=== PATIENT | female | born 1960 | race Caucasian/White ===

== ENCOUNTER 2018-12-01 21:02 | Inpatient (IN) | payer MEDICARE ==
[2018-12-01 21:56] LABS: #Basophils 0.1 thou/uL (0.0-0.2); #Eosinphils 0.1 thou/uL (0.0-0.7); #Lymphocytes 1.5 thou/uL (1.20-3.40); #Monocytes 0.6 thou/uL (0.11-0.59); #Neutrophils 6.3 thou/uL (1.40-6.50); %Basophils 0.7 % (0.0-1.0); %Eosinophils 1.3 % (0.0-10.0); %Lymphocytes 17.7 % (21.0-51.0); %Monocytes 7.1 % (0.0-10.0); %Neutrophils 73.2 % (42.0-75.0); Hemoglobin 9.6 g/dL (12.0-16.0); Mean Corpuscular HGB CONC 32.6 g/dL (32.0-36.0); Mean Corpuscular Hemoglobin 27.1 pg (27.0-31.0); Mean Corpuscular Volume 83.1 fL (78.0-98.0); Mean Platelet Volume 9.4 fL (7.4-10.4); Platelet Count 283 thou/uL (130-400); RBC Distribution Width 19.8 % (11.5-14.5); Red Blood Cell (RBC) Count 3.53 mill/uL (4.20-5.40); White Blood Cell (WBC) Count 8.6 thou/uL (4.8-10.8)
[2018-12-01 22:02] LABS: INR-International Normal Ratio 3.8; Prothrombin Time 37.7 SEC (12.0-14.7)
[2018-12-01 22:15] LABS: ALT (SGPT) Less than 7 U/L (8-55); AST (SGOT) 11 U/L (5-34); Albumin 3.7 g/dL (3.5-5.0); Alkaline Phosphatase 60 U/L (40-150); Anion Gap 12 mmol/L (10-20); BUN (Urea Nitrogen) 38 mg/dL (9.8-20.1); Bilirubin, Total 0.7 mg/dL (0.2-1.2); Calc. Creatinine Clearance 0 mL/min (70-130); Calcium 9.6 mg/dL (7.8-10.44); Carbon Dioxide 25 mmol/L (22-29); Chloride 102 mmol/L (98-107); Estimated GFR-MDRD 24; Globulin 2.7 g/dL (2.4-3.5); Glucose 95 mg/dL (70-105); Potassium 3.4 mmol/L (3.5-5.1); Protein, Total 6.4 g/dL (6.0-8.3); Sodium 136 mmol/L (136-145)
[2018-12-02 01:12] VITALS: BMI 24.7
[2018-12-02 01:18] LABS: Troponin I 0.026 ng/mL (< 0.028)
[2018-12-02] MEDS ORDERED: Ondansetron PF 4 MG/2 ML Vial IVP PRN ×2 (02:23→07:40)
[2018-12-02] MEDS ORDERED: Sodium Chloride 0.9% 1,000 ML IV SCH (02:23)
[2018-12-02 04:42] LABS: Troponin I 0.041 ng/mL (< 0.028)
[2018-12-02] MEDS ORDERED: Diabetic Tussin 200 MG/10 ML UDCUP PO PRN (07:40)
[2018-12-02] MEDS ORDERED: hydrALAZINE 20 MG/ML VIAL SLOW IVP PRN (07:40)
[2018-12-02] MEDS ORDERED: Artificial Tears 18 DROP/0.9 ML EA EYE PRN (07:40)
[2018-12-02] MEDS ORDERED: Bisacodyl 10 MG SUPP PR PRN (07:40)
[2018-12-02] MEDS ORDERED: Sodium Chloride 0.65% Nasal 44 ML BOT EA NARE PRN (07:40)
[2018-12-02] MEDS ORDERED: Calcium Carbonate 500 MG ChewTAB PO PRN (07:40)
[2018-12-02] MEDS ORDERED: Senokot S 8.6-50 MG TAB PO PRN (07:40)
[2018-12-02] MEDS ORDERED: Eucerin (Mineral Oil/Petrolatum,White) 30 gm Jar TOP PRN (07:40)
[2018-12-02] MEDS ORDERED: Cepastat Lozenges 1 LOZ PO PRN (07:40)
[2018-12-02] MEDS ORDERED: Acetaminophen 325 MG TAB PO PRN (07:40)
[2018-12-02] MEDS ORDERED: Loperamide HCl 2 MG CAP PO PRN (07:40)
[2018-12-02] MEDS ORDERED: Loratadine 10 MG TAB PO PRN (07:40)
[2018-12-02] MEDS ORDERED: Ondansetron ODT 4 MG TAB SL PRN (07:40)
[2018-12-02] MEDS ORDERED: LEVOTHYROXINE SODIUM PO SCH (09:00)
[2018-12-02] MEDS: FLUoxetine HCl 20 MG CAP PO SCH (09:06)
[2018-12-02] MEDS: Atorvastatin Calcium 40 MG TAB PO SCH (09:06)
[2018-12-02] MEDS: 1/2 NS w/KCL 20 mEq 1,000 ML IV SCH ×2 (09:06→21:47)
[2018-12-02] MEDS: predniSONE 5 MG TAB PO SCH (09:07)
[2018-12-02] MEDS: Pantoprazole 40 MG VIAL IVP SCH ×2 (09:07→21:10)
[2018-12-02 09:24] LABS: Iron 19 ug/dL (50-170); Iron Binding Capacity, Total 339 mcg/dL (265-497)
[2018-12-02] MEDS: cycloSPORINE, Modified 25 MG CAP PO SCH ×2 (09:53→21:10)
[2018-12-02] MEDS: cycloSPORINE, Modified 100 MG CAP PO SCH ×2 (09:54→21:09)
--- NOTE | 2018-12-02 10:49 | CON ---
DATE OF CONSULTATION: HISTORY OF PRESENT ILLNESS: The patient is a 58-year-old woman, who presented with melenic stools. The patient has a history of aortic valve replacement. Nearly 20 years ago, the patient placement of an aortic valve. She has been on chronic anticoagulation. The patient has had previous GI hemorrhages. The patient most recently 4 months ago had a peripheral stent placed. Plavix was added to her medications which included Coumadin and aspirin. The patient states she recently that developed melenic stools. She presented to the emergency room. The patient's INR had recently been elevated. The patient denies having any chest discomfort. PAST MEDICAL HISTORY: 1. AVR. 2. Peripheral vascular disease. 3. Hypertension. 4. History of renal transplantation. 5. Dyslipidemia. 6. Hypothyroidism. PAST SURGICAL HISTORY: , renal transplant, aortic valve replacement, ankle surgery and a . SOCIAL HISTORY: Nonsmoker. MEDICATIONS: 1. Coumadin 7.5 mg at bedtime. 2. Prednisone 5 daily. 3. Prilosec 20 daily. 4. CellCept 1000 b.i.d. 5. Prilosec 20 daily. 6. Toprol 50 XL daily. 7. Synthroid 75 mcg daily. 8. Imdur 60 q.a.m. 9. Prozac 20 daily. 10. Hydrochlorothiazide 12.5 daily. 11. Aspirin 81 daily. 12. Plavix 75 daily. 13. Lipitor 40 at bedtime. 14. Cyclosporine 25 mg p.o. b.i.d. 15. Docosahexaenoic acid 2000 mg daily. FAMILY HISTORY: Positive family history of heart disease. ALLERGIES: ALLERGIC TO OPIOIDS AND CIPROFLOXACIN. REVIEW OF SYSTEMS: Ten-point system, otherwise unremarkable. PHYSICAL EXAMINATION: GENERAL: This is a pale woman, in no acute distress. VITAL SIGNS: Blood pressure of 112/58. NECK: No jugular venous distention. LUNGS: Clear to auscultation. HEART: Regular rate and rhythm. Normal S1 and S2 with an aortic click. 3/6 systolic murmur. ABDOMEN: Nondistended. EXTREMITIES: Showed no edema. VASCULAR: Radial pulses 2+. LABORATORY DATA: Sodium 136, potassium 3.4, chloride 102, bicarbonate 25, BUN 30, and creatinine is 2.1. Troponin was 0.041. Her white blood cell count is 8.6, hemoglobin 9.6, hematocrit 29.4, and platelets 283. INR was 3.8. IMAGING DATA: EKG revealed her to have sinus bradycardia with a left bundle- branch block. IMPRESSION: 1. Gastrointestinal hemorrhage, on triple drug therapy. 2. History of aortic valve replacement. 3. History of renal transplant. 4. Hypertension. 5. History of peripheral vascular disease, status post percutaneous transluminal coronary angioplasty and stent. 6. Dyslipidemia. PLAN: This patient relates with a GI hemorrhage, she was on triple drug therapy. The patient can be taken off Plavix and she had a peripheral stent. We will hold aspirin and Coumadin at this time. It is possible to safely hold the anticoagulation for approximately a week with a mechanical aortic valve. We will await GI evaluation. We will check the patient's echocardiogram and follow this patient with you through her hospitalization. Job ID: [id number] LEIA
[2018-12-02] MEDS: Mycophenolate 250 MG CAP PO SCH ×2 (10:52→21:09)
--- NOTE | 2018-12-02 12:09 | HP ---
PRIMARY CARE PHYSICIAN: Dr. Dahiana Gordon at [facility]. REASON FOR ADMISSION: GI bleed. HISTORY OF PRESENT ILLNESS: A 58-year-old female, who has history of a mechanical aortic wall and for that she is on chronic anticoagulation therapy with warfarin. She is also having stent in her right lower extremity for peripheral arterial disease, which was done about a year ago and she is taking aspirin as well as Plavix chronically. The patient was having coffee-ground emesis and she was also having black tarry stool. The patient was feeling generalized weak. This was going on for last about 3 to 4 days, but coffee-ground vomiting started yesterday. She was feeling dizzy, lightheaded, and that is why she went to [facility], where her hemoglobin was found 6.5. She was given 2 units of blood transfusion. She was given vitamin K as well as Protonix and subsequently, she was transferred to our hospital for further evaluation and treatment. The patient reports that she had similar type of problem in past and at that time she had endoscopy done in 2008. Since then, she never had any endoscopy done. The patient denies any NSAID abuse. She denies any fever or chills. She denies any UTI symptoms. She denies any chest pain, palpitation, or shortness of breath. She denies any orthopnea, PND, or leg swelling. REVIEW OF SYSTEMS: CONSTITUTIONAL: Negative for weight loss or gain, ability to conduct usual activities. SKIN: Negative for rash, itching. EYES: Negative for double vision, pain. ENT/MOUTH: Negative for nose bleeding, neck stiffness, pain, tenderness. CARDIOVASCULAR: Negative for palpitations, dyspnea on exertion, orthopnea. RESPIRATORY: Negative for shortness of breath, wheezing, cough, hemoptysis, fever or night sweats. GASTROINTESTINAL: Negative for poor appetite, abdominal pain, heartburn, nausea, vomiting, constipation, or diarrhea. GENITOURINARY: Negative for urgency, frequency, dysuria, nocturia. MUSCULOSKELETAL: Negative for pain, swelling. NEUROLOGIC/PSYCHIATRIC: Negative for anxiety, depression. ALLERGY/IMMUNOLOGIC: Negative for skin rash, bleeding tendency. Please see my HPI for pertinent positives and negatives. All other review of systems reviewed and negative except as mentioned in HPI. PAST MEDICAL HISTORY: Hypertension, chronic kidney disease stage 4, hypothyroidism, peripheral arterial disease, coronary artery disease, dyslipidemia, hypothyroidism, history of renal transplant, immunosuppressive status, and gastroesophageal reflux disease. PAST SURGICAL HISTORY: Left kidney transplantation, bilateral nephrectomy, mechanical aortic wall, , peripheral arterial disease stent placement, and right ankle ORIF. PAST PSYCHIATRIC HISTORY: Anxiety and depression. SOCIAL HISTORY: The patient is an ex-smoker. She quit smoking several years ago. She denies any tobacco, alcohol, or illicit drug abuse. FAMILY HISTORY: No family history of coronary artery disease, stroke, or cancer. ALLERGIES: CIPROFLOXACIN AND OPIOID. CURRENT HOME MEDICATIONS: 1. Tylenol PM 2 tablet p.o. at bedtime. 2. Aspirin 81 mg daily. 3. Lipitor 40 mg p.o. daily. 4. Plavix 75 mg p.o. daily. 5. Cyclosporine 125 mg p.o. b.i.d. 6. Fish oil daily. 7. Prozac 20 mg daily. 8. Hydrochlorothiazide 12.5 mg daily. 9. Imdur 60 mg daily. 10. Synthroid 75 mcg p.o. daily. 11. Metoprolol with hydrochlorothiazide 1 tablet daily. 12. CellCept 1000 mg b.i.d. 13. Omeprazole 20 mg daily. 14. Prednisone 5 mg daily. 15. Warfarin 7.5 mg p.o. daily. EMERGENCY ROOM COURSE: The patient was given Protonix 80 mg, vitamin K 5 mg, and 2 units of blood transfusion. PHYSICAL EXAMINATION: VITAL SIGNS: Currently; temperature 98.7, pulse 72, respiratory rate 18, saturation 98% on room air, and blood pressure 112/58. Weight 148 pounds. GENERAL: The patient is currently alert, awake, in no obvious acute distress. HEENT: Head, normocephalic and atraumatic. Eyes, conjunctivae pale. No icterus. No nystagmus. ENT, pale mucous membranes. No oral lesion. No pharyngeal erythema. No exudate. NECK: Supple. No JVD. No thyromegaly. No carotid bruit. LUNGS: Clear to auscultation without any rhonchi or rales. CARDIAC: S1 and S2. Regular. Mechanical heart sound noted. Systolic murmur present. ABDOMEN: Soft and benign without any tenderness. EXTREMITIES: No edema. NEUROLOGIC: Nonfocal examination. BACK: Unremarkable. SKIN: No skin rash. Pallor plus. PSYCHIATRIC: Normal affect. SIGNIFICANT LABORATORY DATA: WBC 8.4, hemoglobin 6.2, MCV 77.4, and platelet 313. INR 5.6. BMP; sodium 139, potassium 4.3, chloride 103, carbon dioxide 24, BUN 44, creatinine 2.26, glucose 126, calcium 9.8, AST 9, ALT 7, alkaline phosphatase 60, and albumin 3.7. CK-MB 1.4 and troponin 0.024. Iron 19, TIBC 339, and percent saturation 6. Urinalysis normal. Stool for guaiac positive. Chest x-ray based on my review no acute cardiopulmonary process. ASSESSMENT AND PLAN: 1. Acute gastrointestinal bleed. The patient has coffee-grounds emesis, melena, and guaiac-positive stool. Her hemoglobin is 6.4. She required 2 units of blood transfusion. Currently, hemoglobin is 9.6. The patient is on aspirin and Plavix, as well as warfarin and prednisone, that makes her high risk for gastrointestinal bleed. Her coagulopathy has been reversed partially with vitamin K. At this point, I will consult Cardiology as well as Gastroenterology to determine the starting point of chronic anticoagulation therapy given her mechanical aortic wall. At this point, we will hold on aspirin, warfarin, and Plavix. We will consult medical laboratory specialist for endoscopic evaluation. We will monitor H and H. We will continue with Protonix 40 mg IV b.i.d. 2. Anemia due to acute blood loss. The patient was given 2 units of blood transfusion. Currently, hemoglobin is 9.6. We will repeat CBC tomorrow and we will repeat hemoglobin any time whenever the patient has any episode of bleeding. Our goal is to keep hemoglobin above 7. 3. Warfarin-induced coagulopathy. Given vitamin K and currently INR is 3.8. Given mechanical aortic wall, the patient will need warfarin and aspirin, but we will consult Cardiology when to start this medication as well as we will wait for endoscopic result as well. 4. Chronic kidney disease stage 4. We will monitor renal function. The patient is following Nephrology at [facility]. 5. History of renal transplant. The patient is on chronic immunosuppressive therapy with cyclosporine, mycophenolate mofetil, and prednisone, which we will continue as per home dosage. 6. Immunosuppressed status. The patient is immunosuppressive from immunosuppressive medication. We will watch for any kind of infection. 7. Dyslipidemia. Continue Lipitor 40 mg p.o. at bedtime. 8. Anxiety and depression. Continue Prozac 20 mg p.o. daily. 9. Hypothyroidism. Continue levothyroxine 75 mcg p.o. daily. 10. Gastroesophageal reflux disease. Continue Protonix 40 mg IV b.i.d. 11. Hypertension, but currently low blood pressure and that is why we will hold on blood pressure medication today and whenever blood pressure permits, then we will resume blood pressure medication. 12. Deep venous thrombosis prophylaxis. Sequential compression devices boots. 13. Gastrointestinal prophylaxis. The patient is already on Protonix therapy. 14. Hypokalemia. We will replace IV fluid with potassium and we will repeat labs tomorrow. CODE STATUS: The patient is full code. The patient does not have any surrogate decision maker. DISPOSITION PLAN: Based on clinical course, we are expecting the patient's stay in hospital more than 2 midnights. Plan of care discussed with the patient and family member. Job ID: [id number]
--- NOTE | 2018-12-02 14:02 | CON ---
DATE OF CONSULTATION: 12/02/2018 REASON FOR CONSULTATION: Anemia and gastrointestinal bleed. HISTORY OF PRESENT ILLNESS: Ms. Cherry is a 58-year-old female, who presented to [facility] [facility] initially after having an episode of coffee-ground emesis. There, she was noted to be profoundly anemic with a hemoglobin of 6.5 with a supratherapeutic INR of 8.5. She does not have any abdominal pain. She does have preceding periodic dysphagia mostly to solid food. She denies having any melenic stool. As mentioned before, she did have coffee-grounds emesis but no ac hematemesis. Currently, she had received 2 units of RBC transfusion and vitamin K in the outlying ER. This morning, her INR has decreased down to 3+. Currently, she feels fine with normal vitals without any other physical complaints. PAST MEDICAL HISTORY: 1. Hypothyroidism. 2. Hypertension. 3. Hyperlipidemia. 4. History of GI bleed in 2008. Reportedly had both upper and lower endoscopy. 5. Status post aortic valve replacement, mechanical bowel on chronic anticoagulant. 6. Status post nephrectomy. 7. Kidney transplant bilaterally. 8. . 9. Peripheral vascular disease with one lower extremity stent. HOME MEDICATIONS: Include: 1. Coumadin. 2. Prednisone. 3. CellCept. 4. Levothyroxine. 5. Imdur. 6. HCTZ. 7. Cyclosporine. 8. Plavix. 9. Aspirin. 10. Tylenol p.r.n. pain. SOCIAL HISTORY: The patient has prior history of smoking. No active tobacco or alcohol usage. FAMILY HISTORY: Negative for any known GI problem, liver disease, or GI malignancy. PHYSICAL EXAMINATION: VITAL SIGNS: Temperature is 97.8, blood pressure 123/71, pulse of 75. HEENT: Head exam shows anicteric sclerae. NECK: Supple. CV: Shows normal S1 and S2. Regular rate and rhythm. CHEST: Shows breath sounds. No adventitious sounds. ABDOMEN: Soft, nontender. Good bowel sounds. EXTREMITIES: Shows no edema. LABORATORY DATA: WBC 8.6, hemoglobin 9.6 (after 2 units RBC). Platelet count of 283, MCV of 83.1, and INR 3.8. Electrolytes within normal range. Creatinine 2.1, bilirubin 0.7, AST of 11, ALT of less than 7. ASSESSMENT: 1. Evidence of upper gastrointestinal bleed characterized as coffee-ground emesis. The patient does not have any signs of ongoing severe bleeding at the present time. 2. Anemia from acute gastrointestinal blood loss. Unknown baseline at this point. Her blood count has risen after transfusion. RECOMMENDATIONS: 1. Proceed with endoscopy to elucidate source of bleeding and to control if necessary. 2. Further recommendation to follow pending endoscopic finding. Job ID: [id number]
--- NOTE | 2018-12-02 14:57 | OP ---
DATE OF PROCEDURE: 12/02/2018 PROCEDURE PERFORMED: Esophagogastroduodenoscopy. PREMEDICATION: Given by Anesthesiology Department. PREPROCEDURE DIAGNOSES: 1. Coffee-grounds emesis. 2. Severe anemia. POSTPROCEDURE DIAGNOSES: 1. LA grade C severe erosive esophagitis with stigmata of recent bleed. 2. 5 cm hiatal hernia. 3. Normal stomach and duodenum. DESCRIPTION OF PROCEDURE: Written consents were obtained prior to procedure. After adequate sedation, forward viewing endoscope was advanced down the stomach under direct vision to the second portion of duodenum. The duodenum and the bulb appeared normal. The pylorus was patent. The gastric antrum, body, fundus, and cardia all appeared normal. Retroflexion showed a hiatal hernia. The gastric narrowing appears at 40 cm with Z-line approximately at 35 cm. In the lower esophagus, there was severe erosive esophagitis circumferentially involved in the lower 15 cm of the esophagus. There was adherent amount of blood clot that was declotted. No active bleeding was seen. The upper esophagus appeared normal. The patient tolerated the procedure well. ASSESSMENT: 1. Severely erosive esophagitis. 2. Large hiatal hernia. RECOMMENDATION: 1. Pantoprazole 40 mg p.o. b.i.d. on discharge. 2. The patient needs to be re-scoped in approximately 3 months to evaluate status of her esophagitis and to exclude any underlying Mejia's. Job ID: [id number]
[2018-12-02] MEDS ORDERED: Lidocaine 1% PF 5 ML VIAL ONE (16:05)
[2018-12-02] MEDS ORDERED: PROPOFOL 200 MG/20 ML VIAL ONE (16:05)
[2018-12-02] MEDS: Zolpidem Tartrate 5 MG TAB PO PRN (21:20)
[2018-12-03 05:55] LABS: INR-International Normal Ratio 1.3
[2018-12-03 06:00] LABS: #Basophils 0.1 thou/uL (0.0-0.2); #Eosinphils 0.2 thou/uL (0.0-0.7); #Lymphocytes 1.5 thou/uL (1.20-3.40); #Monocytes 0.6 thou/uL (0.11-0.59); %Basophils 1.1 % (0.0-1.0); %Eosinophils 2.9 % (0.0-10.0); %Lymphocytes 28.4 % (21.0-51.0); %Monocytes 10.7 % (0.0-10.0); %Neutrophils 56.9 % (42.0-75.0); Hemoglobin 9.4 g/dL (12.0-16.0); Mean Corpuscular HGB CONC 31.9 g/dL (32.0-36.0); Mean Corpuscular Hemoglobin 26.9 pg (27.0-31.0); Mean Corpuscular Volume 84.4 fL (78.0-98.0); Mean Platelet Volume 9.9 fL (7.4-10.4); Platelet Count 259 thou/uL (130-400); RBC Distribution Width 19.8 % (11.5-14.5); Red Blood Cell (RBC) Count 3.49 mill/uL (4.20-5.40); White Blood Cell (WBC) Count 5.2 thou/uL (4.8-10.8)
[2018-12-03] MEDS: Levothyroxine Sodium 75 MCG TAB PO SCH (06:19)
[2018-12-03 06:24] LABS: ALT (SGPT) 7 U/L (8-55); AST (SGOT) 14 U/L (5-34); Albumin 3.4 g/dL (3.5-5.0); Alkaline Phosphatase 53 U/L (40-150); Anion Gap 15 mmol/L (10-20); BUN (Urea Nitrogen) 19 mg/dL (9.8-20.1); Bilirubin, Total 1.1 mg/dL (0.2-1.2); Calc. Creatinine Clearance 43 mL/min (70-130); Calcium 9.4 mg/dL (7.8-10.44); Carbon Dioxide 21 mmol/L (22-29); Chloride 107 mmol/L (98-107); Estimated GFR-MDRD 35; Globulin 2.7 g/dL (2.4-3.5); Glucose 72 mg/dL (70-105); Potassium 3.9 mmol/L (3.5-5.1); Protein, Total 6.1 g/dL (6.0-8.3); Sodium 139 mmol/L (136-145)
--- NOTE | 2018-12-03 09:16 | PDOC.PN ---
- Subjective Encounter Start Date: 12/03/18 Encounter Start Time: 07:20 Patient seen and examined. No new complaints. No overnight events - Objective Resuscitation Status - Order Detail: 12/02/18 07:37 Resuscitation Status Routine Resuscitation Status: FULL: Full Resuscitation MAR Reviewed: Yes Vital Signs & Weight: Vital Signs (12 hours) Temp Pulse Resp BP Pulse Ox 12/03/18 07:33 98.1 F 59 L 20 142/71 H 96 12/03/18 03:12 98.2 F 81 18 118/65 99 Weight Admit Weight 148 lb 4.8 oz Weight 149 lb 2 oz I&O: 12/02/18 12/03/18 12/04/18 06:59 06:59 06:59 Intake Total 227 1365 Output Total 2200 Balance 227 -835 Result Diagrams: 12/03/18 05:16 12/03/18 05:16 EKG Reviewed by me: Yes (nsr) Phys Exam - Physical Examination Constitutional: NAD HEENT: PERRLA, moist MMs, sclera anicteric Neck: no JVD, supple Respiratory: no wheezing, no rales, no rhonchi Cardiovascular: RRR, no rub SM+, prosthetic click+ Gastrointestinal: soft, non-tender, no distention, positive bowel sounds Musculoskeletal: no edema, pulses present Neurological: non-focal, normal sensation Lymphatic: no nodes Psychiatric: normal affect, A&O x 3 Skin: no rash, normal turgor Dx/Plan (1) Acute GI bleeding Code(s): K92.2 - GASTROINTESTINAL HEMORRHAGE, UNSPECIFIED Status: Acute (2) Anemia due to acute blood loss Code(s): D62 - ACUTE POSTHEMORRHAGIC ANEMIA Status: Acute (3) Erosive esophagitis Code(s): K22.10 - ULCER OF ESOPHAGUS WITHOUT BLEEDING Status: Acute (4) Warfarin-induced coagulopathy Code(s): D68.32 - HEMORRHAGIC DISORD D/T EXTRINSIC CIRCULATING ANTICOAGULANTS; T45.515A - ADVERSE EFFECT OF ANTICOAGULANTS, INITIAL ENCOUNTER Status: Acute (5) Anxiety and depression Code(s): F41.9 - ANXIETY DISORDER, UNSPECIFIED; F32.9 - MAJOR DEPRESSIVE DISORDER, SINGLE EPISODE, UNSPECIFIED Status: Chronic (6) CKD (chronic kidney disease) stage 4, GFR 15-29 ml/min Code(s): N18.4 - CHRONIC KIDNEY DISEASE, STAGE 4 (SEVERE) Status: Chronic (7) Chronic anticoagulation Code(s): Z79.01 - MISSIONARY COORDINATOR (CURRENT) USE OF ANTICOAGULANTS Status: Chronic (8) Dyslipidemia Code(s): E78.5 - HYPERLIPIDEMIA, UNSPECIFIED Status: Chronic (9) GERD (gastroesophageal reflux disease) Code(s): K21.9 - GASTRO-ESOPHAGEAL REFLUX DISEASE WITHOUT ESOPHAGITIS Status: Chronic (10) H/O kidney transplant Status: Chronic (11) H/O mechanical aortic valve replacement Code(s): Z95.2 - PRESENCE OF PROSTHETIC HEART VALVE Status: Chronic (12) Hiatal hernia Code(s): K44.9 - DIAPHRAGMATIC HERNIA WITHOUT OBSTRUCTION OR GANGRENE Status: Chronic (13) Hypertension Code(s): I10 - ESSENTIAL (PRIMARY) HYPERTENSION Status: Chronic (14) Hypothyroidism Code(s): E03.9 - HYPOTHYROIDISM, UNSPECIFIED Status: Chronic (15) Immunosuppressed status Code(s): D89.9 - DISORDER INVOLVING THE IMMUNE MECHANISM, UNSPECIFIED Status: Chronic - Plan cont current plan of care * will start warfarin when GI OK * medication reviewed as below * symptomatic treatment * overall stable medically * will consider discharge tomorrow * repeat labs tomorrow * ambulate as tolerated. Review of Systems - Review of Systems ENT: negative: Ear Pain, Ear Discharge, Nose Pain, Nose Discharge, Nose Congestion, Mouth Pain, Mouth Swelling, Throat Pain, Throat Swelling, Other Respiratory: negative: Cough, Dry, Shortness of Breath, Hemoptysis, SOB with Excertion, Pleuritic Pain, Sputum, Wheezing Cardiovascular: negative: chest pain, palpitations, orthopnea, paroxysmal nocturnal dyspnea, edema, light headedness, other Gastrointestinal: negative: Nausea, Vomiting, Abdominal Pain, Diarrhea, Constipation, Melena, Hematochezia, Other Genitourinary: negative: Dysuria, Frequency, Incontinence, Hematuria, Retention , Other Musculoskeletal: negative: Neck Pain, Shoulder Pain, Arm Pain, Back Pain, Hand Pain, Leg Pain, Foot Pain, Other - Medications/Allergies Allergies/Adverse Reactions: Allergies Allergy/AdvReac Type Severity Reaction Status Date / Time ciprofloxacin Allergy Verified 12/02/18 01:17 Opioids-Meperidine and Allergy Verified 12/02/18 01:17 Related Medications: Current Medications Acetaminophen (Tylenol) 650 mg PO Q4H PRN PRN Reason: Headache/Fever/Mild Pain (1-3) Artificial Tears (Tears Naturale) 2 drop EA EYE PRN PRN PRN Reason: Dry Eyes Atorvastatin Calcium (Lipitor) 40 mg PO DAILY [facility] Last Admin: 12/02/18 09:06 Dose: 40 mg Bisacodyl (Dulcolax) 10 mg NM DAILYPRN PRN PRN Reason: Constipation Calcium Carbonate (Tums) 1,000 mg PO Q4H PRN PRN Reason: Heartburn or Indigestion Cyclosporine (Neoral) 25 mg PO BID [facility] Last Admin: 12/02/18 21:10 Dose: 25 mg Cyclosporine (Neoral) 100 mg PO BID [facility] Last Admin: 12/02/18 21:09 Dose: 100 mg Fluoxetine HCl (Prozac) 20 mg PO DAILY [facility] Last Admin: 12/02/18 09:06 Dose: Not Given Guaifenesin (Robitussin Sf) 200 mg PO Q4H PRN PRN Reason: Cough Hydralazine HCl (Apresoline) 10 mg SLOW IVP Q4H PRN PRN Reason: SBP > 180 and HR < 70 Levothyroxine Sodium (Synthroid) 75 mcg PO 0600 [facility] Last Admin: 12/03/18 06:19 Dose: 75 mcg Loperamide HCl (Imodium) 2 mg PO PRN PRN PRN Reason: Diarrhea/Loose Stools Loratadine (Claritin) 10 mg PO DAILYPRN PRN PRN Reason: Sinus Symptoms Mineral Oil/White Petrolatum (Eucerin Cream) 0 gm TOP BIDPRN PRN PRN Reason: Dry Skin Mycophenolate Mofetil (Cellcept) 1,000 mg PO BID [facility] Last Admin: 12/02/18 21:09 Dose: 1,000 mg Ondansetron HCl (Zofran Odt) 4 mg SL Q6H PRN PRN Reason: Nausea/Vomiting Ondansetron HCl (Zofran) 4 mg IVP Q6H PRN PRN Reason: Nausea/Vomiting Pantoprazole Sodium (Protonix) 40 mg IVP Q12HR [facility] Last Admin: 12/02/18 21:10 Dose: 40 mg Prednisone (Prednisone) 5 mg PO DAILY [facility] Last Admin: 12/02/18 09:07 Dose: 5 mg Senna/Docusate Sodium (Senokot S) 2 tab PO BID PRN PRN Reason: Constipation Sodium Chloride ([place] Nasal [place] 0.65%) 0 ml EA NARE QIDPRN PRN PRN Reason: Nasal Congestion Sodium Chloride (Flush - Normal Saline) 10 ml IVF Q12HR JANEL[facility] Last Admin: 12/02/18 21:10 Dose: 10 ml Sodium Chloride (Flush - Normal Saline) 10 ml IVF PRN PRN PRN Reason: Saline Flush Throat Lozenges (Cepastat Lozenges) 1 mikhail PO Q2H PRN PRN Reason: Sore Throat Zolpidem Tartrate (Ambien) 5 mg PO HSPRN PRN PRN Reason: Insomnia Last Admin: 12/02/18 21:20 Dose: 5 mg
[2018-12-03] MEDS: predniSONE 5 MG TAB PO SCH (09:33)
[2018-12-03] MEDS: FLUoxetine HCl 20 MG CAP PO SCH (09:33)
[2018-12-03] MEDS: Atorvastatin Calcium 40 MG TAB PO SCH (09:33)
[2018-12-03] MEDS: Mycophenolate 250 MG CAP PO SCH ×2 (09:34→21:25)
[2018-12-03] MEDS: cycloSPORINE, Modified 100 MG CAP PO SCH ×2 (09:35→21:25)
[2018-12-03] MEDS: Pantoprazole 40 MG VIAL IVP SCH (09:35)
[2018-12-03] MEDS: cycloSPORINE, Modified 25 MG CAP PO SCH ×2 (09:36→21:25)
--- NOTE | 2018-12-03 16:57 | PRG ---
DATE OF SERVICE: 12/03/2018 SUBJECTIVE: The patient feels fine. She denies having any nausea, vomiting, or abdominal pain. No evidence of bleeding. OBJECTIVE: VITAL SIGNS: Temperature is 98.9, blood pressure 135/66, pulse is 77. GENERAL: She is alert, sitting up, in no distress. HEENT: Shows anicteric sclerae. Oropharynx clear. CV: Exam shows normal S1 and S2. Regular rate and rhythm. CHEST: Shows bilateral breath sounds. ABDOMEN: Soft, nontender. No palpable mass or organomegaly. She has active bowel sounds. EXTREMITIES: Show no edema. LABORATORY DATA: WBCs 5.2, hemoglobin 9.4, platelet count of 259. INR is 1.3. Electrolytes within normal range. Creatinine 1.53. ASSESSMENT: 1. Gastroesophageal reflux with hiatal hernia and severe erosive esophagitis. 2. Status post upper gastrointestinal bleeding from supratherapeutic INR. No further signs of bleeding with stable blood count. RECOMMENDATION: 1. Advanced diet to regular. 2. The patient can change to p.o. pantoprazole 40 mg b.i.d. 3. Can be discharged to home from GI standpoint tomorrow if all goes well. We will need to have followup EGD at [facility] in 2 to 3 months to assess healing and exclude any underlying Mejia's. Job ID: [id number]
[2018-12-03] MEDS: Zolpidem Tartrate 5 MG TAB PO PRN (21:26)
[2018-12-04 05:08] LABS: #Eosinphils 0.2 thou/uL (0.0-0.7); #Lymphocytes 1.6 thou/uL (1.20-3.40); #Monocytes 0.5 thou/uL (0.11-0.59); #Neutrophils 3.1 thou/uL (1.40-6.50); %Basophils 0.6 % (0.0-1.0); %Eosinophils 3.4 % (0.0-10.0); %Lymphocytes 29.1 % (21.0-51.0); %Monocytes 9.4 % (0.0-10.0); %Neutrophils 57.6 % (42.0-75.0); Hemoglobin 9.9 g/dL (12.0-16.0); Mean Corpuscular HGB CONC 31.9 g/dL (32.0-36.0); Mean Corpuscular Hemoglobin 27.4 pg (27.0-31.0); Mean Platelet Volume 10.2 fL (7.4-10.4); Platelet Count 276 thou/uL (130-400); RBC Distribution Width 19.7 % (11.5-14.5); Red Blood Cell (RBC) Count 3.61 mill/uL (4.20-5.40); White Blood Cell (WBC) Count 5.4 thou/uL (4.8-10.8)
[2018-12-04 05:12] LABS: INR-International Normal Ratio 1.1; Prothrombin Time 14.2 SEC (12.0-14.7)
[2018-12-04 05:24] LABS: Anion Gap 16 mmol/L (10-20); BUN (Urea Nitrogen) 18 mg/dL (9.8-20.1); Calc. Creatinine Clearance 46 mL/min (70-130); Calcium 9.5 mg/dL (7.8-10.44); Carbon Dioxide 22 mmol/L (22-29); Chloride 105 mmol/L (98-107); Estimated GFR-MDRD 38; Glucose 85 mg/dL (70-105); Potassium 3.7 mmol/L (3.5-5.1); Sodium 139 mmol/L (136-145)
[2018-12-04] MEDS: Levothyroxine Sodium 75 MCG TAB PO SCH (06:12)
[2018-12-04] MEDS: Atorvastatin Calcium 40 MG TAB PO SCH (09:05)
[2018-12-04] MEDS: cycloSPORINE, Modified 25 MG CAP PO SCH (09:05)
[2018-12-04] MEDS: Mycophenolate 250 MG CAP PO SCH (09:05)
[2018-12-04] MEDS: cycloSPORINE, Modified 100 MG CAP PO SCH (09:05)
[2018-12-04] MEDS: predniSONE 5 MG TAB PO SCH (09:05)
[2018-12-04] MEDS: FLUoxetine HCl 20 MG CAP PO SCH (09:06)
--- NOTE | 2018-12-04 11:07 | DIS ---
DATE OF ADMISSION: 12/01/2018 DATE OF DISCHARGE: 12/04/2018 PRIMARY CARE PHYSICIAN: Dr. Bel Munoz. DISCHARGE DISPOSITION: Home. PRIMARY DISCHARGE DIAGNOSES: 1. Acute gastrointestinal bleed, resolved. 2. Anemia due to acute blood loss. 3. Erosive esophagitis. 4. Warfarin-induced coagulopathy. SECONDARY DISCHARGE DIAGNOSES: Renal transplant status, immunosuppressed status, hypothyroidism, hypertension, hiatal hernia, history of mechanical aortic valve replacement, gastroesophageal reflux disease, dyslipidemia, chronic kidney disease stage 4, chronic anticoagulation, anxiety and depression. PRIMARY PROCEDURE/OPERATION: Dr. Shell did upper endoscopy and found with erosive esophagitis. Stomach and duodenum were normal. RADIOLOGICAL INVESTIGATION: Echocardiography showed diastolic dysfunction, normal functioning mechanical aortic valve. SIGNIFICANT LABORATORY DATA: WBC 5.4, hemoglobin 9.9, platelet 276. INR 1.1. Sodium 139, creatinine 1.43, calcium 9.5. LFT normal. DISCHARGE MEDICATIONS: 1. Tylenol PM one or two tablets p.o. at bedtime p.r.n. 2. Aspirin 81 mg daily. 3. Lipitor 40 mg daily. 4. Cyclosporine 125 mg b.i.d. 5. Fish oil 2000 mg p.o. daily. 6. Prozac 20 mg daily. 7. Hydrochlorothiazide 12.5 mg daily. 8. Imdur 60 mg daily. 9. Synthroid 75 mcg p.o. daily. 10. Toprol with hydrochlorothiazide 1 tablet daily. 11. CellCept 1000 mg p.o. b.i.d. 12. Prednisone 5 mg daily. 13. Warfarin 7.5 mg daily. 14. Ferrous sulfate 325 mg p.o. daily. 15. Protonix 40 mg p.o. b.i.d. CONTRAINDICATION: None. CODE STATUS: Full code. INPATIENT PIPE COVERER HELPER: Dr. Whalen, financial accounting analyst was following; Dr. Alfredo Shell, woodworking machine operator was consulted. TEST RESULTS PENDING ON DISCHARGE: None. ALLERGIES: CIPROFLOXACIN AND OPIOID. DISCHARGE PLAN: Posthospital, the patient has appointment with Dr. Bel Munoz at [facility] in one week. The patient will follow up with her financial accounting analyst. HOSPITAL COURSE: A 58-year-old female with above-mentioned medical problem, who was admitted by me, please see my HPI for further details. The patient was taking warfarin for her mechanical mitral valve, and she is also on aspirin, Plavix, and prednisone. She was at high risk for bleeding and she had coffee-ground emesis at home. When she came to emergency room, her hemoglobin was 6.2. She was given total of 1 unit of blood transfusion and her hemoglobin improved to 9.9 and remained stable. She also had coagulopathy from warfarin and that was corrected with vitamin K. By the time of discharge, her INR was 1.1. For anemia, we consulted woodworking machine operator and they found erosive esophagitis. For her mechanical aortic valve, we consulted Cardiology and we did echocardiography. The patient's medical problems remained stable. We restarted warfarin and low dose of aspirin upon discharge. We are holding Plavix for now. The patient will follow up with primary care physician. I have seen and examined the patient at bedside today. All review of systems reviewed with her and negative. Her physical examination is normal. She has mechanical aortic valve click. On discharge, we changed to p.o. Protonix twice daily along with ferrous sulfate. The patient is medically stable for discharge today. Job ID: [id number]
[2018-12-04 12:27] VITALS: BP 135/81; TEMP 98.2
== END 2018-12-04 13:05 | disposition home or self-care (01) | DRG 381 ==
LOC: ERS 21:02 → 2NO 22:25
PROVIDERS: ADMIT Internal Medicine; ATTEND Internal Medicine
PROC: 0DJ08ZZ Inspection of Upper Intestinal Tract, Via Natural or Artificial Opening Endoscopic (ICD-10-PCS; principal; 2018-12-01)
DX: K22.10 Ulcer of esophagus without bleeding (principal); D62 Acute posthemorrhagic anemia; N18.4 Chronic kidney disease, stage 4 (severe); Z94.0 Kidney transplant status; K21.0 Gastro-esophageal reflux disease with esophagitis; K92.2 Gastrointestinal hemorrhage, unspecified; Z79.01 Long term (current) use of anticoagulants; I12.9 Hypertensive chronic kidney disease with stage 1 through stage 4 chronic kidney disease, or unspecified chronic kidney disease; I73.9 Peripheral vascular disease, unspecified; E78.5 Hyperlipidemia, unspecified; E03.9 Hypothyroidism, unspecified; I25.10 Atherosclerotic heart disease of native coronary artery without angina pectoris; Z95.2 Presence of prosthetic heart valve; E87.6 Hypokalemia; F41.9 Anxiety disorder, unspecified; F32.9 Major depressive disorder, single episode, unspecified; K44.9 Diaphragmatic hernia without obstruction or gangrene
CPT/HCPCS: 36415; 80048; 80053; 82728; 83540; 83550; 84484; 85025; 85610; 86850; 86900; 86901; 93005; 93306; C9113; J2001; J2704; J3480; J7502; J7512; J7515; J7517

== ENCOUNTER 2020-10-23 23:18 | Inpatient (IN) | payer MEDICARE ==
[2020-10-24 00:04] LABS: Prothrombin Time 88.1 sec (12.0-14.7)
[2020-10-24 00:14] LABS: INR-International Normal Ratio 10.9; PTT 169.2 sec (22.9-36.1)
[2020-10-24] MEDS ORDERED: Phytonadione 10 MG/ML AMP ONE (00:46)
[2020-10-24 00:50] LABS: SARS-CoV-2 NAA Rapid Test Not Detected (NotDetected)
[2020-10-24] MEDS ORDERED: Norepinephrine 8 MG/0.9% NS 250 ML IVPB SCH (01:00)
[2020-10-24] MEDS ORDERED: HUMAN PROTHROMBIN COMPLX IV SCH (01:00)
[2020-10-24] MEDS ORDERED: Phytonadione 10 MG/ML AMP SLOW IVP SCH (01:00)
[2020-10-24] MEDS ORDERED: ADMIXTURE FEE IV SCH (01:00)
[2020-10-24] MEDS ORDERED: Cefepime 2 GM VIAL ONE (01:37)
[2020-10-24] MEDS ORDERED: Vancomycin 1 GM/200 ML BAG ONE (01:37)
[2020-10-24 01:58] LABS: #Basophils 0.1 thou/uL (0.0-0.2); #Eosinphils 0.1 thou/uL (0.0-0.7); #Lymphocytes 1.1 thou/uL (1.20-3.40); #Neutrophils 10.8 thou/uL (1.40-6.50); %Basophils 0.4 % (0.0-1.0); %Eosinophils 0.7 % (0.0-10.0); %Lymphocytes 8.1 % (21.0-51.0); %Monocytes 7.8 % (0.0-10.0); Hemoglobin 8.5 g/dL (12.0-16.0); Mean Corpuscular HGB CONC 31.7 g/dL (32.0-36.0); Mean Corpuscular Hemoglobin 26.5 pg (27.0-31.0); Mean Corpuscular Volume 83.7 fL (78.0-98.0); Mean Platelet Volume 9.8 fL (7.4-10.4); Platelet Count 263 thou/uL (130-400); RBC Distribution Width 16.7 % (11.5-14.5)
[2020-10-24 02:06] LABS: INR-International Normal Ratio 1.7; Prothrombin Time 19.9 sec (12.0-14.7)
[2020-10-24 02:07] LABS: PTT 56.8 sec (22.9-36.1)
[2020-10-24] MEDS ORDERED: Enoxaparin Sodium 60 MG/0.6 ML SYRINGE ONE (02:19)
[2020-10-24 02:21] LABS: ALT (SGPT) 136 U/L (8-55); AST (SGOT) 211 U/L (5-34); Albumin 2.4 g/dL (3.5-5.0); Alkaline Phosphatase 60 U/L (40-110); Anion Gap 15 mmol/L (10-20); BUN (Urea Nitrogen) 37 mg/dL (9.8-20.1); Bilirubin, Total 1.1 mg/dL (0.2-1.2); Calc. Creatinine Clearance 0 mL/min (70-130); Calcium 8.2 mg/dL (7.8-10.44); Carbon Dioxide 16 mmol/L (22-29); Chloride 105 mmol/L (98-107); Globulin 2.7 g/dL (2.4-3.5); Glucose 61 mg/dL (70-105); Potassium 3.7 mmol/L (3.5-5.1); Protein, Total 5.1 g/dL (6.0-8.3); Sodium 132 mmol/L (136-145)
[2020-10-24] MEDS ORDERED: [UNRECOGNIZED DRUG - REMARK] IVPB PRN (02:51)
[2020-10-24 04:21] LABS: INR-International Normal Ratio 2.3; Prothrombin Time 25.9 sec (12.0-14.7)
[2020-10-24 05:26] VITALS: BMI 22.6
[2020-10-24] MEDS ORDERED: FLU VACC QS2020-21(6MOS UP)/PF 60 MCG/0.5 ML SYRINGE IM ONE (06:15)
[2020-10-24] MEDS: Sodium Chloride 0.9% 1,000 ML IV SCH ×2 (06:17→15:07)
[2020-10-24] MEDS: Levothyroxine Sodium 75 MCG TAB PO SCH (06:18)
--- NOTE | 2020-10-24 07:36 | HP ---
REASON FOR ADMISSION: Left buttock pain. HISTORY OF PRESENT ILLNESS: This is a 60-year-old female patient who presented to [facility] complaining of left buttock pain. She described that she had a pimple that she popped that pimple, it drained pus. She was found to have external hemorrhoids and swelling of her left buttock. She was also found to have an elevated CK level and her creatinine has been worse than her baseline. She was scheduled to be admitted to our telemetry, but at some point, the patient became hypotensive, required to be on Levophed, so she was transferred to our emergency room. Currently, she is off the Levophed. She had a right subclavian access that was oozing blood. An INR was checked and it was 10. Patient is on Coumadin. She was given Kcentra and vitamin K. Her repeat INR is 1.7. She is currently being given a dose of Lovenox because she does have an aortic valve. I did review her records and it seems that she was admitted to our hospital in 2019 with a gastrointestinal bleed. PAST MEDICAL HISTORY: 1. GI bleed. 2. Hypothyroidism. 3. High blood pressure. 4. Hiatal hernia. 5. Mechanical aortic valve replacement. 6. GERD. 7. High cholesterol. 8. Chronic kidney disease, stage 4. 9. Status post renal transplant. 10. Anxiety. 11. Depression. SOCIAL HISTORY: She does not smoke. Does not drink alcohol. FAMILY HISTORY: Reviewed, found to be negative. ALLERGIES: TO CIPRO, OPIOIDS, AND MEPERIDINE. REVIEW OF SYSTEMS: All systems reviewed, except the above mentioned, found to be negative. PHYSICAL EXAMINATION: GENERAL: Awake, alert, oriented, does not appear in distress. VITAL SIGNS: Her blood pressure is 131/75, pulse is 72, temperature is 98.7, saturating 98% on room air. HEENT: Head is nontraumatic, normocephalic. Pupils equal, reactive. Extraocular movements are intact. Nonicteric sclerae. Well injected conjunctivae. Oral mucosa normal. Nasal mucosa normal. NECK: Supple. No adenopathy. No murmur. Thyroid is not palpable. Trachea is midline. No supraclavicular adenopathy. HEART: S1, S2, regular. Systolic murmur is heard. No displacement of PMI. LUNGS: Clear to auscultation bilaterally. No wheezes. No rhonchi. No crackles. ABDOMEN: Bowel sounds are positive. Nontender abdomen. No hepatosplenomegaly. EXTREMITIES: No lower extremity edema. No cyanosis SKIN: Examination of her left buttock reveals redness and it is warm and hard to touch. The area is erythematous. NEURO: Cranial nerve 2 through 12 within normal limits. Normal motor function. Normal sensory function and reflexes. LABORATORY DATA: Blood work shows sodium 132, potassium 3.7, BUN 38, creatinine 2.81. Her baseline is around 1.43. Her CK is 5000, previously 6150. CRP 31.52. Urinalysis shows wbc's and small leukocyte esterase, but negative nitrites. COVID-[address] of the abdomen and pelvis preliminary read did not show any abscess. It showed thickening of the skin and phlegmon formation. We are awaiting an official radiological read. ASSESSMENT AND PLAN: This is a 60-year-old female patient who is presenting with extensive cellulitis of her left buttock and possible urinary tract infection, found to have worsening kidney function and rhabdomyolysis, worsened by the fact that she has been having poor oral intake for the past couple of weeks. She is also apparently homeless, in the ER at some point, she became hypotensive, required to be on Levophed. Currently, she is off that medication. A central line was placed. Her INR was 10. There was some oozing of blood around the point of insertion of the central line. She was given Kcentra but currently her INR is 1.7. Since she does have a metallic valve, she is receiving a dose of Lovenox. Infectious Disease: The patient will be admitted to the IMCU, will be started on Zosyn and vancomycin. She already received cefepime and vancomycin. This will be to cover her cellulitis and her urinary tract infection. Awaiting the official results of the CT of the abdomen and pelvis. It does not seem that she has a drainable abscess, to consult Surgery yet. Renal system, electrolytes: The patient has worsening of her kidney function. She does have a transplanted kidney. We will resume her anti-rejection medications. She will be on IV fluids. We will recheck her CK level after hydration. Cardiac: The patient has a metallic aortic valve. We need to keep the INR between 2 and 3. We will resume her Coumadin. She did receive a dose of Lovenox, which should cover her for 24 hours and then we will adjust the Coumadin as per her INR. Endocrinology: The patient has history of hypothyroidism. We will continue with Synthroid. One hour of critical care time was spent to manage the patient. Job ID: [id number]
--- NOTE | 2020-10-24 08:10 | CT ---
CT OF THE ABDOMEN AND PELVIS WITHOUT CONTRAST: INDICATION: A 68-year-old female with left buttock pain. COMPARISON: None. FINDINGS: Respiratory motion artifact and patient motion artifact limits image detail. There are prominent mitral annular calcifications. Unopacified liver is unremarkable appearing. There is layered debris within the gallbladder. Both kidneys are atrophic. There is an exophytic 2 cm cyst off the lateral margin of the right kidne y. No hydronephrosis is evident. Unopacified pancreas, spleen, and right adrenal gland are normal-appearing. There is a 1.6 cm nodule involving the left adrenal gland that is incompletely characterized. There is a normal appendix in the right lower quadrant. There is scattered diverticula involving the colon without evidence of active diverticulitis. No definite drainable fluid collection is evident. There is a left lower quadrant transplant kidney. No hydronephrosis is evident. There is a Castro ca theter in a partially decompressed bladder. Rectum and perirectal soft tissues are unremarkable-appe aring. No definite acute osseous abnormality is evident. Edematous change is seen along the left aspect of the anus which may reflect phlegmon or potentially a developing perianal fistula. No definite gas filled tract is grossly evident on current images. IMPRESSION: 1. Soft tissue and fluid density seen adjacent to the left aspect of the anus extending into the lef t gluteal subcutaneous fat may reflect developing left perianal fistula or perianal phlegmon. 2. Layered debris within the gallbladder may reflect gallbladder sludge or small stones. 3. Atrophic kidneys with right renal cyst. 4. Left adrenal nodule incompletely characterized. Followup MRI of the abdomen may be helpful for f urther characterization. 5. Colonic diverticulosis. 6. Left lower quadrant transplant kidney. POS:
[2020-10-24 08:12] LABS: Hemoglobin 8.8 g/dL (12.0-16.0); Mean Corpuscular HGB CONC 31.6 g/dL (32.0-36.0); Mean Corpuscular Hemoglobin 26.4 pg (27.0-31.0); Mean Corpuscular Volume 83.5 fL (78.0-98.0); Mean Platelet Volume 10.4 fL (7.4-10.4); Platelet Count 251 thou/uL (130-400); RBC Distribution Width 16.7 % (11.5-14.5); Red Blood Cell (RBC) Count 3.32 mill/uL (4.20-5.40); White Blood Cell (WBC) Count 10.3 thou/uL (4.8-10.8)
[2020-10-24 08:16] LABS: INR-International Normal Ratio 2.6; Prothrombin Time 28.4 sec (12.0-14.7)
[2020-10-24 08:31] LABS: ALT (SGPT) 142 U/L (8-55); AST (SGOT) 217 U/L (5-34); Albumin 2.5 g/dL (3.5-5.0); Alkaline Phosphatase 59 U/L (40-110); Anion Gap 14 mmol/L (10-20); BUN (Urea Nitrogen) 34 mg/dL (9.8-20.1); Calc. Creatinine Clearance 22 mL/min (70-130); Calcium 8.1 mg/dL (7.8-10.44); Carbon Dioxide 16 mmol/L (22-29); Chloride 106 mmol/L (98-107); Globulin 2.7 g/dL (2.4-3.5); Potassium 4.1 mmol/L (3.5-5.1); Protein, Total 5.2 g/dL (6.0-8.3); Sodium 132 mmol/L (136-145)
[2020-10-24 08:34] LABS: Band 13 % (5-11); Lymphocytes 10 % (21-51); MDiff Complete? YES; Monocytes 3 % (0-10); Neutrophil 74 % (42-75); Platelet Morphology Comment Appears Adequate; Polychromasia SLIGHT = 2-3 cells (100X) (0-2/hpf)
[2020-10-24 08:36] LABS: Glucose 59 mg/dL (70-105)
[2020-10-24 08:44] LABS: CK (CPK) 4501 U/L (29-168)
[2020-10-24] MEDS: predniSONE 5 MG TAB PO SCH (09:46)
[2020-10-24] MEDS: cycloSPORINE, Modified 25 MG CAP PO SCH ×2 (09:47→20:35)
[2020-10-24] MEDS: Mycophenolate 250 MG CAP PO SCH ×2 (09:48→20:35)
[2020-10-24] MEDS: Piperacillin/Tazobactam 2.25 GM in Sodium Chloride 0.9% 100 ML IVPB SCH ×2 (09:48→18:00)
[2020-10-24] MEDS: cycloSPORINE, Modified 100 MG CAP PO SCH ×2 (09:48→20:35)
[2020-10-24] MEDS ORDERED: Fentanyl 100 MCG/2 ML VIAL ONE (10:42)
[2020-10-24] MEDS ORDERED: Midazolam HCl 2 mg/2 ml Vial SLOW IVP SCH (10:42)
[2020-10-24] MEDS ORDERED: Midazolam HCl 2 mg/2 ml Vial ONE (10:42)
[2020-10-24] MEDS ORDERED: Fentanyl 100 MCG/2 ML VIAL SLOW IVP SCH ×2 (10:45→11:45)
--- NOTE | 2020-10-24 11:10 | CON ---
DATE OF CONSULTATION: HISTORY OF PRESENT ILLNESS: Didi Cherry is a 60-year-old female from [place], who presented to the ER with dark urine. 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 She sees most of her physicians at [place] and [place] here locally. Then additionally, she complained of some pain in the gluteal area. There is some drainage. She also has history of hemorrhoids. She came in here hypotensive, though when reviewing the notes in the ER, respirations 18, pulse 78, saturations 100% on room air, temperature is 98, and blood pressure was 134/75. Though, she did complain of significant pain, she has since been on Levophed, is off it in the ICU, she is awake, alert, responsive. PAST MEDICAL HISTORY: Hypothyroidism, high cholesterol, renal failure. PAST SURGICAL HISTORY: Coronary artery bypass surgery done in [place], renal transplant, bilateral nephrectomy, aortic prosthetic valve, , ankle surgery. SOCIAL HISTORY: No recent alcohol or tobacco abuse. HOME MEDICATIONS: Include; 1. Prednisone 5. 2. Cyclosporine 25 and 10. 3. Coumadin 7.5. 4. Protonix 40. 5. CellCept 100 b.i.d. 6. Metoprolol 50. 7. Synthroid 75. 8. Ismo 60. 9. Hydrochlorothiazide 12.5. 10. Prozac 20. 11. Tylenol. She is now started on; 1. Synthroid. 2. Zosyn. 3. Vancomycin. 4. Prednisone. ALLERGIES: CIPRO, CODEINE, OPIATES. REVIEW OF SYSTEMS: Otherwise 10-point negative. PHYSICAL EXAMINATION: GENERAL: She is awake, alert, responsive, in no distress. VITAL SIGNS: Blood pressure 140/80, pulse saturations 100%. CHEST: No wheezing. No crackles. CARDIAC: Normal S1 and S2. No gallops. ABDOMEN: No masses. LABORATORY DATA: Show white count 10,000, platelet count is normal, H and H . INR is 2.6. Creatinine 2, BUN 37. Coronavirus test was negative. X-ray was clear. CT abdomen is noted, shows evidence of soft tissue density in the left gluteal area. ASSESSMENT AND PLAN: Left gluteal abscess; chronic renal failure, status post transplant; coronary artery disease; status post aortic valve surgery; long-term anticoagulation. Pulmonary jones, she is on adequate antibiotic. Await cultures. She is seen by General Surgery. Further recommendation thereafter. We will continue to observe while she is in the ICU. Consultation note 70 minutes, 50% direct patient care. Job ID: [id number]
--- NOTE | 2020-10-24 11:41 | PDOC.BPN ---
- Brief Progress Note [id number] Progress note dictated
--- NOTE | 2020-10-24 12:23 | PRG ---
DATE OF SERVICE: 10/24/2020 SUBJECTIVE: The patient is awake, in mild distress. No new complaints. The patient was admitted with sepsis/septic shock, initially required Levophed, currently she is off Levophed. The patient was found to have cellulitis/abscess of the left buttock/urinary tract infection. Also, the patient was found to have worsening of her kidney function and rhabdomyolysis. Initially, the patient was placed on Levophed, she is weaned off. The patient also was found to be in rhabdo. She was given IV fluids. Central line was placed. Also, she was found to be coagulopathic with INR of 10. The patient received Kcentra. PHYSICAL EXAMINATION: VITAL SIGNS: Blood pressure is 90/50. Pulse is 68, respiratory rate is 18, and oxygen saturation is 96%. GENERAL: Awake, alert, not in acute distress. HEAD AND NECK: Normocephalic and atraumatic. NECK: Supple. CHEST: Fair bilateral air entry. HEART: S1, S2. Regular. Systolic murmur is heard. ABDOMEN: Soft, nontender. NEUROLOGIC: She is awake, alert, oriented. SKIN: There is redness and warmth to the left buttock. LABORATORY DATA: Today, WBC 13, hemoglobin 8.5, platelets 263. Sodium is 137, potassium 3.7, BUN is 37, creatinine is 2.7, glucose 61. Latest INR is 2.3. ASSESSMENT: 1. Septic shock. 2. Cellulitis/abscess of the left buttock. 3. Coagulopathy. The patient received Kcentra. 4. Acute on chronic renal failure. 5. Anxiety and depression. 6. History of kidney transplant. 7. Immunosuppressed status. 8. History of mechanical aortic valve replacement. 9. On chronic anticoagulation. PLAN: 1. Continue with broad-spectrum antibiotics. 2. Surgeon was consulted for possible drainage. 3. Continue with IV fluids. 4. May need to be restarted back on vasopressors if her MAP is less than 65. 5. We will restart the patient on anticoagulation. The patient has a mechanical valve. 6. Continue with antirejection therapy. Job ID: [id number]
--- NOTE | 2020-10-24 16:19 | CON ---
DATE OF CONSULTATION: 10/24/2020 The patient was evaluated and discussed with Dr. Silverio, who agrees with the plan as stated below. HISTORY OF PRESENT ILLNESS: This is a 60-year-old female who presented to [place] ER complaining of left buttock pain. Per chart review, she described a pimple that she popped and drained pus. On evaluation, she had a boil that was approximately 9 x 7 cm at the medial portion of her left glute. The patient is endorsing left buttock pain on palpation. There is also some left labial swelling and erythema, although this does not appear to be tender to palpation. PAST MEDICAL HISTORY: 1. GI bleed. 2. Hypothyroidism. 3. HTN. 4. Hiatal hernia. 5. Mechanical aortic valve replacement. 6. GERD. 7. High cholesterol. 8. CKD, stage 4, S/P renal transplant. 9. Anxiety. 10. Depression. SOCIAL HISTORY: She does not smoke, although she used to smoke half a pack per day for many years. She denies alcohol consumption. ALLERGIES: SHE STATES OPIOIDS MAKE HER "VERY, VERY SICK." PER CHART REVIEW, SHE ALSO HAS AN ALLERGY TO CIPROFLOXACIN AND MEPERIDINE. REVIEW OF SYSTEMS: As described in the HPI. PHYSICAL EXAMINATION: GENERAL APPEARANCE: The patient is awake, alert, and in no acute distress. HEENT: EOM grossly intact. NECK: Supple with grossly normal range of motion. RESPIRATORY: No respiratory distress. Equal rise and fall of chest. CARDIOVASCULAR: Regular rate and rhythm. BUTTOCKS: There is a 9 x 7 cm erythematous, indurated area with a small 1 x 1 cm purulent opening. She has copious external hemorrhoids, but they do not appear to be involved in the boil. GENITOURINARY: Her left labia majora is mildly erythematous and edematous. It is not indurated, fluctuant, or tender to palpation. EXTREMITIES: She is able to move all 4 extremities equally with grossly normal strength. ASSESSMENT: Abscess of the left gluteal cleft. PLAN: The plan is to ulises and drain this boil at the bedside. General Surgery will follow for this. Management of her other medical problems will be done by her primary team. Job ID: [id number] [facility]
[2020-10-24] MEDS ORDERED: Warfarin Sodium 3 MG TAB PO SCH (17:00)
[2020-10-24 17:41] LABS: Bacteria/HPF None Seen HPF (None Seen); Bilirubin Negative (Negative); Blood, Urine 2+ (Negative); Clarity Clear (Clear); Glucose, Urine (Dipstick) Normal (Negative); Ketone, Urine Negative (Negative); Leukocyte Negative Leu/uL (Negative); Nitrite Negative (Negative); Protein, Urine (Dipstick) 20 mg/dL (Neg-Trace); RBC/HPF 0-3 HPF (0-3); Specific Gravity, Urine 1.011 (1.002-1.036); Squamous Epithelial None Seen HPF (0-3); Urobilinogen Normal mg/dL (Less than 2); WBC/HPF 0-3 HPF (0-3); pH, Urine 5.5 (5.0-9.0)
[2020-10-24 17:42] LABS: Anion Gap 12 mmol/L (10-20); BUN (Urea Nitrogen) 30 mg/dL (9.8-20.1); CK (CPK) 3092 U/L (29-168); Calc. Creatinine Clearance 24 mL/min (70-130); Carbon Dioxide 18 mmol/L (22-29); Chloride 106 mmol/L (98-107); Glucose 99 mg/dL (70-105); Potassium 3.9 mmol/L (3.5-5.1); Sodium 132 mmol/L (136-145)
[2020-10-24 17:43] LABS: Urine Culture Reflex No No
[2020-10-24] MEDS: Sodium Bicarbonate 150 MEQ in Dextrose 5% in Water 1,000 ML IV SCH (18:01)
[2020-10-24 18:27] LABS: Creatinine, Urine 42.03 mg/dL (47-110)
--- NOTE | 2020-10-24 18:57 | CON ---
DATE OF CONSULTATION: 10/24/2020 SERVICE: Nephrology. REASON FOR CONSULTATION: Acute renal failure. REQUESTING PROVIDER: Dr. Mancini. HISTORY OF PRESENT ILLNESS: A 60-year-old female with known history of end-stage renal disease, status post renal transplant in 1996; valvular heart disease, status post mechanical aortic valve replacement, on chronic anticoagulation; amongst others; who was admitted due to acute renal failure and septic shock as well as left buttock abscess. The patient reportedly developed urine for several days, for which she presented to [facility] on October 23. She also reported a left gluteal area swelling and pain. The patient was evaluated and found to have elevated CK level above 6000 and also elevated creatinine, hence diagnosis of rhabdomyolysis was made and the patient was started on IV fluid. While in the ER, the patient developed hypotension, which did not improve with IV fluid, hence was started on Levophed and subsequently transferred to the emergency room here in [facility] from where she was admitted to the ICU. The patient has been seen by General Surgery and she is status post incision and drainage of the left gluteal abscess at the bedside. She also reported being weak for some time as well as poor oral intake, but denied fever. Several days prior to presentation to the emergency room, she reportedly developed a pimple on the left buttocks, which she squeezed. The patient also was found to have supratherapeutic INR of 10, for which she received vitamin K and Kcentra. Hemodynamics has improved and the patient is currently off Levophed. The patient also was found to have worsening acidosis with CO2 of 16, hence Nephrology consult. She reports being weak, but denied hematemesis, vomiting, change in bowel habit, or dysuria. She also denied change in medications and has been taking all her medications up until yesterday. PAST MEDICAL HISTORY: 1. 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 2. CKD stage 4 of transplanted kidney. 3. Status post bilateral nephrectomies. 4. Hyperlipidemia. 5. Aortic valve dysfunction, status post mechanical aortic valve replacement, on anticoagulation. 6. Chronic anticoagulation with Coumadin. 7. High blood pressure. 8. Hypothyroidism. 9. Prior history of GI bleeding. 10. Gastroesophageal reflux disease. 11. Anxiety and depression. 12. Coronary artery disease. PAST SURGICAL HISTORY: 1. Bilateral nephrectomy. 2. Mechanical aortic valve replacement. 3. EGD. 4. Bilateral nephrectomies. 5. . 6. Peripheral angiography with stent placement. 7. Right ankle open reduction and internal fixation. FAMILY HISTORY: Reviewed, but noncontributory. SOCIAL HISTORY: Lives with family. Denied alcohol or recreational drug use or smoking. ALLERGIES: REPORTED ALLERGIC AND ADVERSE REACTION TO THE FOLLOWING; 1. CIPRO. 2. OPIOIDS. 3. MEPERIDINE. HOME MEDICATIONS: 1. CellCept 1000 mg p.o. b.i.d. 2. Amiodarone 200 mg p.o. daily. 3. Cyclosporine 125 mg p.o. b.i.d. 4. Fenofibrate 67 mg p.o. daily. 5. Isosorbide mononitrate 60 mg p.o. daily. 6. Warfarin 3 mg daily except on and Saturdays when the patient takes 4.5. 7. Levothyroxine 75 mcg p.o. daily. 8. Lexapro 10 mg p.o. daily. 9. Lipitor 40 mg p.o. daily. 10. Metoprolol and hydrochlorothiazide 1 tablet daily. 11. Omeprazole 20 mg p.o. daily. 12. Prednisone 5 mg p.o. daily. 13. Trazodone 50 mg p.o. daily. REVIEW OF SYSTEMS: 12-point review of system performed was negative other than pertinent positives and negatives included in the history of present illness. PHYSICAL EXAMINATION: VITAL SIGNS: Temperature 100 degrees Fahrenheit, pulse 69, respiratory rate 21, blood pressure 110/54, SpO2 of 98% on room air. GENERAL: Elderly looking female, in no obvious distress. Fatigued, but afebrile and anicteric. HEENT: Normocephalic and atraumatic. Oral mucosa is mildly dry. NECK: Supple with no JVD. CARDIOVASCULAR: Regular rhythm and rate with normal heart sounds. noted as well as systolic murmur. RESPIRATORY: Good air entry bilaterally with no obvious crackle or rhonchi or use of accessory muscles. GI: Full, soft, nontender, nondistended with normal bowel sounds. MUSCULOSKELETAL: Dressing on left gluteal area with some erythema noted. No edema of the extremities other than left gluteal area noted. COM[employer]ED [employer]: Conscious, alert, oriented x3 with appropriate mental status. Cranial nerves 2 through 12 are grossly intact. LABORATORY DATA: CBC today showed WBC count of 10.3, hemoglobin of 8.8, MCV of 83.7, platelet of 251. On presentation yesterday on October 23, 2020; WBC was 13.1, hemoglobin 10.8, and platelet 278. Coagulation panel on presentation yesterday, October 23, 2020; showed PT 88.1, INR 10.9, PTT 169.2. PT/INR earlier today at 7:58 a.m. showed PTT 28.4, INR 2.6. Chemistry: Most recent BMP earlier this morning showed sodium 132, potassium 4.1, chloride 106, CO2 of 16, BUN 34, creatinine 2.52, glucose 59, calcium 8.1, total bilirubin 1.0, AST 217, ALT 142, alkaline phosphatase 59, total protein 5.2, albumin 2.5. CK earlier today was 4500. On presentation, however, on October 22, sodium was 129, potassium 4.1, CO2 of 22, chloride 94, BUN 48, creatinine 3.69, glucose 125, calcium 9.4 total bilirubin 1.2, AST 265, ALT 164, alkaline phosphatase 77, total protein 6.2, albumin 3.0. Initial cardiac markers showed CK 6150 with troponin of 0.053. Urinalysis performed on October 23, 2020, showed yellow, slightly cloudy urine with pH of 5.0, specific gravity of 1.015. Positive protein, blood, and bilirubin as well as leukocyte esterase. Glucose, ketone, nitrite were negative. Microscopy showed 4 to 6 rbc and 7 to 10 wbc. IMAGING STUDIES: CT scan of the abdomen and pelvis performed on October 23 showed soft tissue and fluid density seen adjacent to the left aspect of the anus extending to the left gluteal subcutaneous fat, which may reflect developing perianal fistula or perianal abscess. Layered debris within the gallbladder also was noted, which may reflect gallbladder sludge of small stone. Atrophic kidneys with right renal cyst, left adrenal nodule, as well as colonic diverticulosis and left lower quadrant transplanted kidney were noted. ASSESSMENT: 1. Acute kidney injury: Most likely due to hemodynamic factors related to severe dehydration and rhabdomyolysis. The patient admitted to poor oral intake for several days and decreased urine, which is grossly concentrated, was found to have elevated CK and hypotension. Creatinine is trending down with IV fluid therapy. 2. Chronic kidney disease stage 4 of transplanted kidney. 3. End-stage renal disease, status post renal transplant in 1996. 4. Rhabdomyolysis: Due to acute dehydration in the patient predisposed due to medications. The patient is on amiodarone, fenofibrate, Lipitor, cyclosporine, which are predisposed to rhabdomyolysis. 5. Septic shock: Related to left gluteal abscess. Improved with IV fluid, on pressors. Currently off pressors. 6. Severe metabolic acidosis: Due to acute kidney injury and use of normal saline therapy. 7. Supratherapeutic INR related to Coumadin therapy. 8. Hyponatremia: Due to volume depletion with appropriate ADH secretion. PLAN: 1. We will get repeat BMP and CK level. We will also get urine electrolytes as well as urine protein creatinine ratio. 2. We will discontinue normal saline and start sodium bicarbonate infusion in view of worsening metabolic acidosis. 3. We will continue immunosuppressive therapy. 4. We will plan to get a cyclosporine level. 5. We will monitor electrolytes. Further treatment to follow depending on hospital course. Avoid nephrotoxic agent. Renally dose all medications. We will get medical record from [facility] to get the patient's recent baseline of creatinine. Many thanks for involving us in the care of this patient. We will follow along with you. Job ID: [id number]
[2020-10-24] MEDS: traZODone HCl 50 MG TAB PO SCH (20:35)
--- NOTE | 2020-10-24 21:35 | OP ---
DATE OF PROCEDURE: 10/24/2020 PREOPERATIVE DIAGNOSES: 4 x 3 cm Left perianal/gluteal abscess. POSTOPERATIVE DIAGNOSES: 4 x 3 cm Left perianal/gluteal abscess. PROCEDURES PERFORMED: Incision and drainage of 4 x 3 cm left perianal/gluteal abscess. ANESTHESIA: Conscious sedation. INDICATIONS FOR PROCEDURE: This is a 60-year-old woman, admitted on 10/23/2020 with septicemia. She was found with left perianal/gluteal abscess, for which I was asked to evaluate the patient. Decision was made to incise and drain this abscess. DESCRIPTION OF PROCEDURE: Verbal informed consent was obtained from the patient, who was placed in the left lateral recumbent position. She was given midazolam 1 mg followed by fentanyl 50 mcg. The left gluteal/perianal area were prepped in the usual fashion. I used an 11 scalpel to incise the dome of this abscess in a crucifix fashion. I then used curved hemostat to enter the abscess cavity. The cultures were taken. Necrotic core debris were evacuated using sterile suction catheter tip. The wound bed was then packed with quarter-inch iodoform gauze and mesh pants applied. The patient tolerated the procedure without any apparent complication and remains hemodynamically stable following completion of the procedure. Job ID: [id number] [facility]
[2020-10-25] MEDS: Piperacillin/Tazobactam 2.25 GM in Sodium Chloride 0.9% 100 ML IVPB SCH ×3 (01:09→16:58)
[2020-10-25 01:30] LABS: Vancomycin, Random 15.1 ug/mL (See Comment)
[2020-10-25] MEDS: Sodium Bicarbonate 150 MEQ in Dextrose 5% in Water 1,000 ML IV SCH (01:58)
[2020-10-25] MEDS ORDERED: Vancomycin 1 GM in Premix Bag 1 BAG IVPB SCH ×2 (02:00→02:15)
[2020-10-25 04:48] LABS: Prothrombin Time 42.7 sec (12.0-14.7)
[2020-10-25 04:50] LABS: INR-International Normal Ratio 4.4
[2020-10-25 04:55] LABS: ALT (SGPT) 115 U/L (8-55); AST (SGOT) 128 U/L (5-34); Albumin 2.2 g/dL (3.5-5.0); Alkaline Phosphatase 56 U/L (40-110); Anion Gap 14 mmol/L (10-20); BUN (Urea Nitrogen) 27 mg/dL (9.8-20.1); CK (CPK) 2058 U/L (29-168); Calc. Creatinine Clearance 27 mL/min (70-130); Calcium 7.8 mg/dL (7.8-10.44); Carbon Dioxide 23 mmol/L (22-29); Chloride 102 mmol/L (98-107); Globulin 2.4 g/dL (2.4-3.5); Glucose 116 mg/dL (70-105); Potassium 3.3 mmol/L (3.5-5.1); Protein, Total 4.6 g/dL (6.0-8.3); Sodium 136 mmol/L (136-145)
[2020-10-25 05:08] LABS: Hemoglobin 7.2 g/dL (12.0-16.0); Mean Corpuscular HGB CONC 31.5 g/dL (32.0-36.0); Mean Corpuscular Hemoglobin 26.8 pg (27.0-31.0); Mean Corpuscular Volume 84.9 fL (78.0-98.0); Platelet Count 156 thou/uL (130-400); RBC Distribution Width 16.9 % (11.5-14.5); Red Blood Cell (RBC) Count 2.69 mill/uL (4.20-5.40); White Blood Cell (WBC) Count 7.5 thou/uL (4.8-10.8)
[2020-10-25 05:33] LABS: #Eosinphils 0.1 thou/uL (0.0-0.7); #Lymphocytes 1.1 thou/uL (1.20-3.40); #Monocytes 0.5 thou/uL (0.11-0.59); #Neutrophils 5.8 thou/uL (1.40-6.50); %Basophils 0.3 % (0.0-1.0); %Eosinophils 1.1 % (0.0-10.0); %Lymphocytes 14.4 % (21.0-51.0); %Monocytes 6.8 % (0.0-10.0); %Neutrophils 77.4 % (42.0-75.0); MDiff Complete? YES; Platelet Clumps MODERATE; Platelet Morphology Comment PLT clumps seen-ADEQ
[2020-10-25] MEDS ORDERED: Sodium Bicarbonate 150 MEQ in Dextrose 5% in Water 1,000 ML IV SCH (05:43)
[2020-10-25] MEDS ORDERED: Potassium Chloride 20 MEQ TAB PO SCH (05:45)
[2020-10-25] MEDS: Levothyroxine Sodium 75 MCG TAB PO SCH (06:11)
--- NOTE | 2020-10-25 08:52 | PRG ---
DATE OF SERVICE: 10/25/2020 SUBJECTIVE: This morning, she is awake, alert, and responsive. No pain. No shortness of breath. HISTORY OF PRESENT ILLNESS: VITAL SIGNS: Temperature 99, pulse 69, sats 100% on room air, blood pressure 130/73. CHEST: No wheezing. No crackles. CARDIAC: Normal S1 and S2. No gallops. ABDOMEN: No masses. LABORATORY DATA: White count 7000, hemoglobin and hematocrit 7 and 22, and platelet count is normal. Creatinine is 2 and BUN 27. INR is 4. ASSESSMENT: 1. Gluteal abscess. So far, all cultures are negative. 2. Chronic renal failure, renal transplant. PLAN: 1. Await cultures. 2. Coumadin has been decreased to a milligram a day, try and keep the INR between 2 and 3. 3. We will continue to follow while in the ICU. 4. Otherwise PT and supportive care. Job ID: [id number]
[2020-10-25] MEDS: predniSONE 5 MG TAB PO SCH (09:33)
[2020-10-25] MEDS: cycloSPORINE, Modified 25 MG CAP PO SCH ×2 (09:33→19:41)
[2020-10-25] MEDS: cycloSPORINE, Modified 100 MG CAP PO SCH ×2 (09:33→19:41)
[2020-10-25] MEDS: Mycophenolate 250 MG CAP PO SCH ×2 (09:37→19:41)
--- NOTE | 2020-10-25 10:58 | PDOC.NEPPN ---
- Subjective Encounter Date: 10/25/20 Subjective: Seen and examined. Feeling better. Making more urine. Remained afebrile. - Objective Vital Signs & Weight: Vital Signs (12 hours) Temp Pulse Resp BP Pulse Ox 10/25/20 08:00 98.4 F 67 15 133/73 100 10/25/20 04:00 98.4 F 10/25/20 00:00 98.6 F Weight Weight 131 lb 13.383 oz Most Recent Monitor Data Heart Rate from ECG 66 NIBP 138/75 NIBP BP-Mean 96 Respiration from ECG 0 SpO2 100 I&O: 10/24/20 10/25/20 10/26/20 06:59 06:59 06:59 Intake Total 4855 960 Output Total 600 2125 400 Balance -600 2730 560 Result Diagrams: 10/25/20 04:01 10/25/20 04:01 Nephrology ROS - Medication Medications: Active Medications Generic Name Dose Route Start Last Admin Trade Name Freq PRN Reason Stop Dose Admin Cyclosporine 100 mg 10/24/20 09:00 10/25/20 09:33 Cyclosporine, Modified 100 Mg Cap PO 100 mg BID JANELLE Administration Cyclosporine 25 mg 10/24/20 09:00 10/25/20 09:33 Cyclosporine, Modified 25 Mg Cap PO 25 mg BID JANELLE Administration Piperacillin Sod/Tazobactam 100 mls @ 200 mls/hr 10/24/20 10:00 10/25/20 09:32 Sod 2.25 gm/ Sodium Chloride IVPB 100 mls 0200,1000,1800 JANELLE Administration Levothyroxine Sodium 75 mcg 10/24/20 06:00 10/25/20 06:11 Levothyroxine Sodium 75 Mcg Tab PO 75 mcg 0600 JANELLE Administration Mycophenolate Mofetil 1,000 mg 10/24/20 09:00 10/25/20 09:37 Mycophenolate 250 Mg Cap PO 1,000 mg BID JANELLE Administration Pantoprazole Sodium 40 mg 10/25/20 09:00 10/25/20 09:32 Pantoprazole 40 Mg Tab PO 40 mg DAILY JANELLE Administration Prednisone 5 mg 10/24/20 08:00 10/25/20 09:33 Prednisone 5 Mg Tab PO 5 mg QAM-WM JANELLE Administration Trazodone HCl 50 mg 10/24/20 21:00 10/24/20 20:35 Trazodone Hcl 50 Mg Tab PO 50 mg HS JANELLE Administration - Exam General Appearance: awake alert Eye: anicteric sclera ENT: normocephalic atraumatic, moist mucosa Neck: supple, symmetric, no JVD Respiratory: no wheezes, no rales, no ronchi, normal chest expansion Cardiovascular: RRR, murmur present Gastrointestinal: soft, non-tender, non-distended, normal bowel sounds Extremities: no edema Neurological: CN's grossly intact, no focal deficits PSYCH: A&O x 3 Nephrology Results - Labs Result Diagrams: 10/25/20 04:01 10/25/20 04:01 Lab results: WBC 7.5 thou/uL (4.8-10.8) 10/25/20 04:01 Hgb 7.2 g/dL (12.0-16.0) L 10/25/20 04:01 Hct 22.9 % (36.0-47.0) L 10/25/20 04:01 MCV 84.9 fL (78.0-98.0) 10/25/20 04:01 Plt Count 156 thou/uL (130-400) 10/25/20 04:01 Neutrophils % 77.4 % (42.0-75.0) H 10/25/20 04:01 Band Neuts % (Manual) 13 % (5-11) H 10/24/20 07:58 Sodium 136 mmol/L (136-145) 10/25/20 04:01 Potassium 3.3 mmol/L (3.5-5.1) L 10/25/20 04:01 Chloride 102 mmol/L (98-107) 10/25/20 04:01 Carbon Dioxide 23 mmol/L (22-29) 10/25/20 04:01 BUN 27 mg/dL (9.8-20.1) H 10/25/20 04:01 Creatinine 2.03 mg/dL (0.6-1.1) H 10/25/20 04:01 Glucose 116 mg/dL (70-105) H 10/25/20 04:01 Lactic Acid 0.6 mmol/L (0.5-2.2) 10/23/20 23:45 Calcium 7.8 mg/dL (7.8-10.44) 10/25/20 04:01 Total Bilirubin 1.0 mg/dL (0.2-1.2) 10/25/20 04:01 AST 128 U/L (5-34) H 10/25/20 04:01 ALT 115 U/L (8-55) H 10/25/20 04:01 Alkaline Phosphatase 56 U/L (40-110) 10/25/20 04:01 Creatine Kinase 2058 U/L (29-168) H 10/25/20 04:01 Serum Total Protein 4.6 g/dL (6.0-8.3) L 10/25/20 04:01 Albumin 2.2 g/dL (3.5-5.0) L 10/25/20 04:01 Urine Ketones Negative mg/dL (Negative) 10/24/20 Unknown Urine Blood 2+ (Negative) A 10/24/20 Unknown Urine Nitrite Negative (Negative) 10/24/20 Unknown Ur Leukocyte Esterase Negative Stephania/uL (Negative) 10/24/20 Unknown Urine RBC 0-3 HPF (0-3) 10/24/20 Unknown Urine WBC 0-3 HPF (0-3) 10/24/20 Unknown Ur Squamous Epith Cells None Seen HPF (0-3) 10/24/20 Unknown Urine Bacteria None Seen HPF (None Seen) 10/24/20 Unknown Sodium 136 mmol/L (136-145) 10/25/20 04:01 Potassium 3.3 mmol/L (3.5-5.1) L 10/25/20 04:01 Chloride 102 mmol/L (98-107) 10/25/20 04:01 Carbon Dioxide 23 mmol/L (22-29) 10/25/20 04:01 Anion Gap 14 mmol/L (10-20) 10/25/20 04:01 BUN 27 mg/dL (9.8-20.1) H 10/25/20 04:01 Creatinine 2.03 mg/dL (0.6-1.1) H 10/25/20 04:01 Glucose 116 mg/dL (70-105) H 10/25/20 04:01 Calcium 7.8 mg/dL (7.8-10.44) 10/25/20 04:01 Albumin 2.2 g/dL (3.5-5.0) L 10/25/20 04:01 Nephrology AP PN - Plan ASSESSMENT: Acute kidney injury: Due to hemodynamic factors related to severe dehydration and rhabdomyolysis. Creatinine is trending down with IV fluid therapy towards baseline Rhabdomyolysis: Due to acute dehydration in the patient predisposed due to medications. The patient is on amiodarone, fenofibrate, Lipitor, cyclosporine, which are predisposed to rhabdomyolysis. CK is trending down. Hyponatremia: Due to volume depletion with appropriate ADH secretion. Resolved. Hypokalemia Chronic kidney disease stage 4 of transplanted kidney. End-stage renal disease, status post renal transplant in 1996. Septic shock: Related to left gluteal abscess. Resolved with IV fluid and pressors. Currently off pressors. Severe metabolic acidosis: Due to acute kidney injury and use of normal saline therapy. Supratherapeutic INR related to Coumadin therapy. PLAN Substitute sodium bicarbonate with LR. Replete serum potassium. Avoid nephrotoxic agents. Hold lipitor and fenofibrate. Continue current immunosuppressive therapy.
[2020-10-25] MEDS: Lactated Ringer's 1,000 ML IV SCH ×2 (14:04→19:40)
--- NOTE | 2020-10-25 14:47 | PDOC.HOSPP ---
- Subjective Encounter Date: 10/25/20 Encounter Time: 09:20 Subjective: feels better, no sob, slept well last night no abd pain or nausea - Objective Vital Signs & Weight: Vital Signs (12 hours) Temp Pulse Resp BP Pulse Ox 10/25/20 12:00 98.9 F 10/25/20 08:00 98.4 F 67 15 133/73 100 10/25/20 04:00 98.4 F Weight Weight 131 lb 13.383 oz Most Recent Monitor Data Heart Rate from ECG 65 NIBP 112/61 NIBP BP-Mean 78 Respiration from ECG 1 SpO2 100 I&O: 10/24/20 10/25/20 10/26/20 06:59 06:59 06:59 Intake Total 4855 2406 Output Total 600 2125 700 Balance -600 2730 1706 Result Diagrams: 10/25/20 04:01 10/25/20 04:01 Hospitalist ROS - Medication Medications: Active Medications Generic Name Dose Route Start Last Admin Trade Name Freq PRN Reason Stop Dose Admin Cyclosporine 100 mg 10/24/20 09:00 10/25/20 09:33 Cyclosporine, Modified 100 Mg Cap PO 100 mg BID JANELLE Administration Cyclosporine 25 mg 10/24/20 09:00 10/25/20 09:33 Cyclosporine, Modified 25 Mg Cap PO 25 mg BID JANELLE Administration Piperacillin Sod/Tazobactam 100 mls @ 200 mls/hr 10/24/20 10:00 10/25/20 09:32 Sod 2.25 gm/ Sodium Chloride IVPB 100 mls 0200,1000,1800 JANELLE Administration Lactated Ringer's 1,000 mls @ 125 mls/hr 10/25/20 05:45 10/25/20 14:04 Lactated Ringer's IV 1,000 mls .Q8H JANELLE Administration Levothyroxine Sodium 75 mcg 10/24/20 06:00 10/25/20 06:11 Levothyroxine Sodium 75 Mcg Tab PO 75 mcg 0600 JANELLE Administration Mycophenolate Mofetil 1,000 mg 10/24/20 09:00 10/25/20 09:37 Mycophenolate 250 Mg Cap PO 1,000 mg BID JANELLE Administration Pantoprazole Sodium 40 mg 10/25/20 09:00 10/25/20 09:32 Pantoprazole 40 Mg Tab PO 40 mg DAILY JANELLE Administration Prednisone 5 mg 10/24/20 08:00 10/25/20 09:33 Prednisone 5 Mg Tab PO 5 mg QAM-WM JANELLE Administration Trazodone HCl 50 mg 10/24/20 21:00 10/24/20 20:35 Trazodone Hcl 50 Mg Tab PO 50 mg HS JANELLE Administration Hospitalist Exam Vitals: Vital Signs (12 hours) Temp Pulse Resp BP Pulse Ox 10/25/20 12:00 98.9 F 10/25/20 08:00 98.4 F 67 15 133/73 100 10/25/20 04:00 98.4 F Weight Weight 131 lb 13.383 oz Most Recent Monitor Data Heart Rate from ECG 65 NIBP 112/61 NIBP BP-Mean 78 Respiration from ECG 1 SpO2 100 General Appearance: awake alert Eye: PERRL, anicteric sclera ENT: no oropharyngeal lesions, moist mucosa Neck: supple, no JVD Heart: RRR, no murmur Respiratory: no wheezes, no rales Gastrointestinal: soft, non-tender, non-distended, normal bowel sounds Extremities: no cyanosis, no edema Neurological: cranial nerve grossly intact, no focal deficits Psychiatric: normal affect, A&O x 3 Hosp A/P (1) Sepsis Code(s): A41.9 - SEPSIS, UNSPECIFIED ORGANISM Status: Resolved Qualifiers: Sepsis type: sepsis due to unspecified organism Sepsis acute organ dysfu nction status: with acute organ dysfunction Severe sepsis acute organ dys function type: acute renal failure Severe sepsis shock status: with septic shock (2) Perirectal abscess Code(s): K61.1 - RECTAL ABSCESS Status: Acute (3) Warfarin-induced coagulopathy Code(s): D68.32 - HEMORRHAGIC DISORD D/T EXTRINSIC CIRCULATING ANTICOAGULANTS; T45.515A - ADVERSE EFFECT OF ANTICOAGULANTS, INITIAL ENCOUNTER Status: Acute (4) Anxiety and depression Code(s): F41.9 - ANXIETY DISORDER, UNSPECIFIED; F32.9 - MAJOR DEPRESSIVE DISORDER, SINGLE EPISODE, UNSPECIFIED Status: Chronic (5) CKD (chronic kidney disease) stage 4, GFR 15-29 ml/min Code(s): N18.4 - CHRONIC KIDNEY DISEASE, STAGE 4 (SEVERE) Status: Chronic (6) Chronic anticoagulation Code(s): Z79.01 - SHELTER (CURRENT) USE OF ANTICOAGULANTS Status: Chronic (7) Dyslipidemia Code(s): E78.5 - HYPERLIPIDEMIA, UNSPECIFIED Status: Chronic (8) GERD (gastroesophageal reflux disease) Code(s): K21.9 - GASTRO-ESOPHAGEAL REFLUX DISEASE WITHOUT ESOPHAGITIS Status: Chronic Qualifiers: Esophagitis presence: esophagitis presence not specified Qualified Code(s): K21.9 - Gastro-esophageal reflux disease without esophagitis (9) H/O kidney transplant Status: Chronic (10) H/O mechanical aortic valve replacement Code(s): Z95.2 - PRESENCE OF PROSTHETIC HEART VALVE Status: Chronic (11) Hiatal hernia Code(s): K44.9 - DIAPHRAGMATIC HERNIA WITHOUT OBSTRUCTION OR GANGRENE Status: Chronic (12) Hypertension Code(s): I10 - ESSENTIAL (PRIMARY) HYPERTENSION Status: Chronic Qualifiers: Hypertension type: essential hypertension Qualified Code(s): I10 - Essen tial (primary) hypertension (13) Hypothyroidism Code(s): E03.9 - HYPOTHYROIDISM, UNSPECIFIED Status: Chronic Qualifiers: Hypothyroidism type: acquired Qualified Code(s): E03.9 - Hypothyroidism, unspecified (14) Immunosuppressed status Code(s): D89.9 - DISORDER INVOLVING THE IMMUNE MECHANISM, UNSPECIFIED Status: Chronic - Plan is on zosyn, dc vanc, await wound cs iv fluids per nephr adv, geno with ckd is resolving, h/o renal transplant done in 1996 h/o [facility] avr from 1998, on coumadin 1mg, coagulopathy is getting corrected continue rejection meds including cellcept, cyclosporin and prednisone. Home dose of synthroid, trazadone. hemostable PT to mobilize as tolerated may tx to med floor
[2020-10-25] MEDS: Warfarin Sodium 1 MG TAB PO SCH (16:58)
--- NOTE | 2020-10-25 18:11 | PRG ---
Follow up consultation DATE OF SERVICE: 10/25/2020 SUBJECTIVE: Ms. Cherry was seen at bedside today. The patient is doing well status The patient is postop day #1 fromincision and drainage of left perianal/gluteal abscess. The patient is doing well, not complaining of pain or tenderness. OBJECTIVE: VITAL SIGNS: Blood pressure 105/69, respiratory rate 12, O2 saturation 100 on room air, heart rate 65. GENERAL: In no acute distress, lying comfortably in bed. ABDOMEN: Soft, nontender to palpation. GENITOURINARY: Left perianal/gluteal abscess, packed with iodoform gauze. No erythema or redness around the area. ASSESSMENT: 1.Left perianal/gluteal abscess. PLAN: A 60-year-old female, status post I and D of left perianal/gluteal abscess. She is recovering well. Appreciate ICU level of care. Continue wound care with iodoform dressing changes once daily. Wound culture positive for gram-negative rods and gram-positive cocci in pairs and chains. Few gram-positive rods. Follow up final report. Trend WBC and fever curve Continue current antibiotic regimen. Trauma Surgery will sign off from the patient. Please consult us again with any further questions. Job ID: [id number] [facility]TD[facility]
[2020-10-25] MEDS: traZODone HCl 50 MG TAB PO SCH (19:41)
[2020-10-26] MEDS: Piperacillin/Tazobactam 2.25 GM in Sodium Chloride 0.9% 100 ML IVPB SCH ×3 (01:27→17:48)
[2020-10-26 04:42] LABS: #Eosinphils 0.2 thou/uL (0.0-0.7); #Lymphocytes 1.5 thou/uL (1.20-3.40); #Monocytes 0.5 thou/uL (0.11-0.59); #Neutrophils 4.9 thou/uL (1.40-6.50); %Basophils 0.5 % (0.0-1.0); %Eosinophils 2.2 % (0.0-10.0); %Lymphocytes 21.1 % (21.0-51.0); %Monocytes 7.5 % (0.0-10.0); %Neutrophils 68.6 % (42.0-75.0); Hemoglobin 6.7 g/dL (12.0-16.0); Mean Corpuscular HGB CONC 30.9 g/dL (32.0-36.0); Mean Corpuscular Volume 84.2 fL (78.0-98.0); Mean Platelet Volume 9.4 fL (7.4-10.4); Platelet Count 288 thou/uL (130-400); RBC Distribution Width 16.8 % (11.5-14.5); Red Blood Cell (RBC) Count 2.58 mill/uL (4.20-5.40); White Blood Cell (WBC) Count 7.1 thou/uL (4.8-10.8)
[2020-10-26 04:45] LABS: INR-International Normal Ratio 3.4; Prothrombin Time 34.8 sec (12.0-14.7)
[2020-10-26 05:07] LABS: Albumin 2.1 g/dL (3.5-5.0); Anion Gap 8 mmol/L (10-20); BUN (Urea Nitrogen) 24 mg/dL (9.8-20.1); BUN/Creatinine Ratio 13.41; CK (CPK) 890 U/L (29-168); Calc. Creatinine Clearance 32 mL/min (70-130); Calcium 8.2 mg/dL (7.8-10.44); Carbon Dioxide 31 mmol/L (22-29); Chloride 104 mmol/L (98-107); Glucose 82 mg/dL (70-105); Magnesium 1.5 mg/dL (1.6-2.6); Potassium 4.1 mmol/L (3.5-5.1); Sodium 139 mmol/L (136-145)
[2020-10-26] MEDS: Lactated Ringer's 1,000 ML IV SCH (05:07)
[2020-10-26 05:09] LABS: Iron 17 ug/dL (50-170); Iron Binding Capacity, Total 160 mcg/dL (265-497)
[2020-10-26 05:13] LABS: Phosphorus 1.8 mg/dL (2.3-4.7)
[2020-10-26] MEDS ORDERED: Electrolyte Replacement Protocol 1 EACH FS PRN (05:30)
[2020-10-26] MEDS ORDERED: Sodium Phosphate 30 MMOL in Sodium Chloride 0.9% 250 ML 250 ML IVPB SCH (05:30)
[2020-10-26] MEDS ORDERED: Magnesium Sulfate 4 GM in Sodium Chloride 0.9% 250 ML 250 ML IVPB SCH (05:30)
[2020-10-26] MEDS: Levothyroxine Sodium 75 MCG TAB PO SCH (06:20)
--- NOTE | 2020-10-26 09:01 | PRG ---
DATE OF SERVICE: SUBJECTIVE: This morning, she is awake, alert, responsive, no distress. OBJECTIVE: VITAL SIGNS: Temperature 98, pulse 53, blood pressure /55, sats are 97% on room air. CHEST: No wheezing, no crackles. CARDIAC: Normal S1, S2. LABORATORY DATA: White count , H and H 6 and 21. Creatinine is 1.79, BUN 24. ASSESSMENT: 1. Sepsis, gluteal infection. All cultures negative. 2. Azotemia, previous renal transplant. PLAN: She may benefit from a unit of packed cells slowly. Otherwise, continue all other medications. Supportive care, empiric antibiotics. Job ID: [id number]
[2020-10-26] MEDS: Iron, Sodium Ferric Gluconate 250 MG in Sodium Chloride 0.9% 100 ML IVPB SCH (09:37)
[2020-10-26] MEDS: cycloSPORINE, Modified 100 MG CAP PO SCH ×2 (09:37→20:13)
[2020-10-26] MEDS: Mycophenolate 250 MG CAP PO SCH ×2 (09:37→20:13)
[2020-10-26] MEDS: predniSONE 5 MG TAB PO SCH (09:37)
[2020-10-26] MEDS: cycloSPORINE, Modified 25 MG CAP PO SCH ×2 (09:57→20:13)
--- NOTE | 2020-10-26 10:10 | PDOC.NEPPN ---
- Subjective Encounter Date: 10/26/20 Subjective: Seen and examined. Feeling better. No fever. - Objective Vital Signs & Weight: Vital Signs (12 hours) Temp 10/26/20 08:00 98.4 F 10/26/20 04:00 98.2 F 10/26/20 00:00 98.7 F Weight Weight 134 lb 3.931 oz Most Recent Monitor Data Heart Rate from ECG 62 NIBP 100/55 NIBP BP-Mean 70 Respiration from ECG 0 SpO2 100 I&O: 10/25/20 10/26/20 10/27/20 06:59 06:59 06:59 Intake Total 4855 4834 240 Output Total 2125 2150 125 Balance 2730 2684 115 Result Diagrams: 10/26/20 04:23 10/26/20 04:23 Additional Labs: Accuchecks 10/25/20 19:55 POC Glucose 126 H Nephrology ROS - Medication Medications: Active Medications Generic Name Dose Route Start Last Admin Trade Name Freq PRN Reason Stop Dose Admin Cyclosporine 100 mg 10/24/20 09:00 10/26/20 09:37 Cyclosporine, Modified 100 Mg Cap PO 100 mg BID JANELLE Administration Cyclosporine 25 mg 10/24/20 09:00 10/26/20 09:57 Cyclosporine, Modified 25 Mg Cap PO 25 mg BID JANELLE Administration Piperacillin Sod/Tazobactam 100 mls @ 200 mls/hr 10/24/20 10:00 10/26/20 09:37 Sod 2.25 gm/ Sodium Chloride IVPB 100 mls 0200,1000,1800 JANELLE Administration Ferric Sodium Gluconate 120 mls @ 60 mls/hr 10/26/20 09:00 10/26/20 09:37 Complex 250 mg/ Sodium IVPB 10/28/20 09:01 120 mls Chloride DAILY JANELLE Administration Levothyroxine Sodium 75 mcg 10/24/20 06:00 10/26/20 06:20 Levothyroxine Sodium 75 Mcg Tab PO 75 mcg 0600 JANELLE Administration Mycophenolate Mofetil 1,000 mg 10/24/20 09:00 10/26/20 09:37 Mycophenolate 250 Mg Cap PO 1,000 mg BID JANELLE Administration Pantoprazole Sodium 40 mg 10/25/20 09:00 10/26/20 09:38 Pantoprazole 40 Mg Tab PO 40 mg DAILY JANELLE Administration Prednisone 5 mg 10/24/20 08:00 10/26/20 09:37 Prednisone 5 Mg Tab PO 5 mg QAM-WM JANELLE Administration Trazodone HCl 50 mg 10/24/20 21:00 10/25/20 19:41 Trazodone Hcl 50 Mg Tab PO 50 mg HS JANELLE Administration Warfarin Sodium 1 mg 10/25/20 17:00 10/25/20 16:58 Warfarin Sodium 1 Mg Tab PO 1 mg 1700 JANELLE Administration - Exam General Appearance: awake alert Eye: anicteric sclera ENT: normocephalic atraumatic, moist mucosa Neck: supple, symmetric, no JVD Respiratory: no wheezes, no ronchi, no tachypnea Cardiovascular: RRR, murmur present Gastrointestinal: soft, non-tender, non-distended, normal bowel sounds Extremities: no edema Neurological: CN's grossly intact Musculoskeletal: generalized weakness PSYCH: A&O x 3 Nephrology Results - Labs Result Diagrams: 10/26/20 04:23 10/26/20 04:23 Lab results: WBC 7.1 thou/uL (4.8-10.8) 10/26/20 04:23 Hgb 6.7 g/dL (12.0-16.0) L 10/26/20 04:23 Hct 21.7 % (36.0-47.0) L 10/26/20 04:23 MCV 84.2 fL (78.0-98.0) 10/26/20 04:23 Plt Count 288 thou/uL (130-400) 10/26/20 04:23 Neutrophils % 68.6 % (42.0-75.0) 10/26/20 04:23 Band Neuts % (Manual) 13 % (5-11) H 10/24/20 07:58 Sodium 139 mmol/L (136-145) 10/26/20 04:23 Potassium 4.1 mmol/L (3.5-5.1) 10/26/20 04:23 Chloride 104 mmol/L (98-107) 10/26/20 04:23 Carbon Dioxide 31 mmol/L (22-29) H 10/26/20 04:23 BUN 24 mg/dL (9.8-20.1) H 10/26/20 04:23 Creatinine 1.79 mg/dL (0.6-1.1) H 10/26/20 04:23 Glucose 82 mg/dL (70-105) 10/26/20 04:23 Lactic Acid 0.6 mmol/L (0.5-2.2) 10/23/20 23:45 Calcium 8.2 mg/dL (7.8-10.44) 10/26/20 04:23 Total Bilirubin 1.0 mg/dL (0.2-1.2) 10/25/20 04:01 AST 128 U/L (5-34) H 10/25/20 04:01 ALT 115 U/L (8-55) H 10/25/20 04:01 Alkaline Phosphatase 56 U/L (40-110) 10/25/20 04:01 Creatine Kinase 890 U/L (29-168) H 10/26/20 04:23 Serum Total Protein 4.6 g/dL (6.0-8.3) L 10/25/20 04:01 Albumin 2.1 g/dL (3.5-5.0) L 10/26/20 04:23 Urine Ketones Negative mg/dL (Negative) 10/24/20 Unknown Urine Blood 2+ (Negative) A 10/24/20 Unknown Urine Nitrite Negative (Negative) 10/24/20 Unknown Ur Leukocyte Esterase Negative Stephania/uL (Negative) 10/24/20 Unknown Urine RBC 0-3 HPF (0-3) 10/24/20 Unknown Urine WBC 0-3 HPF (0-3) 10/24/20 Unknown Ur Squamous Epith Cells None Seen HPF (0-3) 10/24/20 Unknown Urine Bacteria None Seen HPF (None Seen) 10/24/20 Unknown Sodium 139 mmol/L (136-145) 10/26/20 04:23 Potassium 4.1 mmol/L (3.5-5.1) 10/26/20 04:23 Chloride 104 mmol/L (98-107) 10/26/20 04:23 Carbon Dioxide 31 mmol/L (22-29) H 10/26/20 04:23 Anion Gap 8 mmol/L (10-20) L 10/26/20 04:23 BUN 24 mg/dL (9.8-20.1) H 10/26/20 04:23 Creatinine 1.79 mg/dL (0.6-1.1) H 10/26/20 04:23 Glucose 82 mg/dL (70-105) 10/26/20 04:23 Calcium 8.2 mg/dL (7.8-10.44) 10/26/20 04:23 Phosphorus 1.8 mg/dL (2.3-4.7) L 10/26/20 04:23 Magnesium 1.5 mg/dL (1.6-2.6) L 10/26/20 04:23 Albumin 2.1 g/dL (3.5-5.0) L 10/26/20 04:23 Nephrology AP PN - Plan ASSESSMENT: Acute kidney injury: Due to hemodynamic factors related to severe dehydration and rhabdomyolysis. Creatinine is down to 1.7. Better than recent baseline. Rhabdomyolysis: Due to acute dehydration in the patient predisposed due to me dications. The patient is on amiodarone, fenofibrate, Lipitor, cyclosporine, which are predisposed to rhabdomyolysis. CK is trending down. Hyponatremia: Due to volume depletion with appropriate ADH secretion. Resolved. Hypokalemia: Replete. Hypomagnesemia Hypophosphatemia Chronic kidney disease stage 4 of transplanted kidney. End-stage renal disease, status post renal transplant in 1996. Septic shock: Related to left gluteal abscess. Resolved with IV fluid and pressors. Severe metabolic acidosis: Due to acute kidney injury and use of normal saline therapy. Resolved Supratherapeutic INR related to Coumadin therapy. Aremia: Iron deficiency and CKF. Acute drop is due to correction of hemo concentration. Acute bleeding cannot be ruled out given supertherapeutic INR PLAN Start IV iron Replete serum magnesium and phosphorus with magnesium sulphate and potassium phosphate respectively DC LR. Blood transfusion as per primary attending. Avoid nephrotoxic agents. Continue to hold lipitor and fenofibrate. Continue current immunosuppressive therapy.
--- NOTE | 2020-10-26 14:47 | PDOC.HOSPP ---
- Subjective Encounter Date: 10/26/20 Encounter Time: 09:45 Subjective: no sob or pain feels better is ambulating in room no bleeding per rectum - Objective Vital Signs & Weight: Vital Signs (12 hours) Temp Pulse Resp BP Pulse Ox 10/26/20 13:05 98.2 F 57 L 16 124/70 10/26/20 12:44 99.2 F 56 L 16 140/72 10/26/20 12:00 98.3 F 10/26/20 08:00 98.5 F 55 L 16 137/74 95 10/26/20 04:00 98.2 F Weight Weight 134 lb 3.931 oz Most Recent Monitor Data Heart Rate from ECG 55 NIBP 137/74 NIBP BP-Mean 95 Respiration from ECG 0 SpO2 95 I&O: 10/25/20 10/26/20 10/27/20 06:59 06:59 06:59 Intake Total 4855 4834 1565 Output Total 2125 2150 400 Balance 2730 2684 1165 Result Diagrams: 10/26/20 04:23 10/26/20 04:23 Additional Labs: Accuchecks 10/25/20 19:55 POC Glucose 126 H Hospitalist ROS - Medication Medications: Active Medications Generic Name Dose Route Start Last Admin Trade Name Freq PRN Reason Stop Dose Admin Cyclosporine 100 mg 10/24/20 09:00 10/26/20 09:37 Cyclosporine, Modified 100 Mg Cap PO 100 mg BID JANELLE Administration Cyclosporine 25 mg 10/24/20 09:00 10/26/20 09:57 Cyclosporine, Modified 25 Mg Cap PO 25 mg BID JANELLE Administration Piperacillin Sod/Tazobactam 100 mls @ 200 mls/hr 10/24/20 10:00 10/26/20 09:37 Sod 2.25 gm/ Sodium Chloride IVPB 100 mls 0200,1000,1800 JANELLE Administration Ferric Sodium Gluconate 120 mls @ 60 mls/hr 10/26/20 09:00 10/26/20 09:37 Complex 250 mg/ Sodium IVPB 10/28/20 09:01 120 mls Chloride DAILY AJNELLE Administration Levothyroxine Sodium 75 mcg 10/24/20 06:00 10/26/20 06:20 Levothyroxine Sodium 75 Mcg Tab PO 75 mcg 0600 JANELLE Administration Mycophenolate Mofetil 1,000 mg 10/24/20 09:00 10/26/20 09:37 Mycophenolate 250 Mg Cap PO 1,000 mg BID JANELLE Administration Pantoprazole Sodium 40 mg 10/25/20 09:00 10/26/20 09:38 Pantoprazole 40 Mg Tab PO 40 mg DAILY JANELLE Administration Prednisone 5 mg 10/24/20 08:00 10/26/20 09:37 Prednisone 5 Mg Tab PO 5 mg QAM-WM JANELLE Administration Trazodone HCl 50 mg 10/24/20 21:00 10/25/20 19:41 Trazodone Hcl 50 Mg Tab PO 50 mg HS JANELLE Administration Warfarin Sodium 1 mg 10/25/20 17:00 10/25/20 16:58 Warfarin Sodium 1 Mg Tab PO 1 mg 1700 JANELLE Administration Hospitalist Exam Vitals: Vital Signs (12 hours) Temp Pulse Resp BP Pulse Ox 10/26/20 13:05 98.2 F 57 L 16 124/70 10/26/20 12:44 99.2 F 56 L 16 140/72 10/26/20 12:00 98.3 F 10/26/20 08:00 98.5 F 55 L 16 137/74 95 10/26/20 04:00 98.2 F Weight Weight 134 lb 3.931 oz Most Recent Monitor Data Heart Rate from ECG 55 NIBP 137/74 NIBP BP-Mean 95 Respiration from ECG 0 SpO2 95 General Appearance: awake alert Eye: PERRL, anicteric sclera ENT: no oropharyngeal lesions, moist mucosa Neck: supple, no JVD Heart: RRR, no murmur Respiratory: no wheezes, no rales Gastrointestinal: soft, non-tender, non-distended, normal bowel sounds Extremities: no cyanosis, no edema Neurological: cranial nerve grossly intact, no focal deficits Psychiatric: normal affect, A&O x 3 Hosp A/P (1) Sepsis Code(s): A41.9 - SEPSIS, UNSPECIFIED ORGANISM Status: Resolved Qualifiers: Sepsis type: sepsis due to unspecified organism Sepsis acute organ dysfunction status: with acute organ dysfunction Severe sepsis acute organ dysfunction type: acute renal failure Severe sepsis shock status: with septic shock (2) Perirectal abscess Code(s): K61.1 - RECTAL ABSCESS Status: Acute (3) Warfarin-induced coagulopathy Code(s): D68.32 - HEMORRHAGIC DISORD D/T EXTRINSIC CIRCULATING ANTICOAGULANTS; T45.515A - ADVERSE EFFECT OF ANTICOAGULANTS, INITIAL ENCOUNTER Status: Resolved (4) Anxiety and depression Code(s): F41.9 - ANXIETY DISORDER, UNSPECIFIED; F32.9 - MAJOR DEPRESSIVE DISORDER, SINGLE EPISODE, UNSPECIFIED Status: Chronic (5) CKD (chronic kidney disease) stage 4, GFR 15-29 ml/min Code(s): N18.4 - CHRONIC KIDNEY DISEASE, STAGE 4 (SEVERE) Status: Chronic (6) Chronic anticoagulation Code(s): Z79.01 - CALCULATOR OPERATOR (CURRENT) USE OF ANTICOAGULANTS Status: Chronic (7) Dyslipidemia Code(s): E78.5 - HYPERLIPIDEMIA, UNSPECIFIED Status: Chronic (8) GERD (gastroesophageal reflux disease) Code(s): K21.9 - GASTRO-ESOPHAGEAL REFLUX DISEASE WITHOUT ESOPHAGITIS Status: Chronic Qualifiers: Esophagitis presence: esophagitis presence not specified Qualified Code(s): K21.9 - Gastro-esophageal reflux disease without esophagitis (9) H/O kidney transplant Status: Chronic (10) H/O mechanical aortic valve replacement Code(s): Z95.2 - PRESENCE OF PROSTHETIC HEART VALVE Status: Chronic (11) Hiatal hernia Code(s): K44.9 - DIAPHRAGMATIC HERNIA WITHOUT OBSTRUCTION OR GANGRENE Status: Chronic (12) Hypertension Code(s): I10 - ESSENTIAL (PRIMARY) HYPERTENSION Status: Chronic Qualifiers: Hypertension type: essential hypertension Qualified Code(s): I10 - Essential (primary) hypertension (13) Hypothyroidism Code(s): E03.9 - HYPOTHYROIDISM, UNSPECIFIED Status: Chronic Qualifiers: Hypothyroidism type: acquired Qualified Code(s): E03.9 - Hypothyroidism, unspecified (14) Immunosuppressed status Code(s): D89.9 - DISORDER INVOLVING THE IMMUNE MECHANISM, UNSPECIFIED Status: Chronic - Plan is on zosyn, dc vanc, await wound cs (strep anginosus) geno with ckd is resolving, h/o renal transplant done in 1996 h/o [facility] avr from 1998, on coumadin 1 mg, coagulopathy is getting corrected continue rejection meds including cellcept, cyclosporin and prednisone. Home dose of synthroid, trazadone. hemostable PT to mobilize as tolerated transfuse 1 u prbc dc plan in am continue sitz bath
[2020-10-26] MEDS: Warfarin Sodium 1 MG TAB PO SCH (17:48)
[2020-10-26] MEDS: traZODone HCl 50 MG TAB PO SCH (20:13)
[2020-10-27] MEDS: Piperacillin/Tazobactam 2.25 GM in Sodium Chloride 0.9% 100 ML IVPB SCH ×3 (01:16→18:25)
[2020-10-27 04:27] LABS: INR-International Normal Ratio 3.5; Prothrombin Time 35.5 sec (12.0-14.7)
[2020-10-27] MEDS: Levothyroxine Sodium 75 MCG TAB PO SCH (05:35)
[2020-10-27 09:09] LABS: Hemoglobin 8.6 g/dL (12.0-16.0); Mean Corpuscular HGB CONC 31.3 g/dL (32.0-36.0); Mean Corpuscular Volume 86.4 fL (78.0-98.0); Platelet Count 320 thou/uL (130-400); RBC Distribution Width 16.8 % (11.5-14.5); Red Blood Cell (RBC) Count 3.17 mill/uL (4.20-5.40); White Blood Cell (WBC) Count 7.8 thou/uL (4.8-10.8)
--- NOTE | 2020-10-27 09:12 | PRG ---
DATE OF SERVICE: 10/27/2020 SUBJECTIVE: Didi Cherry this morning is awake, alert, responsive. ICU says no beds available. OBJECTIVE: VITAL SIGNS: Temperature 98, sats are 90% on room air, and blood pressure 137/84. GENERAL: She is awake, alert, and responsive. CHEST: No wheezing. No crackles. CARDIAC: Normal S1 and S2. ABDOMEN: No masses. ASSESSMENT: Chronic renal failure, gluteal abscess, respiratory failure post transplant. PLAN: The patient is stable enough to be transferred to out of the ICU once bed is available. Pulmonary will follow at a distance once she leaves the ICU. Job ID: [id number]
[2020-10-27] MEDS: Mycophenolate 250 MG CAP PO SCH ×2 (09:18→20:59)
[2020-10-27] MEDS: cycloSPORINE, Modified 100 MG CAP PO SCH ×2 (09:18→21:09)
[2020-10-27] MEDS: cycloSPORINE, Modified 25 MG CAP PO SCH ×2 (09:18→21:09)
[2020-10-27] MEDS: predniSONE 5 MG TAB PO SCH (09:18)
[2020-10-27 09:40] LABS: Albumin 2.4 g/dL (3.5-5.0); Anion Gap 12 mmol/L (10-20); BUN (Urea Nitrogen) 21 mg/dL (9.8-20.1); BUN/Creatinine Ratio 11.41; Calc. Creatinine Clearance 32 mL/min (70-130); Calcium 8.2 mg/dL (7.8-10.44); Carbon Dioxide 27 mmol/L (22-29); Chloride 101 mmol/L (98-107); Glucose 100 mg/dL (70-105); Magnesium 1.8 mg/dL (1.6-2.6); Sodium 136 mmol/L (136-145)
[2020-10-27 09:48] LABS: Phosphorus 1.9 mg/dL (2.3-4.7)
[2020-10-27] MEDS: Iron, Sodium Ferric Gluconate 250 MG in Sodium Chloride 0.9% 100 ML IVPB SCH (10:20)
[2020-10-27] MEDS: PHOS-NAK 1 PKT PACK PO SCH ×2 (10:47→14:17)
--- NOTE | 2020-10-27 11:24 | PDOC.NEPPN ---
- Subjective Encounter Date: 10/27/20 Subjective: No new problem. - Objective Vital Signs & Weight: Vital Signs (12 hours) Temp Pulse Resp BP Pulse Ox 10/27/20 09:00 98.4 F 62 16 135/71 100 10/27/20 08:00 99.0 F 98 10/27/20 03:55 98.4 F 10/27/20 00:00 98.8 F Weight Weight 135 lb 12.876 oz Most Recent Monitor Data Heart Rate from ECG 61 NIBP 137/84 NIBP BP-Mean 101 Respiration from ECG 18 SpO2 99 I&O: 10/26/20 10/27/20 10/28/20 06:59 06:59 06:59 Intake Total 4834 4021 1080 Output Total 2150 2145 390 Balance 2684 5786 690 Result Diagrams: 10/27/20 08:46 10/27/20 08:46 Nephrology ROS - Medication Medications: Active Medications Generic Name Dose Route Start Last Admin Trade Name Freq PRN Reason Stop Dose Admin Cyclosporine 100 mg 10/24/20 09:00 10/27/20 09:18 Cyclosporine, Modified 100 Mg Cap PO 100 mg BID JANELLE Administration Cyclosporine 25 mg 10/24/20 09:00 10/27/20 09:18 Cyclosporine, Modified 25 Mg Cap PO 25 mg BID JANELLE Administration Piperacillin Sod/Tazobactam 100 mls @ 200 mls/hr 10/24/20 10:00 10/27/20 09:18 Sod 2.25 gm/ Sodium Chloride IVPB 100 mls 0200,1000,1800 JANELLE Administration Ferric Sodium Gluconate 120 mls @ 60 mls/hr 10/26/20 09:00 10/27/20 10:20 Complex 250 mg/ Sodium IVPB 10/28/20 09:01 120 mls Chloride DAILY JANELLE Administration Levothyroxine Sodium 75 mcg 10/24/20 06:00 10/27/20 05:35 Levothyroxine Sodium 75 Mcg Tab PO 75 mcg 0600 JANELLE Administration Miscellaneous Medication 2 pkt 10/27/20 11:00 10/27/20 10:47 Phos-Nak 1 Pkt Pack PO 10/27/20 15:01 2 pkt Q4H JANELLE Administration Mycophenolate Mofetil 1,000 mg 10/24/20 09:00 10/27/20 09:18 Mycophenolate 250 Mg Cap PO 1,000 mg BID JANELLE Administration Pantoprazole Sodium 40 mg 10/25/20 09:00 10/27/20 09:18 Pantoprazole 40 Mg Tab PO 40 mg DAILY JANELLE Administration Prednisone 5 mg 10/24/20 08:00 10/27/20 09:18 Prednisone 5 Mg Tab PO 5 mg QAM-WM JANELLE Administration Trazodone HCl 50 mg 10/24/20 21:00 10/26/20 20:13 Trazodone Hcl 50 Mg Tab PO 50 mg HS JANELLE Administration Warfarin Sodium 1 mg 10/25/20 17:00 10/26/20 17:48 Warfarin Sodium 1 Mg Tab PO 1 mg 1700 JANELLE Administration - Exam General Appearance: awake alert Eye: anicteric sclera ENT: normocephalic atraumatic, moist mucosa Neck: supple, symmetric, no JVD Respiratory: no wheezes, no rales, no ronchi, no tachypnea Respiratory - other findings: fair air entry bilaterally Cardiovascular: RRR, murmur present Gastrointestinal: soft, non-distended, normal bowel sounds Extremities: no edema Neurological: CN's grossly intact, no focal deficits PSYCH: A&O x 3 Nephrology Results - Labs Result Diagrams: 10/27/20 08:46 10/27/20 08:46 Lab results: WBC 7.8 thou/uL (4.8-10.8) 10/27/20 08:46 Hgb 8.6 g/dL (12.0-16.0) L 10/27/20 08:46 Hct 27.4 % (36.0-47.0) L 10/27/20 08:46 MCV 86.4 fL (78.0-98.0) 10/27/20 08:46 Plt Count 320 thou/uL (130-400) 10/27/20 08:46 Neutrophils % 68.6 % (42.0-75.0) 10/26/20 04:23 Band Neuts % (Manual) 13 % (5-11) H 10/24/20 07:58 Sodium 136 mmol/L (136-145) 10/27/20 08:46 Potassium 4.0 mmol/L (3.5-5.1) 10/27/20 08:46 Chloride 101 mmol/L (98-107) 10/27/20 08:46 Carbon Dioxide 27 mmol/L (22-29) 10/27/20 08:46 BUN 21 mg/dL (9.8-20.1) H 10/27/20 08:46 Creatinine 1.84 mg/dL (0.6-1.1) H 10/27/20 08:46 Glucose 100 mg/dL (70-105) 10/27/20 08:46 Lactic Acid 0.6 mmol/L (0.5-2.2) 10/23/20 23:45 Calcium 8.2 mg/dL (7.8-10.44) 10/27/20 08:46 Total Bilirubin 1.0 mg/dL (0.2-1.2) 10/25/20 04:01 AST 128 U/L (5-34) H 10/25/20 04:01 ALT 115 U/L (8-55) H 10/25/20 04:01 Alkaline Phosphatase 56 U/L (40-110) 10/25/20 04:01 Creatine Kinase 890 U/L (29-168) H 10/26/20 04:23 Serum Total Protein 4.6 g/dL (6.0-8.3) L 10/25/20 04:01 Albumin 2.4 g/dL (3.5-5.0) L 10/27/20 08:46 Urine Ketones Negative mg/dL (Negative) 10/24/20 Unknown Urine Blood 2+ (Negative) A 10/24/20 Unknown Urine Nitrite Negative (Negative) 10/24/20 Unknown Ur Leukocyte Esterase Negative Stephania/uL (Negative) 10/24/20 Unknown Urine RBC 0-3 HPF (0-3) 10/24/20 Unknown Urine WBC 0-3 HPF (0-3) 10/24/20 Unknown Ur Squamous Epith Cells None Seen HPF (0-3) 10/24/20 Unknown Urine Bacteria None Seen HPF (None Seen) 10/24/20 Unknown Sodium 136 mmol/L (136-145) 10/27/20 08:46 Potassium 4.0 mmol/L (3.5-5.1) 10/27/20 08:46 Chloride 101 mmol/L (98-107) 10/27/20 08:46 Carbon Dioxide 27 mmol/L (22-29) 10/27/20 08:46 Anion Gap 12 mmol/L (10-20) 10/27/20 08:46 BUN 21 mg/dL (9.8-20.1) H 10/27/20 08:46 Creatinine 1.84 mg/dL (0.6-1.1) H 10/27/20 08:46 Glucose 100 mg/dL (70-105) 10/27/20 08:46 Calcium 8.2 mg/dL (7.8-10.44) 10/27/20 08:46 Phosphorus 1.9 mg/dL (2.3-4.7) L 10/27/20 08:46 Magnesium 1.8 mg/dL (1.6-2.6) 10/27/20 08:46 Albumin 2.4 g/dL (3.5-5.0) L 10/27/20 08:46 Nephrology AP PN - Plan ASSESSMENT: Acute kidney injury: Due to hemodynamic factors related to severe dehydration and rhabdomyolysis. Resolved. Creat is back to baseline and stable. Rhabdomyolysis: Due to acute dehydration in the patient predisposed due to medications. The patient is on amiodarone, fenofibrate, Lipitor, cyclosporine, which are predisposed to rhabdomyolysis. Hyponatremia: Due to volume depletion with appropriate ADH secretion. Resolved. Hypokalemia: Repleted Hypomagnesemia. Repleted Hypophosphatemia. repleted. Chronic kidney disease stage 4 of transplanted kidney. End-stage renal disease, status post renal transplant in 1996. Septic shock: Related to left gluteal abscess. Resolved with IV fluid and pressors. Severe metabolic acidosis: Due to acute kidney injury and use of normal saline therapy. Resolved Coumadin induced coagulopathy. Aremia: Iron deficiency and CKD. Acute drop is due to correction of hemoconcentration. Acute bleeding cannot be ruled out given supertherapeutic INR PLAN Blood transfusion as per primary attending. Avoid nephrotoxic agents. Continue to hold lipitor and fenofibrate. Continue current immunosuppressive therapy.
[2020-10-27] MEDS ORDERED: Magnesium 2 GM/50 ML 2 GM in Premix Bag 1 BAG IVPB SCH (12:30)
[2020-10-27] MEDS ORDERED: traMADol HCl 50 MG TAB PO PRN (12:33)
[2020-10-27] MEDS ORDERED: Acetaminophen 325 MG TAB PO PRN (12:34)
[2020-10-27] MEDS ORDERED: Morphine 2 MG/ML VIAL SLOW IVP PRN (12:49)
[2020-10-27] MEDS ORDERED: Ondansetron PF 4 MG/2 ML Vial IVP PRN (12:49)
--- NOTE | 2020-10-27 15:26 | PDOC.HOSPP ---
- Subjective Encounter Date: 10/27/20 Encounter Time: 10:15 Subjective: no sob or chest pain has pain in her abscess site - Objective Vital Signs & Weight: Vital Signs (12 hours) Temp Pulse Pulse Pulse Resp BP BP 10/27/20 13:00 98.8 F 58 L 18 10/27/20 12:00 98.9 F 10/27/20 11:36 63 62 136/74 139/74 10/27/20 09:00 98.4 F 62 16 10/27/20 08:00 99.0 F 10/27/20 03:55 98.4 F BP Pulse Ox Pulse Ox Pulse Ox 10/27/20 13:00 142/78 H 10/27/20 12:00 10/27/20 11:36 96 95 10/27/20 09:00 135/71 100 10/27/20 08:00 98 10/27/20 03:55 Weight Weight 135 lb 12.876 oz Most Recent Monitor Data Heart Rate from ECG 61 NIBP 161/91 NIBP BP-Mean 114 Respiration from ECG 18 SpO2 98 I&O: 10/26/20 10/27/20 10/28/20 06:59 06:59 06:59 Intake Total 4834 4021 1900 Output Total 2150 2145 790 Balance 6992 4577 1110 Result Diagrams: 10/27/20 08:46 10/27/20 08:46 Hospitalist ROS - Medication Medications: Active Medications Generic Name Dose Route Start Last Admin Trade Name Freq PRN Reason Stop Dose Admin Cyclosporine 100 mg 10/24/20 09:00 10/27/20 09:18 Cyclosporine, Modified 100 Mg Cap PO 100 mg BID JANELLE Administration Cyclosporine 25 mg 10/24/20 09:00 10/27/20 09:18 Cyclosporine, Modified 25 Mg Cap PO 25 mg BID JANELLE Administration Piperacillin Sod/Tazobactam 100 mls @ 200 mls/hr 10/24/20 10:00 10/27/20 09:18 Sod 2.25 gm/ Sodium Chloride IVPB 100 mls 0200,1000,1800 JANELLE Administration Ferric Sodium Gluconate 120 mls @ 60 mls/hr 10/26/20 09:00 10/27/20 10:20 Complex 250 mg/ Sodium IVPB 10/28/20 09:01 120 mls Chloride DAILY JANELLE Administration Magnesium Sulfate 2 gm/ Device 50 mls @ 50 mls/hr 10/27/20 12:30 10/27/20 13:51 IVPB 10/27/20 16:00 50 mls NOW JANELLE Administration Levothyroxine Sodium 75 mcg 10/24/20 06:00 10/27/20 05:35 Levothyroxine Sodium 75 Mcg Tab PO 75 mcg 0600 JANELLE Administration Morphine Sulfate 1 mg 10/27/20 12:49 10/27/20 13:25 Morphine 2 Mg/Ml Vial SLOW IVP 1 mg Q4H PRN Administration Pain Mycophenolate Mofetil 1,000 mg 10/24/20 09:00 10/27/20 09:18 Mycophenolate 250 Mg Cap PO 1,000 mg BID JANELLE Administration Ondansetron HCl 4 mg 10/27/20 12:49 10/27/20 13:26 Ondansetron Pf 4 Mg/2 Ml Vial IVP 4 mg Q6H PRN Administration Nausea/Vomiting Pantoprazole Sodium 40 mg 10/25/20 09:00 10/27/20 09:18 Pantoprazole 40 Mg Tab PO 40 mg DAILY JANELLE Administration Prednisone 5 mg 10/24/20 08:00 10/27/20 09:18 Prednisone 5 Mg Tab PO 5 mg QAM-WM JANELLE Administration Trazodone HCl 50 mg 10/24/20 21:00 10/26/20 20:13 Trazodone Hcl 50 Mg Tab PO 50 mg HS JANELLE Administration Warfarin Sodium 1 mg 10/25/20 17:00 10/26/20 17:48 Warfarin Sodium 1 Mg Tab PO 1 mg 1700 JANELLE Administration Hospitalist Exam Vitals: Vital Signs (12 hours) Temp Pulse Pulse Pulse Resp BP BP 10/27/20 13:00 98.8 F 58 L 18 10/27/20 12:00 98.9 F 10/27/20 11:36 63 62 136/74 139/74 10/27/20 09:00 98.4 F 62 16 10/27/20 08:00 99.0 F 10/27/20 03:55 98.4 F BP Pulse Ox Pulse Ox Pulse Ox 10/27/20 13:00 142/78 H 10/27/20 12:00 10/27/20 11:36 96 95 10/27/20 09:00 135/71 100 10/27/20 08:00 98 10/27/20 03:55 Weight Weight 135 lb 12.876 oz Most Recent Monitor Data Heart Rate from ECG 61 NIBP 161/91 NIBP BP-Mean 114 Respiration from ECG 18 SpO2 98 General Appearance: awake alert Eye: PERRL, anicteric sclera ENT: no oropharyngeal lesions, moist mucosa Neck: supple, no JVD Heart: RRR, no murmur Respiratory: no wheezes, no rales Gastrointestinal: soft, non-tender, non-distended, normal bowel sounds Extremities: no cyanosis, no edema Neurological: cranial nerve grossly intact, no focal deficits Psychiatric: normal affect, A&O x 3 Hosp A/P (1) Sepsis Code(s): A41.9 - SEPSIS, UNSPECIFIED ORGANISM Status: Resolved Qualifiers: Sepsis type: sepsis due to unspecified organism Sepsis acute organ dysfunction status: with acute organ dysfunction Severe sepsis acute organ dysfunction type: acute renal failure Severe sepsis shock status: with septic shock (2) Perirectal abscess Code(s): K61.1 - RECTAL ABSCESS Status: Acute (3) Warfarin-induced coagulopathy Code(s): D68.32 - HEMORRHAGIC DISORD D/T EXTRINSIC CIRCULATING ANTICOAGULANTS; T45.515A - ADVERSE EFFECT OF ANTICOAGULANTS, INITIAL ENCOUNTER Status: Resolved (4) Anxiety and depression Code(s): F41.9 - ANXIETY DISORDER, UNSPECIFIED; F32.9 - MAJOR DEPRESSIVE DISORDER, SINGLE EPISODE, UNSPECIFIED Status: Chronic (5) CKD (chronic kidney disease) stage 4, GFR 15-29 ml/min Code(s): N18.4 - CHRONIC KIDNEY DISEASE, STAGE 4 (SEVERE) Status: Chronic (6) Chronic anticoagulation Code(s): Z79.01 - USP (CURRENT) USE OF ANTICOAGULANTS Status: Chronic (7) Dyslipidemia Code(s): E78.5 - HYPERLIPIDEMIA, UNSPECIFIED Status: Chronic (8) GERD (gastroesophageal reflux disease) Code(s): K21.9 - GASTRO-ESOPHAGEAL REFLUX DISEASE WITHOUT ESOPHAGITIS Status: Chronic Qualifiers: Esophagitis presence: esophagitis presence not specified Qualified Code(s): K21.9 - Gastro-esophageal reflux disease without esophagitis (9) H/O kidney transplant Status: Chronic (10) H/O mechanical aortic valve replacement Code(s): Z95.2 - PRESENCE OF PROSTHETIC HEART VALVE Status: Chronic (11) Hiatal hernia Code(s): K44.9 - DIAPHRAGMATIC HERNIA WITHOUT OBSTRUCTION OR GANGRENE Status: Chronic (12) Hypertension Code(s): I10 - ESSENTIAL (PRIMARY) HYPERTENSION Status: Chronic Qualifiers: Hypertension type: essential hypertension Qualified Code(s): I10 - Essential (primary) hypertension (13) Hypothyroidism Code(s): E03.9 - HYPOTHYROIDISM, UNSPECIFIED Status: Chronic Qualifiers: Hypothyroidism type: acquired Qualified Code(s): E03.9 - Hypothyroidism, unspecified (14) Immunosuppressed status Code(s): D89.9 - DISORDER INVOLVING THE IMMUNE MECHANISM, UNSPECIFIED Status: Chronic - Plan is on zosyn, await wound cs (strep anginosus) geno with ckd is resolving, h/o renal transplant done in [address] [facility] avr from 1998, on coumadin 1 mg, coagulopathy is getting corrected continue rejection meds including cellcept, cyclosporin and prednisone. Home dose of synthroid, trazadone. hemostable PT to mobilize as tolerated got 1 u prbc 10/26 dc plan to [facility] as she cant manage herself at home and cant help her, given immunosuppressed state she needs closed monitoring of her wound. continue sitz bath may dc anytime if she is accepted to swing bed.
[2020-10-27] MEDS: Warfarin Sodium 1 MG TAB PO SCH (18:35)
[2020-10-27] MEDS: traZODone HCl 50 MG TAB PO SCH (20:58)
[2020-10-28] MEDS: Piperacillin/Tazobactam 2.25 GM in Sodium Chloride 0.9% 100 ML IVPB SCH ×3 (02:38→17:25)
[2020-10-28] MEDS: Levothyroxine Sodium 75 MCG TAB PO SCH (05:14)
[2020-10-28 06:38] LABS: Hemoglobin 8.3 g/dL (12.0-16.0); Mean Corpuscular HGB CONC 31.5 g/dL (32.0-36.0); Mean Corpuscular Hemoglobin 26.9 pg (27.0-31.0); Mean Corpuscular Volume 85.4 fL (78.0-98.0); Mean Platelet Volume 9.3 fL (7.4-10.4); Platelet Count 316 thou/uL (130-400); Red Blood Cell (RBC) Count 3.07 mill/uL (4.20-5.40); White Blood Cell (WBC) Count 6.2 thou/uL (4.8-10.8)
[2020-10-28 06:41] LABS: INR-International Normal Ratio 3.2; Prothrombin Time 33.1 sec (12.0-14.7)
[2020-10-28 07:11] LABS: Albumin 2.2 g/dL (3.5-5.0); Anion Gap 12 mmol/L (10-20); BUN (Urea Nitrogen) 23 mg/dL (9.8-20.1); BUN/Creatinine Ratio 12.78; Calc. Creatinine Clearance 34 mL/min (70-130); Calcium 8.1 mg/dL (7.8-10.44); Carbon Dioxide 28 mmol/L (22-29); Chloride 102 mmol/L (98-107); Glucose 74 mg/dL (70-105); Phosphorus 3.2 mg/dL (2.3-4.7); Potassium 4.4 mmol/L (3.5-5.1); Sodium 138 mmol/L (136-145)
[2020-10-28] MEDS: predniSONE 5 MG TAB PO SCH (08:41)
[2020-10-28] MEDS: Mycophenolate 250 MG CAP PO SCH ×2 (08:41→21:06)
[2020-10-28] MEDS: cycloSPORINE, Modified 25 MG CAP PO SCH ×2 (09:27→21:07)
[2020-10-28] MEDS: cycloSPORINE, Modified 100 MG CAP PO SCH ×2 (09:27→21:07)
[2020-10-28] MEDS: Iron, Sodium Ferric Gluconate 250 MG in Sodium Chloride 0.9% 100 ML IVPB SCH (09:27)
--- NOTE | 2020-10-28 11:24 | PDOC.NEPPN ---
- Subjective Encounter Date: 10/28/20 Subjective: No new problem. - Objective Vital Signs & Weight: Vital Signs (12 hours) Temp Pulse Resp BP Pulse Ox 10/28/20 07:02 98.4 F 49 L 18 125/65 100 10/28/20 05:06 55 L 10/28/20 04:45 98.6 F 50 L 18 124/70 90 L 10/28/20 00:00 98.7 F 50 L 18 120/65 92 L Weight Weight 144 lb Most Recent Monitor Data Heart Rate from ECG 61 NIBP 161/91 NIBP BP-Mean 114 Respiration from ECG 18 SpO2 98 I&O: 10/27/20 10/28/20 10/29/20 06:59 06:59 06:59 Intake Total 4021 2590 Output Total 2145 1940 Balance 1876 650 Result Diagrams: 10/28/20 05:58 10/28/20 05:58 Nephrology ROS - Medication Medications: Active Medications Generic Name Dose Route Start Last Admin Trade Name Freq PRN Reason Stop Dose Admin Cyclosporine 100 mg 10/24/20 09:00 10/28/20 09:27 Cyclosporine, Modified 100 Mg Cap PO 100 mg BID JANELLE Administration Cyclosporine 25 mg 10/24/20 09:00 10/28/20 09:27 Cyclosporine, Modified 25 Mg Cap PO 25 mg BID JANELLE Administration Piperacillin Sod/Tazobactam 100 mls @ 200 mls/hr 10/24/20 10:00 10/28/20 02:38 Sod 2.25 gm/ Sodium Chloride IVPB 100 mls 0200,1000,1800 JANELLE Administration Levothyroxine Sodium 75 mcg 10/24/20 06:00 10/28/20 05:14 Levothyroxine Sodium 75 Mcg Tab PO 75 mcg 0600 JANELLE Administration Morphine Sulfate 1 mg 10/27/20 12:49 10/27/20 13:25 Morphine 2 Mg/Ml Vial SLOW IVP 1 mg Q4H PRN Administration Pain Mycophenolate Mofetil 1,000 mg 10/24/20 09:00 10/28/20 08:41 Mycophenolate 250 Mg Cap PO 1,000 mg BID JANELLE Administration Ondansetron HCl 4 mg 10/27/20 12:49 10/27/20 13:26 Ondansetron Pf 4 Mg/2 Ml Vial IVP 4 mg Q6H PRN Administration Nausea/Vomiting Pantoprazole Sodium 40 mg 02/24/21 09:00 10/28/20 08:41 Pantoprazole 40 Mg Tab PO 40 mg DAILY JANELLE Administration Prednisone 5 mg 10/24/20 08:00 10/28/20 08:41 Prednisone 5 Mg Tab PO 5 mg QAM-WM JANELLE Administration Trazodone HCl 50 mg 10/24/20 21:00 10/27/20 20:58 Trazodone Hcl 50 Mg Tab PO 50 mg HS JANELLE Administration Warfarin Sodium 1 mg 10/25/20 17:00 10/27/20 18:35 Warfarin Sodium 1 Mg Tab PO 1 mg 1700 JANELLE Administration - Exam General Appearance: awake alert Eye: anicteric sclera ENT: normocephalic atraumatic, moist mucosa Neck: symmetric, no JVD Respiratory: no wheezes, no ronchi, normal chest expansion Cardiovascular: RRR, murmur present Gastrointestinal: soft, non-tender, non-distended, normal bowel sounds Extremities: no edema Neurological: CN's grossly intact, no focal deficits PSYCH: A&O x 3 Nephrology Results - Labs Result Diagrams: 10/28/20 05:58 10/28/20 05:58 Lab results: WBC 6.2 thou/uL (4.8-10.8) 10/28/20 05:58 Hgb 8.3 g/dL (12.0-16.0) L 10/28/20 05:58 Hct 26.2 % (36.0-47.0) L 10/28/20 05:58 MCV 85.4 fL (78.0-98.0) 10/28/20 05:58 Plt Count 316 thou/uL (130-400) 10/28/20 05:58 Neutrophils % 68.6 % (42.0-75.0) 10/26/20 04:23 Band Neuts % (Manual) 13 % (5-11) H 10/24/20 07:58 Sodium 138 mmol/L (136-145) 10/28/20 05:58 Potassium 4.4 mmol/L (3.5-5.1) 10/28/20 05:58 Chloride 102 mmol/L (98-107) 10/28/20 05:58 Carbon Dioxide 28 mmol/L (22-29) 10/28/20 05:58 BUN 23 mg/dL (9.8-20.1) H 10/28/20 05:58 Creatinine 1.80 mg/dL (0.6-1.1) H 10/28/20 05:58 Glucose 74 mg/dL (70-105) 10/28/20 05:58 Lactic Acid 0.6 mmol/L (0.5-2.2) 10/23/20 23:45 Calcium 8.1 mg/dL (7.8-10.44) 10/28/20 05:58 Total Bilirubin 1.0 mg/dL (0.2-1.2) 10/25/20 04:01 AST 128 U/L (5-34) H 10/25/20 04:01 ALT 115 U/L (8-55) H 10/25/20 04:01 Alkaline Phosphatase 56 U/L (40-110) 10/25/20 04:01 Creatine Kinase 890 U/L (29-168) H 10/26/20 04:23 Serum Total Protein 4.6 g/dL (6.0-8.3) L 10/25/20 04:01 Albumin 2.2 g/dL (3.5-5.0) L 10/28/20 05:58 Urine Ketones Negative mg/dL (Negative) 10/24/20 Unknown Urine Blood 2+ (Negative) A 10/24/20 Unknown Urine Nitrite Negative (Negative) 10/24/20 Unknown Ur Leukocyte Esterase Negative Stephania/uL (Negative) 10/24/20 Unknown Urine RBC 0-3 HPF (0-3) 10/24/20 Unknown Urine WBC 0-3 HPF (0-3) 10/24/20 Unknown Ur Squamous Epith Cells None Seen HPF (0-3) 10/24/20 Unknown Urine Bacteria None Seen HPF (None Seen) 10/24/20 Unknown Sodium 138 mmol/L (136-145) 10/28/20 05:58 Potassium 4.4 mmol/L (3.5-5.1) 10/28/20 05:58 Chloride 102 mmol/L (98-107) 10/28/20 05:58 Carbon Dioxide 28 mmol/L (22-29) 10/28/20 05:58 Anion Gap 12 mmol/L (10-20) 10/28/20 05:58 BUN 23 mg/dL (9.8-20.1) H 10/28/20 05:58 Creatinine 1.80 mg/dL (0.6-1.1) H 10/28/20 05:58 Glucose 74 mg/dL (70-105) 10/28/20 05:58 Calcium 8.1 mg/dL (7.8-10.44) 10/28/20 05:58 Phosphorus 3.2 mg/dL (2.3-4.7) 10/28/20 05:58 Magnesium 1.8 mg/dL (1.6-2.6) 10/27/20 08:46 Albumin 2.2 g/dL (3.5-5.0) L 10/28/20 05:58 Nephrology AP PN - Plan ASSESSMENT: Acute kidney injury: Due to hemodynamic factors related to severe dehydration and rhabdomyolysis. Resolved. Creat is back to baseline and stable. Rhabdomyolysis: Due to acute dehydration in the patient predisposed due to medications. Hyponatremia: Due to volume depletion with appropriate ADH secretion. Resolved. Hypokalemia: Repleted Hypomagnesemia. Repleted Hypophosphatemia. repleted. Chronic kidney disease stage 4 of transplanted kidney. End-stage renal disease, status post renal transplant in 1996. Septic shock: Related to left gluteal abscess. Resolved with IV fluid and pressors. Severe metabolic acidosis: Due to acute kidney injury and use of normal saline therapy. Resolved Coumadin induced coagulopathy. Aremia: Iron deficiency and CKD. Acute drop is due to correction of h emoconcentration. ? Acute blood loss. S/p PRBC transfusion PLAN Start IV iron therapy for iron deficiency. start oral magnesium supplementation Avoid nephrotoxic agents. Continue to hold lipitor and fenofibrate. Continue current immunosuppressive therapy.
--- NOTE | 2020-10-28 12:40 | PDOC.HOSPP ---
- Subjective Encounter Date: 10/28/20 Encounter Time: 10:45 Subjective: No SOB, pain is better in rectal area. - Objective Vital Signs & Weight: Vital Signs (12 hours) Temp Pulse Resp BP Pulse Ox 10/28/20 07:02 98.4 F 49 L 18 125/65 100 10/28/20 05:06 55 L 10/28/20 04:45 98.6 F 50 L 18 124/70 90 L Weight Weight 144 lb Most Recent Monitor Data Heart Rate from ECG 61 NIBP 161/91 NIBP BP-Mean 114 Respiration from ECG 18 SpO2 98 I&O: 10/27/20 10/28/20 10/29/20 06:59 06:59 06:59 Intake Total 4021 2590 Output Total 2145 1940 Balance 1876 650 Result Diagrams: 10/28/20 05:58 10/28/20 05:58 Hospitalist ROS - Medication Medications: Active Medications Generic Name Dose Route Start Last Admin Trade Name Freq PRN Reason Stop Dose Admin Cyclosporine 100 mg 10/24/20 09:00 10/28/20 09:27 Cyclosporine, Modified 100 Mg Cap PO 100 mg BID JANELLE Administration Cyclosporine 25 mg 10/24/20 09:00 10/28/20 09:27 Cyclosporine, Modified 25 Mg Cap PO 25 mg BID JANELLE Administration Piperacillin Sod/Tazobactam 100 mls @ 200 mls/hr 10/24/20 10:00 10/28/20 12:18 Sod 2.25 gm/ Sodium Chloride IVPB 100 mls 0200,1000,1800 JANELLE Administration Levothyroxine Sodium 75 mcg 10/24/20 06:00 10/28/20 05:14 Levothyroxine Sodium 75 Mcg Tab PO 75 mcg 0600 JANELLE Administration Morphine Sulfate 1 mg 10/27/20 12:49 10/27/20 13:25 Morphine 2 Mg/Ml Vial SLOW IVP 1 mg Q4H PRN Administration Pain Mycophenolate Mofetil 1,000 mg 10/24/20 09:00 10/28/20 08:41 Mycophenolate 250 Mg Cap PO 1,000 mg BID JANELLE Administration Ondansetron HCl 4 mg 10/27/20 12:49 10/27/20 13:26 Ondansetron Pf 4 Mg/2 Ml Vial IVP 4 mg Q6H PRN Administration Nausea/Vomiting Pantoprazole Sodium 40 mg 10/25/20 09:00 10/28/20 08:41 Pantoprazole 40 Mg Tab PO 40 mg DAILY JANELLE Administration Prednisone 5 mg 10/24/20 08:00 10/28/20 08:41 Prednisone 5 Mg Tab PO 5 mg QAM-WM JANELLE Administration Trazodone HCl 50 mg 10/24/20 21:00 10/27/20 20:58 Trazodone Hcl 50 Mg Tab PO 50 mg HS JANELLE Administration Warfarin Sodium 1 mg 10/25/20 17:00 10/27/20 18:35 Warfarin Sodium 1 Mg Tab PO 1 mg 1700 JANELLE Administration Hospitalist Exam Vitals: Vital Signs (12 hours) Temp Pulse Resp BP Pulse Ox 10/28/20 07:02 98.4 F 49 L 18 125/65 100 10/28/20 05:06 55 L 10/28/20 04:45 98.6 F 50 L 18 124/70 90 L Weight Weight 144 lb Most Recent Monitor Data Heart Rate from ECG 61 NIBP 161/91 NIBP BP-Mean 114 Respiration from ECG 18 SpO2 98 General Appearance: awake alert Eye: PERRL, anicteric sclera ENT: no oropharyngeal lesions, moist mucosa Neck: supple, no JVD Heart: RRR, no murmur Respiratory: no wheezes, no rales Gastrointestinal: soft, non-tender, non-distended, normal bowel sounds Extremities: no cyanosis, no edema Neurological: cranial nerve grossly intact, no focal deficits Psychiatric: normal affect, A&O x 3 Hosp A/P (1) Sepsis Code(s): A41.9 - SEPSIS, UNSPECIFIED ORGANISM Status: Resolved Qualifiers: Sepsis type: sepsis due to unspecified organism Sepsis acute organ dysfunction status: with acute organ dysfunction Severe sepsis acute organ dysfunction type: acute renal failure Severe sepsis shock status: with septic shock (2) Perirectal abscess Code(s): K61.1 - RECTAL ABSCESS Status: Acute (3) Warfarin-induced coagulopathy Code(s): D68.32 - HEMORRHAGIC DISORD D/T EXTRINSIC CIRCULATING ANTICOAGULANTS; T45.515A - ADVERSE EFFECT OF ANTICOAGULANTS, INITIAL ENCOUNTER Status: Resolved (4) Anxiety and depression Code(s): F41.9 - ANXIETY DISORDER, UNSPECIFIED; F32.9 - MAJOR DEPRESSIVE DISORDER, SINGLE EPISODE, UNSPECIFIED Status: Chronic (5) CKD (chronic kidney disease) stage 4, GFR 15-29 ml/min Code(s): N18.4 - CHRONIC KIDNEY DISEASE, STAGE 4 (SEVERE) Status: Chronic (6) Chronic anticoagulation Code(s): Z79.01 - SNF (CURRENT) USE OF ANTICOAGULANTS Status: Chronic (7) Dyslipidemia Code(s): E78.5 - HYPERLIPIDEMIA, UNSPECIFIED Status: Chronic (8) GERD (gastroesophageal reflux disease) Code(s): K21.9 - GASTRO-ESOPHAGEAL REFLUX DISEASE WITHOUT ESOPHAGITIS Status: Chronic Qualifiers: Esophagitis presence: esophagitis presence not specified Qualified Code(s): K21.9 - Gastro-esophageal reflux disease without esophagitis (9) H/O kidney transplant Status: Chronic (10) H/O mechanical aortic valve replacement Code(s): Z95.2 - PRESENCE OF PROSTHETIC HEART VALVE Status: Chronic (11) Hiatal hernia Code(s): K44.9 - DIAPHRAGMATIC HERNIA WITHOUT OBSTRUCTION OR GANGRENE Status: Chronic (12) Hypertension Code(s): I10 - ESSENTIAL (PRIMARY) HYPERTENSION Status: Chronic Qualifiers: Hypertension type: essential hypertension Qualified Code(s): I10 - Essential (primary) hypertension (13) Hypothyroidism Code(s): E03.9 - HYPOTHYROIDISM, UNSPECIFIED Status: Chronic Qualifiers: Hypothyroidism type: acquired Qualified Code(s): E03.9 - Hypothyroidism, unspecified (14) Immunosuppressed status Code(s): D89.9 - DISORDER INVOLVING THE IMMUNE MECHANISM, UNSPECIFIED Status: Chronic - Plan is on zosyn, await wound cs (strep anginosus) geno with ckd is resolving, h/o renal transplant done in 1996, likely at her baseline renal function. h/o [facility] avr from 1998, on coumadin 2 mg, coagulopathy is getting corrected continue rejection meds including cellcept, cyclosporin and prednisone. Home dose of synthroid, trazadone. hemostable PT to mobilize as tolerated got 1 u prbc 10/26 dc plan to [facility] as she cant manage herself at home and cant help her, given immunosuppressed state she needs closed monitoring of her wound. continue sitz bath may dc anytime if she is accepted to swing bed.
[2020-10-28] MEDS ORDERED: Warfarin Sodium 2 MG TAB PO SCH (17:00)
[2020-10-28] MEDS: traZODone HCl 50 MG TAB PO SCH (21:07)
[2020-10-29] MEDS: Piperacillin/Tazobactam 2.25 GM in Sodium Chloride 0.9% 100 ML IVPB SCH ×3 (02:07→18:12)
[2020-10-29] MEDS: Levothyroxine Sodium 75 MCG TAB PO SCH (05:47)
[2020-10-29 06:18] LABS: INR-International Normal Ratio 2.7; Prothrombin Time 29.5 sec (12.0-14.7)
[2020-10-29] MEDS ORDERED: Warfarin Sodium 2 MG TAB PO SCH (07:20)
[2020-10-29] MEDS: Mycophenolate 250 MG CAP PO SCH ×2 (08:52→21:26)
[2020-10-29] MEDS: predniSONE 5 MG TAB PO SCH (08:54)
[2020-10-29] MEDS: cycloSPORINE, Modified 100 MG CAP PO SCH ×2 (08:54→21:25)
[2020-10-29] MEDS: Magnesium Oxide 400 MG TAB PO SCH (08:54)
[2020-10-29] MEDS: cycloSPORINE, Modified 25 MG CAP PO SCH ×2 (08:55→21:26)
--- NOTE | 2020-10-29 13:13 | PDOC.NEPPN ---
- Subjective Encounter Date: 10/29/20 Subjective: Seen and exained. No new problem. - Objective Vital Signs & Weight: Vital Signs (12 hours) Temp Pulse Resp BP Pulse Ox 10/29/20 07:54 98.6 F 56 L 16 143/73 H 98 Weight Weight 146 lb Most Recent Monitor Data Heart Rate from ECG 61 NIBP 161/91 NIBP BP-Mean 114 Respiration from ECG 18 SpO2 98 I&O: 10/28/20 10/29/20 10/30/20 06:59 06:59 06:59 Intake Total 2590 Output Total 1940 Balance 650 Result Diagrams: 10/28/20 05:58 10/28/20 05:58 Nephrology ROS - Medication Medications: Active Medications Generic Name Dose Route Start Last Admin Trade Name Freq PRN Reason Stop Dose Admin Cyclosporine 100 mg 10/24/20 09:00 10/29/20 08:54 Cyclosporine, Modified 100 Mg Cap PO 100 mg BID JANELLE Administration Cyclosporine 25 mg 10/24/20 09:00 10/29/20 08:55 Cyclosporine, Modified 25 Mg Cap PO 25 mg BID JANELLE Administration Piperacillin Sod/Tazobactam 100 mls @ 200 mls/hr 10/24/20 10:00 10/29/20 09:04 Sod 2.25 gm/ Sodium Chloride IVPB 100 mls 0200,1000,1800 JANELLE Administration Levothyroxine Sodium 75 mcg 10/24/20 06:00 10/29/20 05:47 Levothyroxine Sodium 75 Mcg Tab PO 75 mcg 0600 JANELLE Administration Magnesium Oxide 400 mg 10/29/20 09:00 10/29/20 08:54 Magnesium Oxide 400 Mg Tab PO 400 mg DAILY JANELLE Administration Morphine Sulfate 1 mg 10/27/20 12:49 10/27/20 13:25 Morphine 2 Mg/Ml Vial SLOW IVP 1 mg Q4H PRN Administration Pain Mycophenolate Mofetil 1,000 mg 10/24/20 09:00 10/29/20 08:52 Mycophenolate 250 Mg Cap PO 1,000 mg BID JANELLE Administration Ondansetron HCl 4 mg 10/27/20 12:49 10/27/20 13:26 Ondansetron Pf 4 Mg/2 Ml Vial IVP 4 mg Q6H PRN Administration Nausea/Vomiting Pantoprazole Sodium 40 mg 10/25/20 09:00 10/29/20 08:54 Pantoprazole 40 Mg Tab PO 40 mg DAILY JANELLE Administration Prednisone 5 mg 10/24/20 08:00 10/29/20 08:54 Prednisone 5 Mg Tab PO 5 mg QAM-WM JANELLE Administration Trazodone HCl 50 mg 10/24/20 21:00 10/28/20 21:07 Trazodone Hcl 50 Mg Tab PO 50 mg HS JANELLE Administration - Exam General Appearance: awake alert Eye: anicteric sclera ENT: normocephalic atraumatic, moist mucosa Neck: symmetric, no JVD Respiratory: no wheezes, no rales, no ronchi, normal chest expansion, no tachypnea Cardiovascular: RRR, murmur present Gastrointestinal: soft, non-tender, non-distended, normal bowel sounds Extremities: no edema Neurological: CN's grossly intact, no focal deficits PSYCH: A&O x 3 Nephrology Results - Labs Result Diagrams: 10/28/20 05:58 10/28/20 05:58 Lab results: WBC 6.2 thou/uL (4.8-10.8) 10/28/20 05:58 Hgb 8.3 g/dL (12.0-16.0) L 10/28/20 05:58 Hct 26.2 % (36.0-47.0) L 10/28/20 05:58 MCV 85.4 fL (78.0-98.0) 10/28/20 05:58 Plt Count 316 thou/uL (130-400) 10/28/20 05:58 Neutrophils % 68.6 % (42.0-75.0) 10/26/20 04:23 Band Neuts % (Manual) 13 % (5-11) H 10/24/20 07:58 Sodium 138 mmol/L (136-145) 10/28/20 05:58 Potassium 4.4 mmol/L (3.5-5.1) 10/28/20 05:58 Chloride 102 mmol/L (98-107) 10/28/20 05:58 Carbon Dioxide 28 mmol/L (22-29) 10/28/20 05:58 BUN 23 mg/dL (9.8-20.1) H 10/28/20 05:58 Creatinine 1.80 mg/dL (0.6-1.1) H 10/28/20 05:58 Glucose 74 mg/dL (70-105) 10/28/20 05:58 Lactic Acid 0.6 mmol/L (0.5-2.2) 10/23/20 23:45 Calcium 8.1 mg/dL (7.8-10.44) 10/28/20 05:58 Total Bilirubin 1.0 mg/dL (0.2-1.2) 10/25/20 04:01 AST 128 U/L (5-34) H 10/25/20 04:01 ALT 115 U/L (8-55) H 10/25/20 04:01 Alkaline Phosphatase 56 U/L (40-110) 10/25/20 04:01 Creatine Kinase 890 U/L (29-168) H 10/26/20 04:23 Serum Total Protein 4.6 g/dL (6.0-8.3) L 10/25/20 04:01 Albumin 2.2 g/dL (3.5-5.0) L 10/28/20 05:58 Urine Ketones Negative mg/dL (Negative) 10/24/20 Unknown Urine Blood 2+ (Negative) A 10/24/20 Unknown Urine Nitrite Negative (Negative) 10/24/20 Unknown Ur Leukocyte Esterase Negative Stephania/uL (Negative) 10/24/20 Unknown Urine RBC 0-3 HPF (0-3) 10/24/20 Unknown Urine WBC 0-3 HPF (0-3) 10/24/20 Unknown Ur Squamous Epith Cells None Seen HPF (0-3) 10/24/20 Unknown Urine Bacteria None Seen HPF (None Seen) 10/24/20 Unknown Sodium 138 mmol/L (136-145) 10/28/20 05:58 Potassium 4.4 mmol/L (3.5-5.1) 10/28/20 05:58 Chloride 102 mmol/L (98-107) 10/28/20 05:58 Carbon Dioxide 28 mmol/L (22-29) 10/28/20 05:58 Anion Gap 12 mmol/L (10-20) 10/28/20 05:58 BUN 23 mg/dL (9.8-20.1) H 10/28/20 05:58 Creatinine 1.80 mg/dL (0.6-1.1) H 10/28/20 05:58 Glucose 74 mg/dL (70-105) 10/28/20 05:58 Calcium 8.1 mg/dL (7.8-10.44) 10/28/20 05:58 Phosphorus 3.2 mg/dL (2.3-4.7) 10/28/20 05:58 Magnesium 1.8 mg/dL (1.6-2.6) 10/27/20 08:46 Albumin 2.2 g/dL (3.5-5.0) L 10/28/20 05:58 Nephrology AP PN - Plan ASSESSMENT: Acute kidney injury: Due to hemodynamic factors related to severe dehydration and rhabdomyolysis. Resolved. Creat is back to baseline and stable. Rhabdomyolysis: Due to acute dehydration in the patient predisposed due to medications. Hyponatremia: Due to volume depletion with appropriate ADH secretion. Resolved. Hypokalemia: Repleted Hypomagnesemia. Repleted Hypophosphatemia. repleted. Chronic kidney disease stage 4 of transplanted kidney. End-stage renal disease, status post renal transplant in 1996. On Immunisuppression with cyclosporine and MMF Septic shock: Related to left gluteal abscess. Resolved with IV fluid and pressors. Severe metabolic acidosis: Due to acute kidney injury and use of normal saline therapy. Resolved Coumadin induced coagulopathy. Aremia: Iron deficiency and CKD. Acute drop is due to correction of hemoconcentration. ? Acute blood loss. S/p PRBC transfusion PLAN Continue IV iron therapy for iron deficiency. Continue oral magnesium supplementation Avoid nephrotoxic agents. Continue to hold lipitor and fenofibrate. Continue current immunosuppressive therapy. Follow H/H and renal function.
--- NOTE | 2020-10-29 13:37 | PDOC.HOSPP ---
- Subjective Encounter Date: 10/29/20 Encounter Time: 12:15 Subjective: no pain in her perianal area is amb minimally without pain no sob - Objective Vital Signs & Weight: Vital Signs (12 hours) Temp Pulse Resp BP Pulse Ox 10/29/20 07:54 98.6 F 56 L 16 143/73 H 98 Weight Weight 146 lb Most Recent Monitor Data Heart Rate from ECG 61 NIBP 161/91 NIBP BP-Mean 114 Respiration from ECG 18 SpO2 98 I&O: 10/28/20 10/29/20 10/30/20 06:59 06:59 06:59 Intake Total 2590 Output Total 1940 Balance 650 Result Diagrams: 10/28/20 05:58 10/28/20 05:58 Hospitalist ROS - Medication Medications: Active Medications Generic Name Dose Route Start Last Admin Trade Name Freq PRN Reason Stop Dose Admin Cyclosporine 100 mg 10/24/20 09:00 10/29/20 08:54 Cyclosporine, Modified 100 Mg Cap PO 100 mg BID JANELLE Administration Cyclosporine 25 mg 10/24/20 09:00 10/29/20 08:55 Cyclosporine, Modified 25 Mg Cap PO 25 mg BID JANELLE Administration Piperacillin Sod/Tazobactam 100 mls @ 200 mls/hr 10/24/20 10:00 10/29/20 09:04 Sod 2.25 gm/ Sodium Chloride IVPB 100 mls 0200,1000,1800 JANELLE Administration Levothyroxine Sodium 75 mcg 10/24/20 06:00 10/29/20 05:47 Levothyroxine Sodium 75 Mcg Tab PO 75 mcg 0600 JANELLE Administration Magnesium Oxide 400 mg 10/29/20 09:00 10/29/20 08:54 Magnesium Oxide 400 Mg Tab PO 400 mg DAILY JANELLE Administration Morphine Sulfate 1 mg 10/27/20 12:49 10/27/20 13:25 Morphine 2 Mg/Ml Vial SLOW IVP 1 mg Q4H PRN Administration Pain Mycophenolate Mofetil 1,000 mg 10/24/20 09:00 10/29/20 08:52 Mycophenolate 250 Mg Cap PO 1,000 mg BID JANELLE Administration Ondansetron HCl 4 mg 10/27/20 12:49 10/27/20 13:26 Ondansetron Pf 4 Mg/2 Ml Vial IVP 4 mg Q6H PRN Administration Nausea/Vomiting Pantoprazole Sodium 40 mg 10/25/20 09:00 10/29/20 08:54 Pantoprazole 40 Mg Tab PO 40 mg DAILY JANELLE Administration Prednisone 5 mg 10/24/20 08:00 10/29/20 08:54 Prednisone 5 Mg Tab PO 5 mg QAM-WM JANELLE Administration Trazodone HCl 50 mg 10/24/20 21:00 10/28/20 21:07 Trazodone Hcl 50 Mg Tab PO 50 mg HS JANELLE Administration Hospitalist Exam Vitals: Vital Signs (12 hours) Temp Pulse Resp BP Pulse Ox 10/29/20 07:54 98.6 F 56 L 16 143/73 H 98 Weight Weight 146 lb Most Recent Monitor Data Heart Rate from ECG 61 NIBP 161/91 NIBP BP-Mean 114 Respiration from ECG 18 SpO2 98 General Appearance: NAD, awake alert Eye: PERRL, anicteric sclera ENT: no oropharyngeal lesions, moist mucosa Neck: supple, no JVD Heart: RRR, no murmur Respiratory: no wheezes, no rales, no ronchi Gastrointestinal: soft, non-tender, non-distended, normal bowel sounds Extremities: no cyanosis, no edema Neurological: cranial nerve grossly intact, no focal deficits Psychiatric: normal affect, A&O x 3 Hosp A/P (1) Sepsis Code(s): A41.9 - SEPSIS, UNSPECIFIED ORGANISM Status: Resolved Qualifiers: Sepsis type: sepsis due to unspecified organism Sepsis acute organ dysfunction status: with acute organ dysfunction Severe sepsis acute organ dysfunction type: acute renal failure Severe sepsis shock status: with septic shock (2) Perirectal abscess Code(s): K61.1 - RECTAL ABSCESS Status: Acute (3) Warfarin-induced coagulopathy Code(s): D68.32 - HEMORRHAGIC DISORD D/T EXTRINSIC CIRCULATING ANTICOAGULANTS; T45.515A - ADVERSE EFFECT OF ANTICOAGULANTS, INITIAL ENCOUNTER Status: Resolved (4) Anxiety and depression Code(s): F41.9 - ANXIETY DISORDER, UNSPECIFIED; F32.9 - MAJOR DEPRESSIVE DISORDER, SINGLE EPISODE, UNSPECIFIED Status: Chronic (5) CKD (chronic kidney disease) stage 4, GFR 15-29 ml/min Code(s): N18.4 - CHRONIC KIDNEY DISEASE, STAGE 4 (SEVERE) Status: Chronic (6) Chronic anticoagulation Code(s): Z79.01 - MCFP (CURRENT) USE OF ANTICOAGULANTS Status: Chronic (7) Dyslipidemia Code(s): E78.5 - HYPERLIPIDEMIA, UNSPECIFIED Status: Chronic (8) GERD (gastroesophageal reflux disease) Code(s): K21.9 - GASTRO-ESOPHAGEAL REFLUX DISEASE WITHOUT ESOPHAGITIS Status: Chronic Qualifiers: Esophagitis presence: esophagitis presence not specified Qualified Code(s): K21.9 - Gastro-esophageal reflux disease without esophagitis (9) H/O kidney transplant Status: Chronic (10) H/O mechanical aortic valve replacement Code(s): Z95.2 - PRESENCE OF PROSTHETIC HEART VALVE Status: Chronic (11) Hiatal hernia Code(s): K44.9 - DIAPHRAGMATIC HERNIA WITHOUT OBSTRUCTION OR GANGRENE Status: Chronic (12) Hypertension Code(s): I10 - ESSENTIAL (PRIMARY) HYPERTENSION Status: Chronic Qualifiers: Hypertension type: essential hypertension Qualified Code(s): I10 - Essential (primary) hypertension (13) Hypothyroidism Code(s): E03.9 - HYPOTHYROIDISM, UNSPECIFIED Status: Chronic Qualifiers: Hypothyroidism type: acquired Qualified Code(s): E03.9 - Hypothyroidism, unspecified (14) Immunosuppressed status Code(s): D89.9 - DISORDER INVOLVING THE IMMUNE MECHANISM, UNSPECIFIED Status: Chronic - Plan is on zosyn, await wound cs (strep anginosus) are taking long to come up yet. geno with ckd is resolved, h/o renal transplant done in 1996, now at her baseline renal function, her primary local energy conservation director is . h/o [facility] avr from 1998, on coumadin 3 mg, coagulopathy on arrival got corrected continue rejection meds including cellcept, cyclosporin and prednisone. Home dose of synthroid, trazadone. hemostable PT to mobilize as tolerated got 1 u prbc 10/26 dc plan to [place] [facility] as she cant manage herself at home and cant help her, given immunosuppressed state she needs closed monitoring of her wound. continue sitz bath may dc anytime if she is accepted to swing bed.
[2020-10-29] MEDS: Warfarin Sodium 3 MG TAB PO SCH (18:06)
[2020-10-29] MEDS: traZODone HCl 50 MG TAB PO SCH (21:26)
[2020-10-30] MEDS: Piperacillin/Tazobactam 2.25 GM in Sodium Chloride 0.9% 100 ML IVPB SCH (04:39)
[2020-10-30] MEDS: Levothyroxine Sodium 75 MCG TAB PO SCH (05:48)
[2020-10-30 06:21] LABS: Hemoglobin 8.6 g/dL (12.0-16.0); Mean Corpuscular HGB CONC 31.7 g/dL (32.0-36.0); Mean Corpuscular Hemoglobin 27.3 pg (27.0-31.0); Platelet Count 318 thou/uL (130-400); RBC Distribution Width 17.3 % (11.5-14.5); Red Blood Cell (RBC) Count 3.14 mill/uL (4.20-5.40); White Blood Cell (WBC) Count 7.9 thou/uL (4.8-10.8)
[2020-10-30 06:28] LABS: INR-International Normal Ratio 2.3; Prothrombin Time 25.5 sec (12.0-14.7)
[2020-10-30 06:51] LABS: Albumin 2.4 g/dL (3.5-5.0); Anion Gap 13 mmol/L (10-20); BUN (Urea Nitrogen) 24 mg/dL (9.8-20.1); BUN/Creatinine Ratio 12.31; Calc. Creatinine Clearance 32 mL/min (70-130); Calcium 8.4 mg/dL (7.8-10.44); Carbon Dioxide 25 mmol/L (22-29); Chloride 104 mmol/L (98-107); Glucose 71 mg/dL (70-105); Potassium 4.2 mmol/L (3.5-5.1); Sodium 138 mmol/L (136-145)
[2020-10-30] MEDS: predniSONE 5 MG TAB PO SCH (09:24)
[2020-10-30] MEDS: Magnesium Oxide 400 MG TAB PO SCH (09:24)
[2020-10-30] MEDS: cycloSPORINE, Modified 100 MG CAP PO SCH (09:24)
[2020-10-30] MEDS: Mycophenolate 250 MG CAP PO SCH (09:27)
[2020-10-30] MEDS: cycloSPORINE, Modified 25 MG CAP PO SCH (09:27)
--- NOTE | 2020-10-30 10:16 | PRG ---
DATE OF SERVICE: 10/30/2020 OBJECTIVE: VITAL SIGNS: Temperature 98, pulse 47, respiratory rate 16, blood pressure 120/72. GENERAL: She is awake, alert, responsive. No shortness of breath. CHEST: No wheezing, no crackles. CARDIAC: Normal S1 and S2. No gallops. ABDOMEN: No masses. ASSESSMENT AND PLAN: Left gluteal abscess, Streptococcus, anaerobe, renal failure, tobacco abuse. Pulmonary jones, she is stable to be transferred out to the rehab. She is already on home medication. Pulmonary is going to follow at a distance. Job ID: [id number]
[2020-10-30] MEDS ORDERED: Piperacillin/Tazobactam 2.25 GM in Sodium Chloride 0.9% 100 ML IVPB SCH (13:00)
--- NOTE | 2020-10-30 15:22 | PDOC.NEPPN ---
- Subjective Encounter Date: 10/30/20 Subjective: Seen and examined. No new problem. - Objective Vital Signs & Weight: Vital Signs (12 hours) Temp Pulse Resp BP Pulse Ox 10/30/20 07:40 98.6 F 47 L 16 149/72 H 10/30/20 04:52 98.4 F 47 L 16 141/70 H 95 Weight Weight 146 lb Most Recent Monitor Data Heart Rate from ECG 61 NIBP 161/91 NIBP BP-Mean 114 Respiration from ECG 18 SpO2 98 I&O: 10/29/20 10/30/20 10/31/20 06:59 06:59 06:59 Intake Total 920 Balance 920 Result Diagrams: 10/30/20 05:51 10/30/20 05:51 Nephrology ROS - Medication Medications: Active Medications Generic Name Dose Route Start Last Admin Trade Name Freq PRN Reason Stop Dose Admin Cyclosporine 100 mg 10/24/20 09:00 10/30/20 09:24 Cyclosporine, Modified 100 Mg Cap PO 100 mg BID JANELLE Administration Cyclosporine 25 mg 10/24/20 09:00 10/30/20 09:27 Cyclosporine, Modified 25 Mg Cap PO 25 mg BID JANELLE Administration Piperacillin Sod/Tazobactam 100 mls @ 200 mls/hr 10/30/20 13:00 10/30/20 13:40 Sod 2.25 gm/ Sodium Chloride IVPB 100 mls 0500,1300,2100 JANELLE Administration Levothyroxine Sodium 75 mcg 10/24/20 06:00 10/30/20 05:48 Levothyroxine Sodium 75 Mcg Tab PO 75 mcg 0600 JANELLE Administration Magnesium Oxide 400 mg 10/29/20 09:00 10/30/20 09:24 Magnesium Oxide 400 Mg Tab PO 400 mg DAILY JANELLE Administration Morphine Sulfate 1 mg 10/27/20 12:49 10/27/20 13:25 Morphine 2 Mg/Ml Vial SLOW IVP 1 mg Q4H PRN Administration Pain Mycophenolate Mofetil 1,000 mg 10/24/20 09:00 10/30/20 09:27 Mycophenolate 250 Mg Cap PO 1,000 mg BID JANELLE Administration Ondansetron HCl 4 mg 10/27/20 12:49 10/27/20 13:26 Ondansetron Pf 4 Mg/2 Ml Vial IVP 4 mg Q6H PRN Administration Nausea/Vomiting Pantoprazole Sodium 40 mg 10/25/20 09:00 10/30/20 09:24 Pantoprazole 40 Mg Tab PO 40 mg DAILY JANELLE Administration Prednisone 5 mg 10/24/20 08:00 10/30/20 09:24 Prednisone 5 Mg Tab PO 5 mg QAM-WM JANELLE Administration Trazodone HCl 50 mg 10/24/20 21:00 10/29/20 21:26 Trazodone Hcl 50 Mg Tab PO 50 mg HS JANELLE Administration Warfarin Sodium 3 mg 10/29/20 17:00 10/29/20 18:06 Warfarin Sodium 3 Mg Tab PO 3 mg 1700 JANELLE Administration - Exam General Appearance: awake alert Eye: anicteric sclera ENT: normocephalic atraumatic Neck: symmetric, no JVD Respiratory: no wheezes, no rales, no ronchi, normal chest expansion, no tachypnea Cardiovascular: RRR, murmur present Gastrointestinal: soft, non-tender, non-distended Extremities: no edema Neurological: CN's grossly intact PSYCH: A&O x 3 Nephrology Results - Labs Result Diagrams: 10/30/20 05:51 10/30/20 05:51 Lab results: WBC 7.9 thou/uL (4.8-10.8) 10/30/20 05:51 Hgb 8.6 g/dL (12.0-16.0) L 10/30/20 05:51 Hct 27.0 % (36.0-47.0) L 10/30/20 05:51 MCV 86.0 fL (78.0-98.0) 10/30/20 05:51 Plt Count 318 thou/uL (130-400) 10/30/20 05:51 Neutrophils % 68.6 % (42.0-75.0) 10/26/20 04:23 Band Neuts % (Manual) 13 % (5-11) H 10/24/20 07:58 Sodium 138 mmol/L (136-145) 10/30/20 05:51 Potassium 4.2 mmol/L (3.5-5.1) 10/30/20 05:51 Chloride 104 mmol/L (98-107) 10/30/20 05:51 Carbon Dioxide 25 mmol/L (22-29) 10/30/20 05:51 BUN 24 mg/dL (9.8-20.1) H 10/30/20 05:51 Creatinine 1.95 mg/dL (0.6-1.1) H 10/30/20 05:51 Glucose 71 mg/dL (70-105) 10/30/20 05:51 Lactic Acid 0.6 mmol/L (0.5-2.2) 10/23/20 23:45 Calcium 8.4 mg/dL (7.8-10.44) 10/30/20 05:51 Total Bilirubin 1.0 mg/dL (0.2-1.2) 10/25/20 04:01 AST 128 U/L (5-34) H 10/25/20 04:01 ALT 115 U/L (8-55) H 10/25/20 04:01 Alkaline Phosphatase 56 U/L (40-110) 10/25/20 04:01 Creatine Kinase 890 U/L (29-168) H 10/26/20 04:23 Serum Total Protein 4.6 g/dL (6.0-8.3) L 10/25/20 04:01 Albumin 2.4 g/dL (3.5-5.0) L 10/30/20 05:51 Urine Ketones Negative mg/dL (Negative) 10/24/20 Unknown Urine Blood 2+ (Negative) A 10/24/20 Unknown Urine Nitrite Negative (Negative) 10/24/20 Unknown Ur Leukocyte Esterase Negative Stephania/uL (Negative) 10/24/20 Unknown Urine RBC 0-3 HPF (0-3) 10/24/20 Unknown Urine WBC 0-3 HPF (0-3) 10/24/20 Unknown Ur Squamous Epith Cells None Seen HPF (0-3) 10/24/20 Unknown Urine Bacteria None Seen HPF (None Seen) 10/24/20 Unknown Sodium 138 mmol/L (136-145) 10/30/20 05:51 Potassium 4.2 mmol/L (3.5-5.1) 10/30/20 05:51 Chloride 104 mmol/L (98-107) 10/30/20 05:51 Carbon Dioxide 25 mmol/L (22-29) 10/30/20 05:51 Anion Gap 13 mmol/L (10-20) 10/30/20 05:51 BUN 24 mg/dL (9.8-20.1) H 10/30/20 05:51 Creatinine 1.95 mg/dL (0.6-1.1) H 10/30/20 05:51 Glucose 71 mg/dL (70-105) 10/30/20 05:51 Calcium 8.4 mg/dL (7.8-10.44) 10/30/20 05:51 Phosphorus 3.0 mg/dL (2.3-4.7) 10/30/20 05:51 Magnesium 1.8 mg/dL (1.6-2.6) 10/27/20 08:46 Albumin 2.4 g/dL (3.5-5.0) L 10/30/20 05:51 Nephrology AP PN - Plan ASSESSMENT: Acute kidney injury: Due to hemodynamic factors related to severe dehydration and rhabdomyolysis. Resolved. Creat is back to baseline and stable though creat is trending up. Rhabdomyolysis: Due to acute dehydration in the patient predisposed due to medications. Hyponatremia: Due to volume depletion with appropriate ADH secretion. Resolved. Hypokalemia: Repleted Hypomagnesemia. Repleted Hypophosphatemia. repleted. Chronic kidney disease stage 4 of transplanted kidney. End-stage renal disease, status post renal transplant in 1996. On Immunisuppression with cyclosporine and MMF Septic shock: Related to left gluteal abscess. Resolved with IV fluid and pressors. Severe metabolic acidosis: Due to acute kidney injury and use of normal saline therapy. Resolved Coumadin induced coagulopathy. Aremia: Iron deficiency and CKD. Acute drop is due to correction of hemoconcentration. ? Acute blood loss. S/p PRBC transfusion PLAN Butler oral intake advised Continue oral magnesium supplementation Avoid nephrotoxic agents. Continue to hold lipitor and fenofibrate. Continue current immunosuppressive therapy. Follow H/H and renal function. Can be discharged from Nephrology point of view. Need to follow up with regular Machine Zipper Trimmer on discharge.
[2020-10-30] MEDS: Warfarin Sodium 3 MG TAB PO SCH (16:59)
[2020-10-30 19:17] VITALS: BP 142/70; TEMP 97.9
--- NOTE | 2020-11-01 18:45 | PQF ---
Dear : Hussein Silverio Date Please exercise your independent, professional judgment in responding to the clarification form. Clinical indicators are provided on the bottom of this form for your review Can you please further clarify the procedure being performed to the patient? Please check appropriate box(es): [ x ] Incision and Drainage only (No Debridement): Depth: [ x ] Skin [ x ] Subcutaneous [ ] Fascia [ ] Muscle [ ] Tendon [ ] Bone [ ] Other procedure, please specify: [ ] Unable to determine Physician Signature: Date/Time: For continuity of documentation, please document condition throughout progress notes and discharge summary. Thank You. To be completed by CDI/Coding staff for physician review: Present Clinical Indicators - Signs / Symptoms / Labs Results and Location in Medical Record [ x ] Incision and drainage of 4x3 cm left perianal/gluteal abscess OP report pg.1 [ x ] 11 scalpel incise the dome of this abscess in a crucifix fashion OP report pg.1 [ x ] Curved hemostat to enter the abscess cavity OP report pg.1 [ x ] Narcotic core debris were evacuated using suction OP report pg.1 Present Risk Factors Results and Location in Medical Record [ x ] 4x3 cm left perianal/gluteal abscess OP report pg.1 [ x ] septicemia OP report pg.1 Present Treatments Results and Location in Medical Record [ x ] Incision and drainage of 4x3 cm left perianal/gluteal abscess OP report pg.1 [ x ] IV Fluids MAR [ x ] Cefepime 2gm IV MAR [ x ] Vancomycin 1gm IV MAR [ x ] Zosyn 2.25gm IV MAR CDS/Bank Advisor Signature: Rj Figueroa Phone #: [phone] Date/Time: 11/01/20 This is a permanent part of the Medical Record [facility]
--- NOTE | 2020-11-03 21:16 | PDOC.DS.DS ---
Provider Date of Admission: 10/24/20 02:07 Date of Discharge: 11/03/20 Admitting Provider: Susan Paulino MD Consultations: General Surgery (Dr. Hussein gregg) Primary Care Physician: ANA ROSA [facility] Course Hospital Course: Discharge Diagnoses: 1. Left perianal/gluteal abscess s/p incision and drainage 2. KAMERON on CKD 3. Hypomagnesemia 4. Hypophosphatemia Brief HPI: This is a 60 year old female who presented to the ER with left buttock pain. She apparently had a pimple that popped and drained pus. She was started on antibiotics and admitted for further workup. Hospital Course: The patient underwent incision and drainage of her left perianal/gluteal abscess. Her hospital course was complicated by anemia with a hemoglobin of 6.7. She received one unit of PRBC with improvement in her hemoglobin to 8.6. The patient also had acute kidney injury with creatinine up to 2.52, but this resolved with fluids. Nephrology is following as well. She was resumed on her transplant medications with no complications. She was discharged with augmentin for two more days to complete seven days of antibiotics. She will need outpatient wound care with dressing changes daily. She will need sitz baths three times daily. Right renal cyst/Right adrenal nodule: this was noted incidentally on CT abdomen. This needs outpatient follow up. Hypertension: the patient's hydrochlorothiazide was discontinued due to KAMERON. SHe was switched to metoprolol and will continue imdur. Pertinent Studies: CT abdomen: soft tissue and fluid desnity which may reflect developing left perianal fistula or perianal phlegmon. Layered debris within the gallbladder may reflect gallbladder sludge. Atrophic kidneys with right renal cyst. Left adrenal nodule. Colonic diverticulsosi. Left lower quadrant transplant kidney. Resuscitation Status: 10/24/20 02:52 Resuscitation Status Routine Resuscitation Status: FULL: Full Resuscitation Lab Results: 10/30/20 05:51 10/30/20 05:51 Microbiology - Entire Visit 10/24/20 10:57 Buttock - Abscess Bacterial Culture - Final Streptococcus anginosus Group Bacteroides fragilis Vitals: Weight Weight 146 lb Most Recent Monitor Data Heart Rate from ECG 61 NIBP 161/91 NIBP BP-Mean 114 Respiration from ECG 18 SpO2 98 Physical Exam: The patient was seen and examined on the day of discharge. General Appearance: NAD, awake alert Eye: PERRL, anicteric sclera ENT: normocephalic atraumatic, no oropharyngeal lesions Neck: no JVD Respiratory: CTAB, no wheezes, no rales, no ronchi Cardiovascular: RRR, no murmur, no gallops, no rubs Gastrointestinal: soft, non-tender, non-distended, normal bowel sounds Extremities: no cyanosis, no clubbing, no edema Skin: normal turgor, no lesions, no rashes Neurological: cranial nerve grossly intact, normal sensation to touch, no weakness, no focal deficits Musculoskeletal: normal tone, normal strength, no muscle wasting PSYCH: normal affect, normal behavior, A&O x 3 Problem Time Spent in discharge related activities (mins): 30 Plan Prescriptions: Amoxicillin/Potassium Clav [Augmentin 875-125 Tablet] 1 each PO BID #4 tablet Metoprolol Succinate 25 mg PO DAILY #30 tab.er.24h Pantoprazole [Protonix] 40 mg PO DAILY #30 tab Home Medications: Medication Instructions Recorded Confirmed Type Atorvastatin Calcium [Lipitor] 40 mg PO DAILY 12/02/18 10/30/20 History Isosorbide Mononitrate [Imdur] 60 mg PO DAILY 12/02/18 10/30/20 History Levothyroxine Sodium 75 mg PO DAILY 12/02/18 10/30/20 History Mycophenolate [Cellcept] 1,000 mg PO BID 12/02/18 10/30/20 History cycloSPORINE, Modified 25 mg PO BID 12/02/18 10/30/20 History [Cyclosporine Modified] cycloSPORINE, Modified 100 mg PO BID 12/02/18 10/30/20 History [Cyclosporine Modified] predniSONE [Prednisone] 5 mg PO DAILY 12/02/18 10/30/20 History Amiodarone [Cordarone] 200 mg PO DAILY 10/24/20 10/30/20 History Escitalopram Oxalate [Lexapro] 10 mg PO DAILY 10/24/20 10/30/20 History Fenofibrate,Micronized 67 mg PO DAILY 10/24/20 10/30/20 History [Fenofibrate] Omeprazole 20 mg PO DAILY 10/24/20 10/30/20 History Warfarin Sodium [Jantoven] 3 mg PO DAILY 10/24/20 10/30/20 History traZODone HCl [Trazodone HCl] 50 mg PO DAILY 10/24/20 10/30/20 History Amoxicillin/Potassium Clav 1 each PO BID #4 tablet 10/30/20 10/30/20 Rx [Augmentin 875-125 Tablet] Metoprolol Succinate 25 mg PO DAILY #30 tab.er.24h 10/30/20 10/30/20 Rx Pantoprazole [Protonix] 40 mg PO DAILY #30 tab 10/30/20 10/30/20 Rx Allergies: ciprofloxacin Allergy (Verified 11/22/19 05:02) codeine Allergy (Verified 10/24/20 06:43) Opioids-Meperidine and Related Allergy (Verified 11/22/19 05:02) Discharge Instructions:: You presented with left buttock pain. You had incision and drainage done of an abscess. Please take augmentin for two more days to complete a seven day course of antibiotics. Continue with outpatient wound care and change your dressing and packing daily. Continue Sitz Baths TID. Pack your wound with multidex powder and moist gauze packing and cover with foam dressing. YOu have a right renal cyst. Please have this monitored as an outpatient. You also have an adrenal nodule. Get an MRI of the abdomen as an outpatient. For your hypertension, stop the metoprolol - HCTZ and switch to just metoprolol. Continue with imdur. Follow up with your PCP in week and your air analyst as an outpatient. Activity:: Activity as Tolerated Referrals: Deniz Stacy MD [Active] - Jennifer Shah MD [Active] - Hussein Silverio DO [Active] - LEXUS JO & [Primary Care Provider] - Disposition: [facility] Quality CORE MEASURES:: N/A
== END 2020-10-30 17:16 | disposition swing bed (61) | DRG 853 ==
LOC: ERS 23:18 → ERHOLD 10-24 02:07 → CCU 10-24 05:57 → T4-B 10-27 16:54
PROVIDERS: ADMIT Internal Medicine; ATTEND Internal Medicine
PROC: 3E033XZ Introduction of Vasopressor into Peripheral Vein, Percutaneous Approach (ICD-10-PCS; principal; 2020-10-24)
PROC: 30233N1 Transfusion of Nonautologous Red Blood Cells into Peripheral Vein, Percutaneous Approach (ICD-10-PCS; 2020-10-24)
PROC: 0J990ZZ Drainage of Buttock Subcutaneous Tissue and Fascia, Open Approach (ICD-10-PCS; 2020-10-24)
DX: A40.8 Other streptococcal sepsis (principal); R65.21 Severe sepsis with septic shock; N18.4 Chronic kidney disease, stage 4 (severe); L03.317 Cellulitis of buttock; M62.82 Rhabdomyolysis; L02.31 Cutaneous abscess of buttock; Z94.0 Kidney transplant status; E87.2 Acidosis; E87.1 Hypo-osmolality and hyponatremia; K61.1 Rectal abscess; D68.32 Hemorrhagic disorder due to extrinsic circulating anticoagulants; K64.4 Residual hemorrhoidal skin tags; E03.9 Hypothyroidism, unspecified; K44.9 Diaphragmatic hernia without obstruction or gangrene; K21.9 Gastro-esophageal reflux disease without esophagitis; E78.00 Pure hypercholesterolemia, unspecified; F41.9 Anxiety disorder, unspecified; I25.10 Atherosclerotic heart disease of native coronary artery without angina pectoris; T45.515A Adverse effect of anticoagulants, initial encounter; D50.9 Iron deficiency anemia, unspecified; D89.9 Disorder involving the immune mechanism, unspecified; F17.210 Nicotine dependence, cigarettes, uncomplicated; I12.9 Hypertensive chronic kidney disease with stage 1 through stage 4 chronic kidney disease, or unspecified chronic kidney disease; E87.6 Hypokalemia; E83.42 Hypomagnesemia; E83.39 Other disorders of phosphorus metabolism; F32.9 Major depressive disorder, single episode, unspecified; Z88.1 Allergy status to other antibiotic agents; Z88.5 Allergy status to narcotic agent; Z95.2 Presence of prosthetic heart valve; Z79.01 Long term (current) use of anticoagulants
CPT/HCPCS: 36415; 36416; 36430; 51702; 74176; 80053; 80069; 80158; 80202; 81001; 82550; 82570; 82728; 83540; 83550; 83605; 83735; 84156; 84300; 84540; 85025; 85027; 85610; 85730; 86850; 86900; 86901; 87070; 87076; 87205; 93005; 96365; 96366; 96367; 96368; 96375; C9132; J0692; J1650; J2250; J2270; J2405; J2543; J2916; J3010; J3370; J3430; J3475; J3490; J7050; J7070; J7502; J7512; J7515; J7517; P9016; U0002

== ENCOUNTER 2022-12-17 19:23 | Inpatient (IN) | payer MEDICARE ==
[2022-12-17 20:16] VITALS: BMI 20.2
[2022-12-17] MEDS: Octreotide Acetate 1,250 MCG in Sodium Chloride 0.9% 250 ML 250 ML IVPB SCH (22:12)
[2022-12-18] MEDS: HYDROcodone/Acetaminophen 10/325 mg Tablet PO PRN ×4 (01:23→20:10)
[2022-12-18 05:30] LABS: #Eosinphils 0.1 thou/uL (0.0-0.7); #Lymphocytes 0.9 thou/uL (1.20-3.40); #Monocytes 0.4 thou/uL (0.11-0.59); #Neutrophils 2.4 thou/uL (1.40-6.50); %Basophils 0.8 % (0.0-1.0); %Eosinophils 2.4 % (0.0-10.0); %Lymphocytes 23.2 % (21.0-51.0); %Monocytes 11.3 % (0.0-10.0); %Neutrophils 62.3 % (42.0-75.0); Hemoglobin 8.2 g/dL (12.0-16.0); Mean Corpuscular HGB CONC 31.7 g/dL (32.0-36.0); Mean Corpuscular Hemoglobin 29.6 pg (27.0-31.0); Mean Corpuscular Volume 93.2 fl (78.0-98.0); Mean Platelet Volume 10.1 fL (7.4-10.4); Platelet Count 244 10x3/uL (130-400); RBC Distribution Width 17.2 % (11.5-14.5); Red Blood Cell (RBC) Count 2.76 mill/uL (4.20-5.40); White Blood Cell (WBC) Count 3.8 10x3/uL (4.8-10.8)
[2022-12-18 05:41] LABS: ALT (SGPT) 11 U/L (8-55); AST (SGOT) 20 U/L (5-34); Albumin 3.1 g/dL (3.4-4.8); Alkaline Phosphatase 64 U/L (40-110); Anion Gap 12 mmol/L (10-20); BUN (Urea Nitrogen) 19 mg/dL (9.8-20.1); Bilirubin, Total 0.3 mg/dL (0.2-1.2); Calc. Creatinine Clearance 37 mL/min (70-130); Calcium 9.1 mg/dL (7.8-10.44); Carbon Dioxide 22 mmol/L (23-31); Chloride 109 mmol/L (98-107); Estimated GFR 44; Globulin 2.3 g/dL (2.4-3.5); Glucose 120 mg/dL (80-115); Potassium 4.4 mmol/L (3.5-5.1); Protein, Total 5.4 g/dL (5.8-8.1); Sodium 139 mmol/L (136-145)
[2022-12-18] MEDS: Levothyroxine Sodium 75 MCG TAB PO SCH (06:18)
[2022-12-18] MEDS: Ferrous Sulfate 325 MG TAB PO SCH (08:50)
[2022-12-18] MEDS: Amiodarone 200 MG TAB PO SCH (08:51)
[2022-12-18] MEDS: Gabapentin 100 MG CAP PO SCH ×3 (08:51→20:10)
[2022-12-18] MEDS: predniSONE 5 MG TAB PO SCH (08:52)
[2022-12-18] MEDS: cycloSPORINE, Modified 100 MG CAP PO SCH ×2 (08:52→20:08)
[2022-12-18] MEDS: Pantoprazole 40 MG VIAL IVP SCH ×2 (08:52→20:09)
[2022-12-18] MEDS: Escitalopram Oxalate 10 mg Tablet PO SCH (08:52)
[2022-12-18] MEDS ORDERED: Warfarin Sodium 5 MG TAB PO SCH ×2 (17:30)
[2022-12-18] MEDS ORDERED: WARFARIN PO PRN (17:30)
[2022-12-18 17:51] LABS: INR-International Normal Ratio 1.8; Prothrombin Time 21.5 sec (12.0-14.7)
[2022-12-18 17:52] LABS: PTT 37.7 sec (22.9-36.1)
[2022-12-18] MEDS ORDERED: GoLYTELY 4,000 ml Bottle PO SCH (20:00)
[2022-12-18] MEDS: Mycophenolate 250 MG CAP PO SCH (20:09)
[2022-12-18] MEDS: Atorvastatin Calcium 40 MG TAB PO SCH (20:10)
[2022-12-18] MEDS: Octreotide Acetate 1,250 MCG in Sodium Chloride 0.9% 250 ML 250 ML IVPB SCH (23:58)
[2022-12-19] MEDS: Levothyroxine Sodium 75 MCG TAB PO SCH (05:20)
[2022-12-19 06:56] LABS: #Basophils 0.1 thou/uL (0.0-0.2); #Eosinphils 0.2 thou/uL (0.0-0.7); #Lymphocytes 1.9 thou/uL (1.20-3.40); #Monocytes 0.8 thou/uL (0.11-0.59); #Neutrophils 4.8 thou/uL (1.40-6.50); %Basophils 1.4 % (0.0-1.0); %Eosinophils 2.6 % (0.0-10.0); %Lymphocytes 24.1 % (21.0-51.0); %Monocytes 10.7 % (0.0-10.0); %Neutrophils 61.2 % (42.0-75.0); Hemoglobin 7.5 g/dL (12.0-16.0); Mean Corpuscular HGB CONC 32.1 g/dL (32.0-36.0); Mean Corpuscular Hemoglobin 29.9 pg (27.0-31.0); Mean Corpuscular Volume 92.9 fl (78.0-98.0); Mean Platelet Volume 9.2 fL (7.4-10.4); Platelet Count 363 10x3/uL (130-400); RBC Distribution Width 17.2 % (11.5-14.5); Red Blood Cell (RBC) Count 2.52 mill/uL (4.20-5.40); White Blood Cell (WBC) Count 7.8 10x3/uL (4.8-10.8)
[2022-12-19 07:08] LABS: INR-International Normal Ratio 1.8; Prothrombin Time 21.9 sec (12.0-14.7)
[2022-12-19 07:15] LABS: ALT (SGPT) 15 U/L (8-55); AST (SGOT) 21 U/L (5-34); Albumin 3.5 g/dL (3.4-4.8); Alkaline Phosphatase 67 U/L (40-110); Anion Gap 22 mmol/L (10-20); BUN (Urea Nitrogen) 21 mg/dL (9.8-20.1); Bilirubin, Total 0.5 mg/dL (0.2-1.2); Calc. Creatinine Clearance 35 mL/min (70-130); Calcium 8.6 mg/dL (7.8-10.44); Carbon Dioxide 17 mmol/L (23-31); Chloride 103 mmol/L (98-107); Estimated GFR 41; Globulin 2.5 g/dL (2.4-3.5); Glucose 168 mg/dL (80-115); Magnesium 1.8 mg/dL (1.6-2.6); Phosphorus 3.8 mg/dL (2.3-4.7); Sodium 138 mmol/L (136-145)
[2022-12-19] MEDS ORDERED: fentaNYL 50 mcg/mL 1 mL Vial ONE ×2 (09:00→09:49)
[2022-12-19] MEDS ORDERED: Lidocaine 1% PF 5 ML VIAL ONE (09:11)
[2022-12-19] MEDS ORDERED: Phenylephrine 10 MG/ML VIAL ONE (09:11)
[2022-12-19] MEDS ORDERED: PROPOFOL 200 MG/20 ML VIAL ONE (09:11)
[2022-12-19] MEDS ORDERED: Vasopressin 20 UNITS/ML VIAL ONE (09:24)
[2022-12-19] MEDS ORDERED: Morphine Sulfate 2 MG/ML SYRINGE SLOW IVP PRN (09:48)
[2022-12-19] MEDS ORDERED: Ondansetron HCl/PF 4 MG/2 ML Vial IVP PRN (09:48)
[2022-12-19] MEDS ORDERED: Promethazine HCl 25 MG/ML VIAL IM PRN (09:48)
[2022-12-19] MEDS ORDERED: HYDROmorphone 2 MG/ML VIAL SLOW IVP PRN (09:48)
[2022-12-19] MEDS: Pantoprazole 40 MG VIAL IVP SCH ×2 (10:49→20:30)
[2022-12-19] MEDS: Mycophenolate 250 MG CAP PO SCH ×2 (10:50→20:30)
[2022-12-19] MEDS: cycloSPORINE, Modified 100 MG CAP PO SCH ×2 (10:51→20:30)
[2022-12-19] MEDS: Gabapentin 100 MG CAP PO SCH ×3 (10:51→20:30)
[2022-12-19] MEDS: predniSONE 5 MG TAB PO SCH (10:51)
[2022-12-19] MEDS: Escitalopram Oxalate 10 mg Tablet PO SCH (10:51)
[2022-12-19] MEDS: Amiodarone 200 MG TAB PO SCH (10:54)
[2022-12-19] MEDS: Ferrous Sulfate 325 MG TAB PO SCH (10:54)
[2022-12-19] MEDS: HYDROcodone/Acetaminophen 10/325 mg Tablet PO PRN ×2 (15:53→20:31)
[2022-12-19] MEDS ORDERED: Warfarin Sodium 5 MG TAB PO SCH (17:00)
[2022-12-19] MEDS: Atorvastatin Calcium 40 MG TAB PO SCH (20:31)
[2022-12-20] MEDS: HYDROcodone/Acetaminophen 10/325 mg Tablet PO PRN ×3 (03:33→14:17)
[2022-12-20] MEDS: Octreotide Acetate 1,250 MCG in Sodium Chloride 0.9% 250 ML 250 ML IVPB SCH (04:36)
[2022-12-20] MEDS: Levothyroxine Sodium 75 MCG TAB PO SCH (05:27)
[2022-12-20 05:34] LABS: #Monocytes 0.8 thou/uL (0.11-0.59); #Neutrophils 5.9 thou/uL (1.40-6.50); %Basophils 0.2 % (0.0-1.0); %Eosinophils 0.5 % (0.0-10.0); %Lymphocytes 13.2 % (21.0-51.0); %Monocytes 9.7 % (0.0-10.0); %Neutrophils 76.5 % (42.0-75.0); Mean Corpuscular HGB CONC 32.5 g/dL (32.0-36.0); Mean Corpuscular Hemoglobin 30.2 pg (27.0-31.0); Mean Corpuscular Volume 93.2 fl (78.0-98.0); Mean Platelet Volume 9.6 fL (7.4-10.4); Platelet Count 242 10x3/uL (130-400); RBC Distribution Width 16.8 % (11.5-14.5); Red Blood Cell (RBC) Count 1.97 mill/uL (4.20-5.40); White Blood Cell (WBC) Count 7.7 10x3/uL (4.8-10.8)
[2022-12-20 05:56] LABS: Prothrombin Time 23.1 sec (12.0-14.7)
[2022-12-20 06:29] LABS: ALT (SGPT) 10 U/L (8-55); AST (SGOT) 17 U/L (5-34); Albumin 3.1 g/dL (3.4-4.8); Alkaline Phosphatase 58 U/L (40-110); Anion Gap 16 mmol/L (10-20); BUN (Urea Nitrogen) 19 mg/dL (9.8-20.1); Bilirubin, Total 0.4 mg/dL (0.2-1.2); Calc. Creatinine Clearance 36 mL/min (70-130); Calcium 8.7 mg/dL (7.8-10.44); Carbon Dioxide 22 mmol/L (23-31); Chloride 106 mmol/L (98-107); Estimated GFR 42; Glucose 102 mg/dL (80-115); Potassium 3.7 mmol/L (3.5-5.1); Protein, Total 5.1 g/dL (5.8-8.1); Sodium 140 mmol/L (136-145)
[2022-12-20] MEDS: predniSONE 5 MG TAB PO SCH (08:35)
[2022-12-20] MEDS: Gabapentin 100 MG CAP PO SCH ×3 (08:35→21:43)
[2022-12-20] MEDS: cycloSPORINE, Modified 100 MG CAP PO SCH ×2 (08:36→21:45)
[2022-12-20] MEDS: Mycophenolate 250 MG CAP PO SCH ×2 (08:36→21:45)
[2022-12-20] MEDS: Ferrous Sulfate 325 MG TAB PO SCH (08:36)
[2022-12-20] MEDS: Amiodarone 200 MG TAB PO SCH (08:36)
[2022-12-20] MEDS: Escitalopram Oxalate 10 mg Tablet PO SCH (08:37)
[2022-12-20] MEDS: Pantoprazole 40 MG VIAL IVP SCH ×2 (08:37→21:45)
[2022-12-20 09:32] LABS: Hemoglobin 6.5 g/dL (12.0-16.0)
[2022-12-20] MEDS: Atorvastatin Calcium 40 MG TAB PO SCH (21:46)
[2022-12-21 05:17] LABS: #Eosinphils 0.1 thou/uL (0.0-0.7); #Lymphocytes 0.9 thou/uL (1.20-3.40); #Monocytes 0.5 thou/uL (0.11-0.59); %Basophils 0.1 % (0.0-1.0); %Lymphocytes 16.7 % (21.0-51.0); %Monocytes 8.8 % (0.0-10.0); %Neutrophils 73.4 % (42.0-75.0); Hemoglobin 9.3 g/dL (12.0-16.0); Mean Corpuscular HGB CONC 33.5 g/dL (32.0-36.0); Mean Corpuscular Hemoglobin 30.5 pg (27.0-31.0); Mean Corpuscular Volume 90.9 fl (78.0-98.0); Mean Platelet Volume 9.5 fL (7.4-10.4); Platelet Count 214 10x3/uL (130-400); RBC Distribution Width 15.3 % (11.5-14.5); Red Blood Cell (RBC) Count 3.04 mill/uL (4.20-5.40); White Blood Cell (WBC) Count 5.5 10x3/uL (4.8-10.8)
[2022-12-21 05:38] LABS: Anion Gap 16 mmol/L (10-20); BUN (Urea Nitrogen) 20 mg/dL (9.8-20.1); Calc. Creatinine Clearance 41 mL/min (70-130); Calcium 8.7 mg/dL (7.8-10.44); Carbon Dioxide 21 mmol/L (23-31); Chloride 106 mmol/L (98-107); Estimated GFR 49; Glucose 103 mg/dL (80-115); Potassium 3.7 mmol/L (3.5-5.1); Sodium 139 mmol/L (136-145)
[2022-12-21] MEDS: Levothyroxine Sodium 75 MCG TAB PO SCH (06:05)
[2022-12-21] MEDS: predniSONE 5 MG TAB PO SCH (09:56)
[2022-12-21] MEDS: Amiodarone 200 MG TAB PO SCH (09:56)
[2022-12-21] MEDS: Mycophenolate 250 MG CAP PO SCH ×2 (09:56→20:33)
[2022-12-21] MEDS: Escitalopram Oxalate 10 mg Tablet PO SCH (09:57)
[2022-12-21] MEDS: Gabapentin 100 MG CAP PO SCH ×3 (09:57→20:31)
[2022-12-21] MEDS: Pantoprazole 40 MG VIAL IVP SCH ×2 (09:58→20:31)
[2022-12-21] MEDS: Ferrous Sulfate 325 MG TAB PO SCH (09:58)
[2022-12-21] MEDS: cycloSPORINE, Modified 25 MG CAP PO SCH ×2 (10:00→20:36)
[2022-12-21] MEDS: HYDROcodone/Acetaminophen 10/325 mg Tablet PO PRN ×2 (10:11→20:34)
[2022-12-21 15:15] LABS: Hemoglobin 9.3 g/dL (12.0-16.0)
[2022-12-21 17:34] LABS: INR-International Normal Ratio 1.8; PTT 50.8 sec (22.9-36.1); Prothrombin Time 21.8 sec (12.0-14.7)
[2022-12-21] MEDS: Heparin 25,000 units/D5W 500 ML IV SCH (18:10)
[2022-12-21] MEDS: Atorvastatin Calcium 40 MG TAB PO SCH (20:34)
[2022-12-21] MEDS ORDERED: Heparin 10,000 UNITS/ 10 ML VIAL SLOW IVP SCH (21:00)
[2022-12-22 05:08] LABS: #Eosinphils 0.1 thou/uL (0.0-0.7); #Lymphocytes 1.3 thou/uL (1.20-3.40); #Monocytes 0.5 thou/uL (0.11-0.59); #Neutrophils 3.4 thou/uL (1.40-6.50); %Basophils 0.5 % (0.0-1.0); %Lymphocytes 24.9 % (21.0-51.0); %Neutrophils 63.6 % (42.0-75.0); Hemoglobin 8.9 g/dL (12.0-16.0); Mean Corpuscular HGB CONC 32.5 g/dL (32.0-36.0); Mean Corpuscular Hemoglobin 29.4 pg (27.0-31.0); Mean Corpuscular Volume 90.6 fl (78.0-98.0); Mean Platelet Volume 9.5 fL (7.4-10.4); Platelet Count 212 10x3/uL (130-400); RBC Distribution Width 15.3 % (11.5-14.5); Red Blood Cell (RBC) Count 3.03 mill/uL (4.20-5.40); White Blood Cell (WBC) Count 5.3 10x3/uL (4.8-10.8)
[2022-12-22] MEDS: Levothyroxine Sodium 75 MCG TAB PO SCH (05:16)
[2022-12-22] MEDS: HYDROcodone/Acetaminophen 10/325 mg Tablet PO PRN ×2 (05:18→10:50)
[2022-12-22 05:25] LABS: Anion Gap 12 mmol/L (10-20); BUN (Urea Nitrogen) 16 mg/dL (9.8-20.1); Calc. Creatinine Clearance 41 mL/min (70-130); Calcium 8.6 mg/dL (7.8-10.44); Carbon Dioxide 24 mmol/L (23-31); Chloride 107 mmol/L (98-107); Estimated GFR 50; Glucose 109 mg/dL (80-115); Potassium 3.2 mmol/L (3.5-5.1); Sodium 140 mmol/L (136-145)
[2022-12-22] MEDS ORDERED: Electrolyte Replacement Protocol 1 EACH FS SCH (07:53)
[2022-12-22] MEDS ORDERED: Magnesium 2 GM/50 ML(in water) 2 GM in Premix Bag 1 BAG IVPB SCH (08:30)
[2022-12-22] MEDS ORDERED: Potassium Chloride 20 MEQ TAB PO SCH (09:00)
[2022-12-22] MEDS: Mycophenolate 250 MG CAP PO SCH ×2 (10:47→21:33)
[2022-12-22] MEDS: Gabapentin 100 MG CAP PO SCH ×3 (10:48→21:33)
[2022-12-22] MEDS: Escitalopram Oxalate 10 mg Tablet PO SCH (10:48)
[2022-12-22] MEDS: predniSONE 5 MG TAB PO SCH (10:49)
[2022-12-22] MEDS: Pantoprazole 40 MG VIAL IVP SCH ×2 (10:50→21:31)
[2022-12-22] MEDS: cycloSPORINE, Modified 25 MG CAP PO SCH ×2 (10:51→21:33)
[2022-12-22] MEDS: Ferrous Sulfate 325 MG TAB PO SCH (12:43)
[2022-12-22] MEDS: Amiodarone 200 MG TAB PO SCH (12:43)
[2022-12-22 17:16] LABS: Hemoglobin 8.1 g/dL (12.0-16.0)
[2022-12-22] MEDS ORDERED: Warfarin Sodium 5 MG TAB PO SCH (17:30)
[2022-12-22] MEDS ORDERED: Warfarin Sodium 2.5 MG TAB PO SCH (18:00)
[2022-12-22 20:05] LABS: Hemoglobin 8.7 g/dL (12.0-16.0)
[2022-12-22] MEDS: Atorvastatin Calcium 40 MG TAB PO SCH (21:33)
[2022-12-23 04:26] LABS: #Eosinphils 0.1 thou/uL (0.0-0.7); #Monocytes 0.4 thou/uL (0.11-0.59); #Neutrophils 3.4 thou/uL (1.40-6.50); %Basophils 0.8 % (0.0-1.0); %Lymphocytes 19.7 % (21.0-51.0); %Monocytes 7.3 % (0.0-10.0); %Neutrophils 70.2 % (42.0-75.0); Mean Corpuscular HGB CONC 32.5 g/dL (32.0-36.0); Mean Corpuscular Hemoglobin 30.1 pg (27.0-31.0); Mean Corpuscular Volume 92.6 fl (78.0-98.0); Mean Platelet Volume 9.6 fL (7.4-10.4); Platelet Count 222 10x3/uL (130-400); RBC Distribution Width 15.3 % (11.5-14.5); Red Blood Cell (RBC) Count 2.97 mill/uL (4.20-5.40); White Blood Cell (WBC) Count 4.8 10x3/uL (4.8-10.8)
[2022-12-23 04:43] LABS: ALT (SGPT) 9 U/L (8-55); AST (SGOT) 13 U/L (5-34); Albumin 3.1 g/dL (3.4-4.8); Alkaline Phosphatase 69 U/L (40-110); Anion Gap 13 mmol/L (10-20); BUN (Urea Nitrogen) 17 mg/dL (9.8-20.1); Bilirubin, Total 0.3 mg/dL (0.2-1.2); Calc. Creatinine Clearance 34 mL/min (70-130); Calcium 8.6 mg/dL (7.8-10.44); Carbon Dioxide 22 mmol/L (23-31); Chloride 110 mmol/L (98-107); Estimated GFR 40; Globulin 2.2 g/dL (2.4-3.5); Glucose 112 mg/dL (80-115); Protein, Total 5.3 g/dL (5.8-8.1); Sodium 141 mmol/L (136-145)
[2022-12-23 05:13] LABS: INR-International Normal Ratio 1.5
[2022-12-23 05:14] LABS: PTT 77.9 sec (22.9-36.1)
[2022-12-23] MEDS: Levothyroxine Sodium 75 MCG TAB PO SCH (05:24)
[2022-12-23] MEDS: Heparin 25,000 units/D5W 500 ML IV SCH (07:58)
[2022-12-23 09:41] LABS: Magnesium 2.3 mg/dL (1.6-2.6)
[2022-12-23] MEDS: Mycophenolate 250 MG CAP PO SCH ×2 (09:45→22:12)
[2022-12-23] MEDS: Amiodarone 200 MG TAB PO SCH (09:45)
[2022-12-23] MEDS: Escitalopram Oxalate 10 mg Tablet PO SCH (09:45)
[2022-12-23] MEDS: predniSONE 5 MG TAB PO SCH (09:45)
[2022-12-23] MEDS: Ferrous Sulfate 325 MG TAB PO SCH (09:45)
[2022-12-23] MEDS: cycloSPORINE, Modified 25 MG CAP PO SCH ×2 (09:46→22:14)
[2022-12-23] MEDS: Gabapentin 100 MG CAP PO SCH ×3 (09:46→22:13)
[2022-12-23] MEDS: Pantoprazole 40 MG VIAL IVP SCH ×2 (09:47→22:15)
[2022-12-23] MEDS: HYDROcodone/Acetaminophen 10/325 mg Tablet PO PRN ×2 (10:42→17:41)
[2022-12-23] MEDS ORDERED: Warfarin Sodium 5 MG TAB PO SCH (17:00)
[2022-12-23] MEDS: Atorvastatin Calcium 40 MG TAB PO SCH (22:14)
[2022-12-24 05:30] LABS: #Eosinphils 0.1 thou/uL (0.0-0.7); #Lymphocytes 1.2 thou/uL (1.20-3.40); #Monocytes 0.3 thou/uL (0.11-0.59); #Neutrophils 2.3 thou/uL (1.40-6.50); %Basophils 0.6 % (0.0-1.0); %Lymphocytes 29.7 % (21.0-51.0); %Monocytes 8.4 % (0.0-10.0); %Neutrophils 58.4 % (42.0-75.0); Hemoglobin 8.7 g/dL (12.0-16.0); Mean Corpuscular HGB CONC 31.7 g/dL (32.0-36.0); Mean Corpuscular Hemoglobin 29.8 pg (27.0-31.0); Mean Corpuscular Volume 94.1 fl (78.0-98.0); Mean Platelet Volume 9.6 fL (7.4-10.4); Platelet Count 236 10x3/uL (130-400); RBC Distribution Width 15.3 % (11.5-14.5)
[2022-12-24 05:48] LABS: INR-International Normal Ratio 1.8; Prothrombin Time 21.6 sec (12.0-14.7)
[2022-12-24] MEDS: Levothyroxine Sodium 75 MCG TAB PO SCH (05:48)
[2022-12-24 05:52] LABS: ALT (SGPT) 7 U/L (8-55); AST (SGOT) 10 U/L (5-34); Alkaline Phosphatase 67 U/L (40-110); Anion Gap 13 mmol/L (10-20); BUN (Urea Nitrogen) 18 mg/dL (9.8-20.1); Bilirubin, Total 0.3 mg/dL (0.2-1.2); Calc. Creatinine Clearance 41 mL/min (70-130); Calcium 8.7 mg/dL (7.8-10.44); Carbon Dioxide 22 mmol/L (23-31); Chloride 109 mmol/L (98-107); Estimated GFR 49; Globulin 2.3 g/dL (2.4-3.5); Glucose 106 mg/dL (80-115); Potassium 3.7 mmol/L (3.5-5.1); Protein, Total 5.3 g/dL (5.8-8.1); Sodium 140 mmol/L (136-145)
[2022-12-24] MEDS: HYDROcodone/Acetaminophen 10/325 mg Tablet PO PRN ×2 (09:36→20:56)
[2022-12-24] MEDS: Ferrous Sulfate 325 MG TAB PO SCH (09:36)
[2022-12-24] MEDS: Mycophenolate 250 MG CAP PO SCH ×2 (09:36→20:55)
[2022-12-24] MEDS: cycloSPORINE, Modified 25 MG CAP PO SCH ×2 (09:37→20:55)
[2022-12-24] MEDS: Escitalopram Oxalate 10 mg Tablet PO SCH (09:37)
[2022-12-24] MEDS: Pantoprazole 40 MG VIAL IVP SCH ×2 (09:37→20:56)
[2022-12-24] MEDS: predniSONE 5 MG TAB PO SCH (09:37)
[2022-12-24] MEDS: Gabapentin 100 MG CAP PO SCH ×3 (09:37→20:55)
[2022-12-24] MEDS: Amiodarone 200 MG TAB PO SCH (09:39)
[2022-12-24 16:06] LABS: Hemoglobin 8.5 g/dL (12.0-16.0)
[2022-12-24] MEDS ORDERED: Warfarin Sodium 10 MG TAB PO SCH (17:00)
[2022-12-24] MEDS ORDERED: Warfarin Sodium 5 MG TAB PO SCH ×2 (17:00)
[2022-12-24] MEDS: Heparin 25,000 units/D5W 500 ML IV SCH (20:53)
[2022-12-24] MEDS: Atorvastatin Calcium 40 MG TAB PO SCH (20:55)
[2022-12-24] MEDS ORDERED: Loperamide HCl 2 MG CAP PO SCH (23:00)
[2022-12-25 05:01] LABS: #Eosinphils 0.1 thou/uL (0.0-0.7); #Lymphocytes 1.1 thou/uL (1.20-3.40); #Monocytes 0.5 thou/uL (0.11-0.59); #Neutrophils 2.8 thou/uL (1.40-6.50); %Basophils 0.5 % (0.0-1.0); %Eosinophils 2.2 % (0.0-10.0); %Lymphocytes 25.2 % (21.0-51.0); %Monocytes 10.7 % (0.0-10.0); %Neutrophils 61.3 % (42.0-75.0); Hemoglobin 9.6 g/dL (12.0-16.0); Mean Corpuscular HGB CONC 32.5 g/dL (32.0-36.0); Mean Corpuscular Hemoglobin 30.4 pg (27.0-31.0); Mean Corpuscular Volume 93.6 fl (78.0-98.0); Mean Platelet Volume 9.8 fL (7.4-10.4); Platelet Count 217 10x3/uL (130-400); RBC Distribution Width 15.1 % (11.5-14.5); Red Blood Cell (RBC) Count 3.15 mill/uL (4.20-5.40); White Blood Cell (WBC) Count 4.5 10x3/uL (4.8-10.8)
[2022-12-25 05:08] LABS: Prothrombin Time 23.4 sec (12.0-14.7)
[2022-12-25 05:09] LABS: PTT 88.7 sec (22.9-36.1)
[2022-12-25 05:11] LABS: Anion Gap 14 mmol/L (10-20); BUN (Urea Nitrogen) 19 mg/dL (9.8-20.1); Calc. Creatinine Clearance 37 mL/min (70-130); Calcium 9.2 mg/dL (7.8-10.44); Carbon Dioxide 23 mmol/L (23-31); Chloride 107 mmol/L (98-107); Estimated GFR 44; Glucose 99 mg/dL (80-115); Potassium 3.9 mmol/L (3.5-5.1); Sodium 140 mmol/L (136-145)
[2022-12-25] MEDS: Levothyroxine Sodium 75 MCG TAB PO SCH (05:36)
[2022-12-25] MEDS: cycloSPORINE, Modified 25 MG CAP PO SCH (08:26)
[2022-12-25] MEDS: Gabapentin 100 MG CAP PO SCH ×3 (08:26→21:51)
[2022-12-25] MEDS: predniSONE 5 MG TAB PO SCH (08:26)
[2022-12-25] MEDS: Amiodarone 200 MG TAB PO SCH (08:27)
[2022-12-25] MEDS: Escitalopram Oxalate 10 mg Tablet PO SCH (08:27)
[2022-12-25] MEDS: Ferrous Sulfate 325 MG TAB PO SCH (08:27)
[2022-12-25] MEDS: Pantoprazole 40 MG VIAL IVP SCH ×2 (08:29→21:52)
[2022-12-25] MEDS: Mycophenolate 250 MG CAP PO SCH ×2 (08:29→21:51)
[2022-12-25] MEDS: HYDROcodone/Acetaminophen 10/325 mg Tablet PO PRN ×3 (08:34→21:57)
[2022-12-25] MEDS: Saccharomyces boulardii 250 MG CAP PO SCH (08:34)
[2022-12-25] MEDS ORDERED: Warfarin Sodium 2.5 MG TAB PO SCH ×2 (17:00)
[2022-12-25] MEDS: Atorvastatin Calcium 40 MG TAB PO SCH (21:51)
[2022-12-25] MEDS: Metamucil PACK PO SCH (21:52)
[2022-12-25] MEDS: cycloSPORINE, Modified 100 MG CAP PO SCH (21:58)
[2022-12-26 05:30] LABS: #Eosinphils 0.1 thou/uL (0.0-0.7); #Lymphocytes 1.2 thou/uL (1.20-3.40); #Monocytes 0.5 thou/uL (0.11-0.59); #Neutrophils 3.6 thou/uL (1.40-6.50); %Basophils 0.5 % (0.0-1.0); %Eosinophils 2.6 % (0.0-10.0); %Lymphocytes 21.6 % (21.0-51.0); %Monocytes 8.5 % (0.0-10.0); %Neutrophils 66.8 % (42.0-75.0); Hemoglobin 8.7 g/dL (12.0-16.0); Mean Corpuscular HGB CONC 31.8 g/dL (32.0-36.0); Mean Corpuscular Hemoglobin 29.7 pg (27.0-31.0); Mean Corpuscular Volume 93.3 fl (78.0-98.0); Mean Platelet Volume 9.6 fL (7.4-10.4); Platelet Count 243 10x3/uL (130-400); RBC Distribution Width 15.1 % (11.5-14.5); Red Blood Cell (RBC) Count 2.93 mill/uL (4.20-5.40); White Blood Cell (WBC) Count 5.4 10x3/uL (4.8-10.8)
[2022-12-26] MEDS: Levothyroxine Sodium 75 MCG TAB PO SCH (05:43)
[2022-12-26 05:48] LABS: INR-International Normal Ratio 2.1; Prothrombin Time 24.6 sec (12.0-14.7)
[2022-12-26 05:57] LABS: Anion Gap 14 mmol/L (10-20); BUN (Urea Nitrogen) 22 mg/dL (9.8-20.1); Calc. Creatinine Clearance 38 mL/min (70-130); Calcium 9.2 mg/dL (7.8-10.44); Carbon Dioxide 22 mmol/L (23-31); Chloride 107 mmol/L (98-107); Estimated GFR 45; Glucose 99 mg/dL (80-115); Magnesium 1.7 mg/dL (1.6-2.6); Phosphorus 1.8 mg/dL (2.3-4.7); Potassium 3.7 mmol/L (3.5-5.1); Sodium 139 mmol/L (136-145)
[2022-12-26] MEDS ORDERED: PHOS-NAK 1 PKT PACK PO SCH (06:00)
[2022-12-26] MEDS ORDERED: Magnesium 2 GM/50 ML(in water) 2 GM in Premix Bag 1 BAG IVPB SCH ×2 (06:15→08:00)
[2022-12-26] MEDS: PHOS-NAK 1 PKT PACK PO SCH ×2 (08:41→13:15)
[2022-12-26] MEDS: Mycophenolate 250 MG CAP PO SCH (08:41)
[2022-12-26] MEDS: Gabapentin 100 MG CAP PO SCH (08:42)
[2022-12-26] MEDS: Escitalopram Oxalate 10 mg Tablet PO SCH (08:42)
[2022-12-26] MEDS: predniSONE 5 MG TAB PO SCH (08:42)
[2022-12-26] MEDS: Amiodarone 200 MG TAB PO SCH (08:43)
[2022-12-26] MEDS: Ferrous Sulfate 325 MG TAB PO SCH (08:43)
[2022-12-26] MEDS: Pantoprazole 40 MG VIAL IVP SCH (08:44)
[2022-12-26] MEDS: Saccharomyces boulardii 250 MG CAP PO SCH (08:45)
[2022-12-26] MEDS: cycloSPORINE, Modified 100 MG CAP PO SCH (08:45)
[2022-12-26 11:49] VITALS: BP 138/71; TEMP 97
[2022-12-26] MEDS: Metamucil PACK PO SCH (12:38)
[2022-12-26 13:20] LABS: Campy jejuni + coli by PCR Negative (Negative); STEC Shiga Toxin 1+2 Negative (Negative); Salmonella spp. by PCR Negative (Negative); Shigella spp + EIEC by PCR Negative (Negative)
== END 2022-12-26 14:40 | disposition home or self-care (01) | DRG 394 ==
LOC: 2NO 19:39
PROVIDERS: ADMIT Internal Medicine; ATTEND Internal Medicine
PROC: 0W3P8ZZ Control Bleeding in Gastrointestinal Tract, Via Natural or Artificial Opening Endoscopic (ICD-10-PCS; principal; 2022-12-19)
PROC: 0DB38ZX Excision of Lower Esophagus, Via Natural or Artificial Opening Endoscopic, Diagnostic (ICD-10-PCS; 2022-12-19)
PROC: 30233N1 Transfusion of Nonautologous Red Blood Cells into Peripheral Vein, Percutaneous Approach (ICD-10-PCS; 2022-12-20)
DX: K62.7 Radiation proctitis (principal); D62 Acute posthemorrhagic anemia; Z94.0 Kidney transplant status; K21.00 Gastro-esophageal reflux disease with esophagitis, without bleeding; K44.9 Diaphragmatic hernia without obstruction or gangrene; Y84.2 Radiological procedure and radiotherapy as the cause of abnormal reaction of the patient, or of later complication, without mention of misadventure at the time of the procedure; K22.70 Barrett's esophagus without dysplasia; E03.9 Hypothyroidism, unspecified; E78.5 Hyperlipidemia, unspecified; I73.9 Peripheral vascular disease, unspecified; I10 Essential (primary) hypertension; K57.30 Diverticulosis of large intestine without perforation or abscess without bleeding; K64.8 Other hemorrhoids; Z92.21 Personal history of antineoplastic chemotherapy; Z88.5 Allergy status to narcotic agent; Z85.048 Personal history of other malignant neoplasm of rectum, rectosigmoid junction, and anus; Z92.3 Personal history of irradiation; Z79.01 Long term (current) use of anticoagulants; Z95.2 Presence of prosthetic heart valve; Z88.1 Allergy status to other antibiotic agents; Z79.899 Other long term (current) drug therapy; Z79.890 Hormone replacement therapy; Z79.52 Long term (current) use of systemic steroids; Z79.51 Long term (current) use of inhaled steroids; Z79.02 Long term (current) use of antithrombotics/antiplatelets; Z90.5 Acquired absence of kidney; Z89.441 Acquired absence of right ankle
CPT/HCPCS: 36415; 36430; 71045; 80048; 80053; 83735; 84100; 85025; 85610; 85730; 86850; 86900; 86901; 87505; 88305; 93005; 93010; C9113; J1644; J2354; J2370; J2704; J3010; J3475; J7050; J7502; J7512; J7515; J7517; P9016; P9040

== ENCOUNTER 2023-04-22 17:07 | Inpatient (IN) | payer MEDICARE ==
[2023-04-22] MEDS ORDERED: Senokot S 8.6-50 MG TAB PO PRN (19:47)
[2023-04-22] MEDS ORDERED: HYDROcodone/Acetaminophen 5/325 mg Tablet PO PRN ×3 (19:47→21:03)
[2023-04-22 20:09] LABS: Hematocrit 28.4 % (36.0-47.0); Hemoglobin 8.3 g/dL (12.0-16.0)
[2023-04-22] MEDS ORDERED: Famotidine 20 MG TAB PO SCH (21:00)
[2023-04-22] MEDS: traZODone HCl 50 MG TAB PO SCH (21:15)
[2023-04-22] MEDS: Rosuvastatin 10 MG TAB PO SCH (21:15)
[2023-04-22] MEDS: DULoxetine 30 MG CAP PO SCH (21:15)
[2023-04-22] MEDS: Sucralfate 1 GM TAB PO SCH (21:17)
[2023-04-22] MEDS: Mycophenolate 250 MG CAP PO SCH (21:17)
[2023-04-22 22:00] LABS: Magnesium 1.9 mg/dL (1.6-2.6); Phosphorus 2.7 mg/dL (2.3-4.7)
[2023-04-22] MEDS ORDERED: cycloSPORINE, Modified 100 MG CAP PO SCH (22:50)
[2023-04-22 23:13] LABS: #Basophils 0.1 thou/uL (0.0-0.2); #Eosinphils 0.1 thou/uL (0.0-0.7); #Monocytes 0.5 thou/uL (0.11-0.59); #Neutrophils 3.5 thou/uL (1.40-6.50); %Eosinophils 1.8 % (0.0-10.0); %Lymphocytes 17.5 % (21.0-51.0); %Monocytes 9.8 % (0.0-10.0); %Neutrophils 68.5 % (42.0-75.0); Hematocrit 27.6 % (36.0-47.0); Hemoglobin 8.2 g/dL (12.0-16.0); Mean Corpuscular HGB CONC 29.7 g/dL (32.0-36.0); Mean Corpuscular Hemoglobin 27.6 pg (27.0-31.0); Mean Corpuscular Volume 92.9 fl (78.0-98.0); Mean Platelet Volume 10.1 fL (7.4-10.4); Platelet Count 429 10x3/uL (130-400); RBC Distribution Width 16.2 % (11.5-14.5); Red Blood Cell (RBC) Count 2.97 mill/uL (4.20-5.40); White Blood Cell (WBC) Count 5.1 10x3/uL (4.8-10.8)
[2023-04-22 23:39] LABS: Phosphorus 2.7 mg/dL (2.3-4.7)
[2023-04-22 23:40] LABS: ALT (SGPT) Less than 7 U/L (8-55); AST (SGOT) 15 U/L (5-34); Albumin 3.1 g/dL (3.4-4.8); Alkaline Phosphatase 89 U/L (40-110); Anion Gap 14 mmol/L (10-20); BUN (Urea Nitrogen) 28 mg/dL (9.8-20.1); Bilirubin, Total 0.4 mg/dL (0.2-1.2); Calc. Creatinine Clearance 32 mL/min (70-130); Calcium 9.3 mg/dL (7.8-10.44); Carbon Dioxide 25 mmol/L (23-31); Chloride 99 mmol/L (98-107); Estimated GFR 38; Globulin 2.2 g/dL (2.4-3.5); Glucose 104 mg/dL (80-115); Potassium 3.8 mmol/L (3.5-5.1); Protein, Total 5.3 g/dL (5.8-8.1); Sodium 134 mmol/L (136-145)
[2023-04-23 04:39] LABS: #Basophils 0.1 thou/uL (0.0-0.2); #Eosinphils 0.1 thou/uL (0.0-0.7); #Monocytes 0.6 thou/uL (0.11-0.59); #Neutrophils 3.2 thou/uL (1.40-6.50); %Eosinophils 2.2 % (0.0-10.0); %Lymphocytes 19.3 % (21.0-51.0); %Monocytes 12.1 % (0.0-10.0); %Neutrophils 63.8 % (42.0-75.0); Hematocrit 27.7 % (36.0-47.0); Hemoglobin 8.2 g/dL (12.0-16.0); Mean Corpuscular HGB CONC 29.6 g/dL (32.0-36.0); Mean Corpuscular Hemoglobin 27.8 pg (27.0-31.0); Mean Corpuscular Volume 93.9 fl (78.0-98.0); Mean Platelet Volume 10.6 fL (7.4-10.4); Platelet Count 437 10x3/uL (130-400); RBC Distribution Width 16.3 % (11.5-14.5); Red Blood Cell (RBC) Count 2.95 mill/uL (4.20-5.40)
[2023-04-23 04:42] LABS: Hematocrit 28.4 % (36.0-47.0); Hemoglobin 8.3 g/dL (12.0-16.0)
[2023-04-23 04:58] LABS: ALT (SGPT) 7 U/L (8-55); AST (SGOT) 14 U/L (5-34); Alkaline Phosphatase 81 U/L (40-110); Anion Gap 14 mmol/L (10-20); BUN (Urea Nitrogen) 25 mg/dL (9.8-20.1); Bilirubin, Total 0.4 mg/dL (0.2-1.2); Calc. Creatinine Clearance 33 mL/min (70-130); Calcium 9.9 mg/dL (7.8-10.44); Carbon Dioxide 24 mmol/L (23-31); Chloride 101 mmol/L (98-107); Estimated GFR 40; Globulin 2.7 g/dL (2.4-3.5); Glucose 95 mg/dL (80-115); Potassium 3.8 mmol/L (3.5-5.1); Protein, Total 5.7 g/dL (5.8-8.1); Sodium 135 mmol/L (136-145)
[2023-04-23] MEDS: Levothyroxine Sodium 75 MCG TAB PO SCH (05:23)
[2023-04-23] MEDS ORDERED: EPINEPHrine 1 MG/10 ML Abboject SYRINGE ONE (08:19)
[2023-04-23] MEDS ORDERED: Dexamethasone 4 mg/ml Vial ONE (08:19)
[2023-04-23] MEDS ORDERED: Bupivacaine PF 0.5% 30 ML VIAL ONE ×2 (08:19→08:55)
[2023-04-23] MEDS ORDERED: Lidocaine 1% PF 5 ML VIAL ONE (08:26)
[2023-04-23] MEDS ORDERED: PROPOFOL 200 MG/20 ML VIAL ONE (08:26)
[2023-04-23] MEDS ORDERED: PHENYLEPHRINE-NS 100 MCG/ML 10 ML SYRINGE ONE (08:26)
[2023-04-23] MEDS ORDERED: Midazolam HCl 2 mg/2 ml Vial ONE (08:28)
[2023-04-23] MEDS ORDERED: fentaNYL 50 mcg/mL 1 mL Vial ONE (08:28)
[2023-04-23] MEDS ORDERED: Norepinephrine 4 MG/4 ML VIAL ONE (08:50)
[2023-04-23] MEDS ORDERED: EPINEPHrine 1 MG/ML AMP ONE (08:55)
[2023-04-23] MEDS ORDERED: CEFAZOLIN 2 GM in Sodium Chloride 0.9% 100 ML IVPB SCH (09:00)
[2023-04-23] MEDS: Escitalopram Oxalate 10 mg Tablet PO SCH (11:29)
[2023-04-23] MEDS: Ferrous Sulfate 325 MG TAB PO SCH (11:29)
[2023-04-23] MEDS: predniSONE 5 MG TAB PO SCH (11:29)
[2023-04-23] MEDS: DULoxetine 30 MG CAP PO SCH ×2 (11:29→22:02)
[2023-04-23] MEDS: Fenofibrate Nanocrystallized 145 MG TAB PO SCH (11:29)
[2023-04-23] MEDS: Mycophenolate 250 MG CAP PO SCH ×2 (11:30→22:02)
[2023-04-23] MEDS: cycloSPORINE, Modified 100 MG CAP PO SCH ×2 (11:32→22:02)
[2023-04-23] MEDS: Multivitamin W/ Minerals 1 TAB PO SCH (11:32)
[2023-04-23] MEDS: Sucralfate 1 GM TAB PO SCH (11:42)
[2023-04-23 14:59] LABS: Hematocrit 27.7 % (36.0-47.0); Hemoglobin 8.5 g/dL (12.0-16.0)
[2023-04-23] MEDS ORDERED: Acetaminophen 325 MG TAB PO PRN (15:04)
[2023-04-23] MEDS: CEFAZOLIN 2 GM in Sodium Chloride 0.9% 100 ML IVPB SCH (17:16)
[2023-04-23] MEDS: Rosuvastatin 10 MG TAB PO SCH (22:02)
[2023-04-23] MEDS: traZODone HCl 50 MG TAB PO SCH (22:02)
[2023-04-23] MEDS: traMADol HCl 50 MG TAB PO PRN (22:14)
[2023-04-24] MEDS: CEFAZOLIN 2 GM in Sodium Chloride 0.9% 100 ML IVPB SCH ×2 (01:09→08:41)
[2023-04-24] MEDS: fentaNYL 50 mcg/mL 1 mL Vial SLOW IVP PRN ×5 (02:38→21:27)
[2023-04-24 04:37] LABS: Hematocrit 27.1 % (36.0-47.0); Mean Corpuscular HGB CONC 29.5 g/dL (32.0-36.0); Mean Corpuscular Hemoglobin 27.6 pg (27.0-31.0); Mean Corpuscular Volume 93.4 fl (78.0-98.0); Mean Platelet Volume 10.7 fL (7.4-10.4); Platelet Count 399 10x3/uL (130-400); RBC Distribution Width 16.4 % (11.5-14.5); White Blood Cell (WBC) Count 7.5 10x3/uL (4.8-10.8)
[2023-04-24 04:44] LABS: INR-International Normal Ratio 1.7
[2023-04-24 04:56] LABS: Anion Gap 14 mmol/L (10-20); BUN (Urea Nitrogen) 22 mg/dL (9.8-20.1); Calc. Creatinine Clearance 33 mL/min (70-130); Calcium 9.5 mg/dL (7.8-10.44); Carbon Dioxide 24 mmol/L (23-31); Chloride 101 mmol/L (98-107); Estimated GFR 40; Glucose 94 mg/dL (80-115); Potassium 3.5 mmol/L (3.5-5.1); Sodium 135 mmol/L (136-145)
[2023-04-24] MEDS: Levothyroxine Sodium 75 MCG TAB PO SCH (06:11)
[2023-04-24] MEDS: predniSONE 5 MG TAB PO SCH (08:40)
[2023-04-24] MEDS: Ferrous Sulfate 325 MG TAB PO SCH (08:40)
[2023-04-24] MEDS: Fenofibrate Nanocrystallized 145 MG TAB PO SCH (08:40)
[2023-04-24] MEDS: Multivitamin W/ Minerals 1 TAB PO SCH (08:40)
[2023-04-24] MEDS: traMADol HCl 50 MG TAB PO PRN ×2 (08:41→16:08)
[2023-04-24] MEDS: Polyethylene Glycol 3350 17 GM Packet PO SCH (08:41)
[2023-04-24] MEDS: DULoxetine 30 MG CAP PO SCH ×2 (08:41→21:27)
[2023-04-24] MEDS: cycloSPORINE, Modified 100 MG CAP PO SCH ×2 (08:41→20:00)
[2023-04-24] MEDS: Escitalopram Oxalate 10 mg Tablet PO SCH (08:41)
[2023-04-24] MEDS: Mycophenolate 250 MG CAP PO SCH ×2 (08:41→20:00)
[2023-04-24 13:13] LABS: Hematocrit 26.4 % (36.0-47.0)
[2023-04-24] MEDS: HYDROcodone/Acetaminophen 5/325 mg Tablet PO PRN (19:54)
[2023-04-24] MEDS: traZODone HCl 50 MG TAB PO SCH (20:00)
[2023-04-24] MEDS: Docusate 100 MG CAP PO SCH (20:00)
[2023-04-24] MEDS: Rosuvastatin 10 MG TAB PO SCH (20:01)
[2023-04-25] MEDS: HYDROcodone/Acetaminophen 5/325 mg Tablet PO PRN ×4 (02:18→22:15)
[2023-04-25 04:40] LABS: Hematocrit 25.9 % (36.0-47.0); Hemoglobin 7.8 g/dL (12.0-16.0); Mean Corpuscular HGB CONC 30.1 g/dL (32.0-36.0); Mean Corpuscular Hemoglobin 27.3 pg (27.0-31.0); Mean Corpuscular Volume 90.6 fl (78.0-98.0); Mean Platelet Volume 10.9 fL (7.4-10.4); Platelet Count 385 10x3/uL (130-400); RBC Distribution Width 16.2 % (11.5-14.5); Red Blood Cell (RBC) Count 2.86 mill/uL (4.20-5.40); White Blood Cell (WBC) Count 7.8 10x3/uL (4.8-10.8)
[2023-04-25 05:11] LABS: Anion Gap 13 mmol/L (10-20); BUN (Urea Nitrogen) 16 mg/dL (9.8-20.1); Calc. Creatinine Clearance 39 mL/min (70-130); Calcium 9.6 mg/dL (7.8-10.44); Carbon Dioxide 23 mmol/L (23-31); Chloride 101 mmol/L (98-107); Estimated GFR 51; Glucose 115 mg/dL (80-115); Potassium 3.4 mmol/L (3.5-5.1); Sodium 134 mmol/L (136-145)
[2023-04-25] MEDS: Levothyroxine Sodium 75 MCG TAB PO SCH (06:04)
[2023-04-25] MEDS ORDERED: Potassium Chloride 20 MEQ TAB PO SCH (07:45)
[2023-04-25] MEDS: Multivitamin W/ Minerals 1 TAB PO SCH (08:56)
[2023-04-25] MEDS: Fenofibrate Nanocrystallized 145 MG TAB PO SCH (08:56)
[2023-04-25] MEDS: Docusate 100 MG CAP PO SCH ×2 (08:56→22:18)
[2023-04-25] MEDS: DULoxetine 30 MG CAP PO SCH ×2 (08:56→22:17)
[2023-04-25] MEDS: Polyethylene Glycol 3350 17 GM Packet PO SCH (08:56)
[2023-04-25] MEDS: Escitalopram Oxalate 10 mg Tablet PO SCH (08:56)
[2023-04-25] MEDS: predniSONE 5 MG TAB PO SCH (08:57)
[2023-04-25] MEDS: Mycophenolate 250 MG CAP PO SCH ×2 (09:06→22:22)
[2023-04-25] MEDS: cycloSPORINE, Modified 100 MG CAP PO SCH ×2 (09:06→22:18)
[2023-04-25] MEDS: traZODone HCl 50 MG TAB PO SCH (22:17)
[2023-04-25] MEDS: Rosuvastatin 10 MG TAB PO SCH (22:17)
[2023-04-26] MEDS: Levothyroxine Sodium 75 MCG TAB PO SCH (05:30)
[2023-04-26 08:37] LABS: Hematocrit 27.1 % (36.0-47.0); Hemoglobin 7.9 g/dL (12.0-16.0); Mean Corpuscular HGB CONC 29.2 g/dL (32.0-36.0); Mean Corpuscular Hemoglobin 27.1 pg (27.0-31.0); Mean Corpuscular Volume 93.1 fl (78.0-98.0); Mean Platelet Volume 10.8 fL (7.4-10.4); Platelet Count 452 10x3/uL (130-400); RBC Distribution Width 16.3 % (11.5-14.5); Red Blood Cell (RBC) Count 2.91 mill/uL (4.20-5.40); White Blood Cell (WBC) Count 6.3 10x3/uL (4.8-10.8)
[2023-04-26 09:03] LABS: Anion Gap 12 mmol/L (10-20); BUN (Urea Nitrogen) 16 mg/dL (9.8-20.1); Calc. Creatinine Clearance 40 mL/min (70-130); Carbon Dioxide 26 mmol/L (23-31); Chloride 102 mmol/L (98-107); Estimated GFR 51; Glucose 96 mg/dL (80-115); Potassium 4.1 mmol/L (3.5-5.1); Sodium 136 mmol/L (136-145)
[2023-04-26] MEDS: Mycophenolate 250 MG CAP PO SCH ×2 (09:21→21:21)
[2023-04-26] MEDS: Escitalopram Oxalate 10 mg Tablet PO SCH (09:21)
[2023-04-26] MEDS: Multivitamin W/ Minerals 1 TAB PO SCH (09:21)
[2023-04-26] MEDS: DULoxetine 30 MG CAP PO SCH ×2 (09:22→21:22)
[2023-04-26] MEDS: cycloSPORINE, Modified 100 MG CAP PO SCH ×2 (09:22→21:23)
[2023-04-26] MEDS: predniSONE 5 MG TAB PO SCH (09:22)
[2023-04-26] MEDS: Fenofibrate Nanocrystallized 145 MG TAB PO SCH (09:22)
[2023-04-26] MEDS: Polyethylene Glycol 3350 17 GM Packet PO SCH (09:24)
[2023-04-26] MEDS: Docusate 100 MG CAP PO SCH ×2 (09:24→21:22)
[2023-04-26] MEDS: HYDROcodone/Acetaminophen 5/325 mg Tablet PO PRN ×2 (11:49→18:13)
[2023-04-26] MEDS: Rosuvastatin 10 MG TAB PO SCH (21:22)
[2023-04-26] MEDS: traZODone HCl 50 MG TAB PO SCH (21:22)
[2023-04-27] MEDS: Levothyroxine Sodium 75 MCG TAB PO SCH (04:56)
[2023-04-27] MEDS ORDERED: Communication Order-Pharmacy FS ONE (07:48)
[2023-04-27] MEDS: Docusate 100 MG CAP PO SCH ×2 (08:58→21:49)
[2023-04-27] MEDS: Polyethylene Glycol 3350 17 GM Packet PO SCH (08:58)
[2023-04-27] MEDS: HYDROcodone/Acetaminophen 5/325 mg Tablet PO PRN ×3 (09:00→21:42)
[2023-04-27 09:06] LABS: Hematocrit 27.2 % (36.0-47.0); Hemoglobin 7.9 g/dL (12.0-16.0); Platelet Count 518 10x3/uL (130-400)
[2023-04-27] MEDS: predniSONE 5 MG TAB PO SCH (10:00)
[2023-04-27] MEDS: Escitalopram Oxalate 10 mg Tablet PO SCH (10:00)
[2023-04-27] MEDS: Multivitamin W/ Minerals 1 TAB PO SCH (10:00)
[2023-04-27] MEDS: cycloSPORINE, Modified 100 MG CAP PO SCH ×2 (10:00→21:41)
[2023-04-27] MEDS: DULoxetine 30 MG CAP PO SCH ×2 (10:00→21:42)
[2023-04-27] MEDS: Fenofibrate Nanocrystallized 145 MG TAB PO SCH (10:00)
[2023-04-27] MEDS: Mycophenolate 250 MG CAP PO SCH ×2 (10:00→21:42)
[2023-04-27 12:42] LABS: INR-International Normal Ratio 1.3; Prothrombin Time 16.4 sec (12.0-14.7)
[2023-04-27] MEDS ORDERED: Warfarin Sodium 5 MG TAB PO SCH (17:00)
[2023-04-27] MEDS: Rosuvastatin 10 MG TAB PO SCH (21:42)
[2023-04-27] MEDS: traZODone HCl 50 MG TAB PO SCH (21:42)
[2023-04-27] MEDS: traMADol HCl 50 MG TAB PO PRN (23:46)
[2023-04-28] MEDS: Levothyroxine Sodium 75 MCG TAB PO SCH (04:58)
[2023-04-28] MEDS: HYDROcodone/Acetaminophen 5/325 mg Tablet PO PRN ×2 (04:58→11:35)
[2023-04-28 06:38] LABS: INR-International Normal Ratio 1.2; Prothrombin Time 15.4 sec (12.0-14.7)
[2023-04-28 08:44] VITALS: TEMP 98
[2023-04-28] MEDS: Mycophenolate 250 MG CAP PO SCH (09:36)
[2023-04-28] MEDS: Docusate 100 MG CAP PO SCH (09:36)
[2023-04-28] MEDS: predniSONE 5 MG TAB PO SCH (09:36)
[2023-04-28] MEDS: DULoxetine 30 MG CAP PO SCH (09:36)
[2023-04-28] MEDS: Multivitamin W/ Minerals 1 TAB PO SCH (09:36)
[2023-04-28] MEDS: cycloSPORINE, Modified 100 MG CAP PO SCH (09:36)
[2023-04-28] MEDS: Fenofibrate Nanocrystallized 145 MG TAB PO SCH (09:36)
[2023-04-28] MEDS: Escitalopram Oxalate 10 mg Tablet PO SCH (09:36)
[2023-04-28] MEDS: Polyethylene Glycol 3350 17 GM Packet PO SCH (09:37)
[2023-04-28 11:11] VITALS: BMI 19.4
[2023-04-28 12:23] VITALS: BP 126/78
[2023-04-29] MEDS ORDERED: Warfarin Sodium 5 MG TAB PO SCH (17:00)
[2023-04-30] MEDS ORDERED: Warfarin Sodium 2.5 MG TAB PO SCH (17:00)
== END 2023-04-28 16:20 | disposition swing bed (61) | DRG 475 ==
LOC: UNDOADMIN 17:07 → IMCU/EMU 17:07 → T4-B 04-25 15:37
PROVIDERS: ADMIT Internal Medicine; ATTEND Internal Medicine
PROC: 0Y6J0Z1 Detachment at Left Lower Leg, High, Open Approach (ICD-10-PCS; principal; 2023-04-23)
DX: T87.44 Infection of amputation stump, left lower extremity (principal); E87.1 Hypo-osmolality and hyponatremia; N17.9 Acute kidney failure, unspecified; I96 Gangrene, not elsewhere classified; K22.10 Ulcer of esophagus without bleeding; T82.857A Stenosis of other cardiac prosthetic devices, implants and grafts, initial encounter; T86.19 Other complication of kidney transplant; I25.10 Atherosclerotic heart disease of native coronary artery without angina pectoris; E78.5 Hyperlipidemia, unspecified; E03.9 Hypothyroidism, unspecified; F32.A Depression, unspecified; Y83.8 Other surgical procedures as the cause of abnormal reaction of the patient, or of later complication, without mention of misadventure at the time of the procedure; N18.30 Chronic kidney disease, stage 3 unspecified; D63.1 Anemia in chronic kidney disease; K62.89 Other specified diseases of anus and rectum; K64.8 Other hemorrhoids; I12.9 Hypertensive chronic kidney disease with stage 1 through stage 4 chronic kidney disease, or unspecified chronic kidney disease; K62.7 Radiation proctitis; Z88.1 Allergy status to other antibiotic agents; Z79.899 Other long term (current) drug therapy; Z95.1 Presence of aortocoronary bypass graft; Z95.2 Presence of prosthetic heart valve; Z89.611 Acquired absence of right leg above knee; Z85.048 Personal history of other malignant neoplasm of rectum, rectosigmoid junction, and anus; Z85.038 Personal history of other malignant neoplasm of large intestine
CPT/HCPCS: 36415; 36416; 80048; 80053; 83735; 84100; 85014; 85018; 85025; 85027; 85049; 85610; 88307; 97139; J0171; J1100; J1650; J2250; J2704; J3010; J3490; J7502; J7512; J7517; S0020